=== PATIENT | male | born 1945 | race Caucasian/White ===

== ENCOUNTER 2016-08-05 06:14 | Inpatient (IN) | payer MEDICARE, OTHER ==
[2016-08-05] VITALS (9 sets, daily range): BP systolic 103–129; BP diastolic 51–88; PULSE 63–100; RESP 17–22; TEMP 97.8–99.5; O2SAT 92–100
[~2016-08-05] VITALS: Ht 170.2 cm; Wt 58.9 kg
[~2016-08-05 06:14] MED LIST: ACET325T PO; ALPR.25 PO; AMMO12CR4 TOP; BUME1TAB28 PO; CEFT500T3 PO; CLOT1CRE TOPICAL; DAKINSHST TOPICAL; ESCI10TA PO; FENO160T PO; FERR324T4 PO; FURO1TAB60 PO; GNP3TAB PO; HYDR-3583 PO; LEVO750T33 PO; LOSA100T PO; MAGO400T PO; METO100T9 PO; MULT1TAB84 PO; POTA-163 PO; RIVA4.6T T-DERMAL; XARE10TA PO
[2016-08-05 07:06] LABS: AUTOMATED NEUTROPHIL # 4.6 TH/MM3 (1.8-7.7); BASOPHIL % 0.4 % (0.0-2.0); HEMATOCRIT 28.3 % (39.0-51.0); HEMO FLAGS DIFF FINAL; LYMPH % 13.4 % (9.0-44.0); LYMPHOCYTE # 0.8 TH/MM3 (1.0-4.8); MEAN CORPUSCULAR HEMOGLOBIN 32.8 PG (27.0-34.0); MEAN CORPUSCULAR HGB CONC 34.2 % (32.0-36.0); MONO % 9.9 % (0.0-8.0); NEUT % 76.3 % (16.0-70.0); PLATELET COUNT 230 TH/MM3 (150-450); RED BLOOD COUNT 2.94 MIL/MM3 (4.50-5.90); RED CELL DISTRIBUTION WIDTH 15.5 % (11.6-17.2); WHITE BLOOD COUNT 6.1 TH/MM3 (4.0-11.0)
[2016-08-05 07:17] LABS: APTT (PATIENT) 31.1 SEC (24.3-30.1); INTERNATIONAL NORMALIZED RATIO 1.2 RATIO; PROTHROMBIN TIME - PATIENT 13.4 SEC (9.8-11.6)
--- NOTE | 2016-08-05 07:21 | RADRPT ---
EXAM DATE/TIME: 08/05/2016 06:43 [facility] COMPARISON: No previous studies available for comparison. INDICATIONS : Patient states he unable to urinate. ORAL CONTRAST: No oral contrast ingested. RADIATION DOSE: 14.54 CTDIvol (mGy) MEDICAL HISTORY : Cardiovascular disease. Gastroesophageal reflux disease. Congestive heart failure.Coronary artery dis ease. Hypertension. SURGICAL HISTORY : Pacemaker. CABGCardiac catherization. Right lower lobectomy. Right femur surgery. ENCOUNTER: Initial ACUITY: 3 weeks PAIN SCALE: 9/10 LOCATION: Bilateral lower quadrant TECHNIQUE: Volumetric scanning of the abdomen and pelvis was performed. Using automated exposure control and ad justment of the mA and/or kV according to patient size, radiation dose was kept as low as reasonably achievable to obtain optimal diagnostic quality images. FINDINGS: LOWER LUNGS: The visualized lower lungs are clear. LIVER: Homogeneous density without lesion. There is no dilation of the biliary tree. Cholecystectomy clips. SPLEEN: Normal size without lesion. PANCREAS: Within normal limits. KIDNEYS: Normal in size and shape. There is no mass, stone, or hydronephrosis. Bilateral renal low densities likely related to cysts the largest in the upper pole on the right measuring 3.6 cm and lower pole an d the left measuring 2.9 cm. Several other smaller low densities are seen. ADRENAL GLANDS: Within normal limits. VASCULAR: There is no aortic aneurysm. BOWEL/MESENTERY: There is diverticulosis of the colon no diverticulitis. There is no free intraperitoneal air or flui d. ABDOMINAL WALL: Within normal limits. RETROPERITONEUM: There is no lymphadenopathy. BLADDER: No wall thickening or mass. There is distention. REPRODUCTIVE: There is evidence of previous TURP. INGUINAL: There is no lymphadenopathy or hernia. MUSCULOSKELETAL: Within normal limits for patient age. CONCLUSION: 1. Distended urinary bladder. 2. Bilateral renal low-density likely related to cyst. 3. Diverticulosis without diverticulitis. Triston Guadarrama MD on August 05, 2016 at 7:14 Board Certified Radiologist. This report was verified electronically.
[2016-08-05 07:22] LABS: ALT (GPT) 14 U/L (12-78); ANION GAP 7 MEQ/L (5-15); AST (GOT) 18 U/L (15-37); BICARBONATE 28.8 MEQ/L (21.0-32.0); BLOOD UREA NITROGEN 46 MG/DL (7-18); CHLORIDE 97 MEQ/L (98-107); GLOMERULAR FILTRATION RATE 30 ML/MIN (>89); MAGNESIUM 2.3 MG/DL (1.5-2.5); POTASSIUM 4.5 MEQ/L (3.5-5.1); SODIUM (NA) 133 MEQ/L (136-145)
--- NOTE | 2016-08-05 07:22 | RADRPT ---
EXAM DATE/TIME: 08/05/2016 07:11 [facility] COMPARISON: CHEST SINGLE AP, March 22, 2016, 21:57. INDICATIONS : Cough. MEDICAL HISTORY : Cardiovascular disease. SURGICAL HISTORY : CABG. Pacemaker. Carotid stent. ENCOUNTER: Initial ACUITY: 2 days PAIN SCORE: 0/10 LOCATION: Bilateral chest FINDINGS: A single view of the chest demonstrates cardiomegaly. Minimal left basilar density. Right lung relati vely clear. Evidence of previous CABG. Left-sided pacemaker with 3 intact leads. The cardiomediastin al contours are unremarkable. Osseous structures are intact. CONCLUSION: 1. Cardiomegaly with previous CABG. 2. Minimal left basilar density likely atelectasis or minimal infiltrate. Triston Guadarrama MD on August 05, 2016 at 7:19 Board Certified Radiologist. This report was verified electronically.
[2016-08-05 07:26] LABS: ALKALINE PHOSPHATASE 60 U/L (45-117); TOTAL BILIRUBIN ADULT 0.7 MG/DL (0.2-1.0)
[2016-08-05 07:28] LABS: CREATINE KINASE 30 U/L (39-308)
--- NOTE | 2016-08-05 07:51 | PD ---
HPI Chief Complaint: Complaint Time Seen by Provider: 06:23 Travel History International Travel<30 days: No Contact w/Intl Traveler<30days: No Traveled to known affect area: No History of Present Illness HPI The patient is a 71 year old male who presents to the [facility] emergency department with a history of hematuria that is intermittently been a problem for weeks. The patient reports that he has been seen in the past by Dr. Mejia, however he has not seen him in approximately 4 years, by his report. The patient's primary care physician is Dr. Bob. The patient reports that recently he has had a recurrence of the hematuria. He reports that he is on Xarelto for atrial fibrillation. He reports that he has been intermittently catheterized at his half-way for urinary retention. An attempt was made to catheterize him prior to arrival 4-5 times due to urinary retention, however this was unsuccessful. The patient reports that the pain was increasing, therefore ambulance services were called. According to review of the electronic medical record the patient had a similar occurrence in the past and was brought to the emergency department. Attempts were made to place a catheter in the emergency department, however the catheter would not pass. A consultation urgently with the urologist was made and the urologist came in to assist with catheter placement on that occasion. The patient denies any recent fevers, cough, congestion, neck pain, chest pain, shortness of breath, vomiting , diarrhea, or neurologic symptoms. 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 Hx Anticoagulant Therapy: Yes (XARELTO) Arthritis: Yes Asthma: Yes Atrial Fibrillation: Yes Anxiety: No Depression: No Heart Rhythm Problems: Yes (Tachycardia, Irregular Heartbeat, Atrial Fibrillation) Cancer: No Cardiac Catheterization: Yes Cardiovascular Problems: Yes (CHF/STENTx1/CABGx5) High Cholesterol: Yes Chemotherapy: No Chest Pain: No Congestive Heart Failure: Yes COPD: No Cerebrovascular Accident: No Coronary Artery Disease: Yes Diminished Hearing: No Endocrine: No Gastrointestinal Disorders: Yes GERD: Yes Genitourinary: Yes Headaches: No Hiatal Hernia: No Hypertension: Yes Immune Disorder: No Implanted Vascular Access Dvce: Yes Kidney Stones: No Musculoskeletal: Yes Neurologic: Yes (Restless legs syndrome) Psychiatric: No Reproductive: No Respiratory: Yes (R LOBECTOMY) Immunizations Current: Yes Migraines: No Radiation Therapy: No Renal Failure: No Seizures: No Sickle Cell Disease: No Sleep Apnea: Yes Thyroid Disease: No Ulcer: No Past Surgical History Narrative Surgical The patient's past surgical history is significant for a 5 vessel bypass, cholecystectomy, pacemaker placement, coronary artery stenting, partial lung resection. Abdominal Surgery: Yes (cholecystectomy, Blockage in dudodenal ) AICD: No Arteriovenous Shunt: No Cardiac Surgery: Yes (1990) Cholecystectomy: Yes Coronary Artery Bypass Graft: Yes (x5) Coronary Stent: Yes (x1) Ear Surgery: No Endocrine Surgery: No Eye Surgery: No Genitourinary Surgery: No Gynecologic Surgery: No Insulin Pump: No Joint Replacement: No Neurologic Surgery: No Oral Surgery: No Pacemaker: Yes (Pre[employer]bock Model- [id number]) Thoracic Surgery: Yes (RIGHT LOWER LOBECTOMY) Other Surgery: Yes (cabg,pacemaker,r lower lobectomy) Social History Alcohol Use: No Tobacco Use: No (QUIT 30 YRS AGO ) Substance Use: No Allergies-Medications (Allergen,Severity, Reaction): Coded Allergies: No Known Allergies (Unverified , 08/05/16) Reported Meds & Prescriptions Reported Meds & Active Scripts Active Reported Pyridium (Phenazopyridine HCl) 100 Mg Tab 100 Mg PO Q8HR Ditropan (Oxybutynin Chloride) 5 Mg Tab 5 Mg PO Q12HR Flomax (Tamsulosin HCl) 0.4 Mg Cap 0.4 Mg PO DAILY Gentamicin Topical 0.1% Oint 1 Applic TOP DAILY Apply to rt foot between 2-3 toes Polly-Colace (Sennosides-Docusate Sodium) 8.6-50 Mg Tab 1 Tab PO BID Atorvastatin (Atorvastatin Calcium) 20 Mg Tab 20 Mg PO HS Zantac (Ranitidine HCl) 150 Mg Tab 150 Mg PO BID Nystatin Topical 100,000 unit/gm Oint 1 Applic TOPICAL Q12HR Requip (Ropinirole) 4 Mg Tab 4 Mg PO Q8HR PRN Citroma Liq (Magnesium Citrate) 300 Ml Liq 300 Ml PO ONCE PRN Milk of Magnesia Liq (Magnesium Hydroxide) 400 Mg/5 Ml Susp 30 Ml PO DIRECTED PRN Enema Disposable (Sodium Phosphates) 1 Chiqusi Chiquis 1 Applic SC DIRECTED PRN Tessalon Perles (Benzonatate) 100 Mg Cap 200 Mg PO TID PRN Dulcolax Supp (Bisacodyl) 10 Mg Supp 10 Mg SC DAILY PRN GIVE IF NO RESULTS 1 DAY AFTER MILK OF MAGNESIA Zofran (Ondansetron HCl) 4 Mg Tab 4 Mg PO Q4HR PRN Acetaminophen 325 Mg Tab 650 Mg PO Q4-6H PRN Ammonium Lactate (Lactic Acid) 12 % Cre 1 Applic TOP BID APPLY TO:Whole body, excluding skin folds and web spaces Xarelto (Rivaroxaban) 10 Mg Tab 10 Mg PO DAILY Potassium Chloride ER (Potassium Chloride) 20 Meq Tab 20 Meq PO DAILY Multivitamin Adults (Multiple Vitamins W/ Minerals) 1 Tab 1 Tab PO DAILY Metoprolol Succinate ER 24 HR (Metoprolol Succinate) 100 Mg Tab 100 Mg PO DAILY Gnp Melatonin (Melatonin) 3 Mg Tab 6 Mg PO HS Magox (Magnesium Oxide) 400 Mg Tab 400 Mg PO DAILY Losartan (Losartan Potassium) 100 Mg Tab 100 Mg PO HS Ferrous Sulfate DR (Ferrous Sulfate) 324 Mg Tabdr 324 Mg PO DAILY Fenofibrate 160 Mg Tab 160 Mg PO DAILY Exelon Patch (Rivastigmine) 4.6 mg/24 hr Patch 1 Patch T-DERMAL HS Escitalopram (Escitalopram Oxalate) 10 Mg Tab 10 Mg PO DAILY Dakins Solution Half Strength Topical (Sodium Hypochlorite) 0.2-0.25 % Soln 1 Applic TOPICAL DAILY Apply to rt foot between 2-3 toes Bumex (Bumetanide) 2 Mg Tab 2 Mg PO DAILY Review of Systems General / Constitutional: No: Fever Eyes: No: Visual changes HENT: No: Headaches Cardiovascular: No: Chest Pain or Discomfort Respiratory: No: Shortness of Breath Gastrointestinal: Positive: Abdominal Pain, No: Nausea, Vomiting, Diarrhea Genitourinary: Positive: Hematuria, Hesitancy, Dribbling, Incontinence, No: Dysuria Musculoskeletal: No: Pain Skin: No Rash Neurologic: No: Weakness Psychiatric: No: Depression Endocrine: No: Polydipsia Hematologic/Lymphatic: No: Easy Bruising Physical Exam Narrative General: The patient is a well-developed well-nourished male, uncomfortable appearing on arrival, holding his lower abdomen. Head and Neck exam: Head is normocephalic atraumatic. Eyes: EOMI, pupils are equal round and reactive to light. Nose: Midline septum with pink mucous membranes Mouth: Dentition unremarkable. Moist mucus membranes. Posterior oropharynx is not erythematous. No tonsillar hypertrophy. Uvula midline. Airway patent. Neck: No palpable lymphadenopathy. No nuchal rigidity. No thyromegaly. Cardiovascular: Regular rate and rhythm without murmurs, gallops, or rubs. Lungs: Clear to auscultation bilaterally. No wheezes, rhonchi, or rales. Abdomen: Soft, suprapubic abdominal distention and tenderness on palpation consistent with urinary retention. No other tenderness on palpation in the upper quadrants of the abdomen. Negative Chawla sign. No guarding, rebound, or rigidity. Normal bowel sounds are audible. Extremities: No clubbing or cyanosis. The patient has 1+ pitting edema bilateral lower extremities. 2+ + pulses in bilateral upper extremities. Back: No spinous process tenderness to palpation. No costovertebral angle tenderness to palpation. Neurologic Exam: Grossly nonfocal. Skin Exam: No rash noted. Intact skin that is warm and dry. Data Data Last Documented VS Vital Signs Date Time Temp Pulse Resp B/P Pulse Ox O2 Delivery O2 Flow Rate FiO2 08/05/16 07:00 98 Room Air 2 08/05/16:17 98.4 66 18 103/51 Orders Electrocardiogram (08/05/16 06:32) Complete Blood Count With Diff (08/05/16 06:32) Comprehensive Metabolic Panel (08/05/16 06:32) Prothrombin Time / Inr (Pt) (08/05/16 06:32) Act Partial Throm Time (Ptt) (08/05/16 06:32) Lactic Acid Sepsis Protocol (08/05/16 06:32) Magnesium (Mg) (08/05/16 06:32) Lipase (08/05/16 06:32) Ckmb (Isoenzyme) Profile (08/05/16 06:32) Troponin I (08/05/16 06:32) Urinalysis - C+S If Indicated (08/05/16 06:32) Blood Culture (08/05/16 06:32) Chest, Single Ap (08/05/16 06:32) Blood Glucose (08/05/16 06:32) Ecg Monitoring (08/05/16 06:32) Iv Access Insert/Monitor (08/05/16 06:32) Oximetry (08/05/16 06:32) Oxygen Administration (08/05/16 06:32) Urinary Catheter Insert/Apply (08/05/16 06:32) Ct Abd/Pel W/O Iv Contrast (08/05/16 06:32) Admit Order (Ed Use Only) (08/05/16 08:01) Labs Laboratory Tests Test 08/05/16 08/05/16 06:40 07:45 White Blood Count 6.1 TH/MM3 Red Blood Count 2.94 MIL/MM3 Hemoglobin 9.7 GM/DL Hematocrit 28.3 % Mean Corpuscular Volume 96.0 FL Mean Corpuscular Hemoglobin 32.8 PG Mean Corpuscular Hemoglobin 34.2 % Concent Red Cell Distribution Width 15.5 % Platelet Count 230 TH/MM3 Mean Platelet Volume 8.9 FL Neutrophils (%) (Auto) 76.3 % Lymphocytes (%) (Auto) 13.4 % Monocytes (%) (Auto) 9.9 % Eosinophils (%) (Auto) 0.0 % Basophils (%) (Auto) 0.4 % Neutrophils # (Auto) 4.6 TH/MM3 Lymphocytes # (Auto) 0.8 TH/MM3 Monocytes # (Auto) 0.6 TH/MM3 Eosinophils # (Auto) 0.0 TH/MM3 Basophils # (Auto) 0.0 TH/MM3 CBC Comment DIFF FINAL Differential Comment Prothrombin Time 13.4 SEC Prothromb Time International 1.2 RATIO Ratio Activated Partial 31.1 SEC Thromboplast Time Sodium Level 133 MEQ/L Potassium Level 4.5 MEQ/L Chloride Level 97 MEQ/L Carbon Dioxide Level 28.8 MEQ/L Anion Gap 7 MEQ/L Blood Urea Nitrogen 46 MG/DL Creatinine 2.19 MG/DL Estimat Glomerular Filtration 30 ML/MIN Rate Random Glucose 98 MG/DL Calcium Level 9.4 MG/DL Magnesium Level 2.3 MG/DL Total Bilirubin 0.7 MG/DL Aspartate Amino Transf 18 U/L (AST/SGOT) Alanine Aminotransferase 14 U/L (ALT/SGPT) Alkaline Phosphatase 60 U/L Total Creatine Kinase 30 U/L Troponin I LESS THAN 0.02 NG/ML Total Protein 7.3 GM/DL Albumin 3.3 GM/DL Lipase 117 U/L Urine Color THI Urine Turbidity HAZY Urine pH 5.5 Urine Specific [place] 1.012 Urine Protein NEG mg/dL Urine Glucose (UA) NEG mg/dL Urine Ketones NEG mg/dL Urine Occult Blood MOD Urine Nitrite NEG Urine Bilirubin NEG Urine Urobilinogen LESS THAN 2.0 MG/DL Urine Leukocyte Esterase MOD Urine RBC /hpf Urine WBC 24 /hpf Urine Bacteria OCC /hpf Urine Hyaline Casts 2 /lpf Urine Mucus FEW /lpf Microscopic Urinalysis Comment CATH-CULTURE IND Lactic Acid Level 2.1 mmol/L MDM Medical Decision Making Medical Screen Exam Complete: Yes Emergency Medical Condition: Yes Medical Record Reviewed: Yes Interpretation(s) Last Impressions Chest X-Ray 08/05/16631 Signed Impressions: Service Date/Time: Friday, August 05, 2016 07:11 - CONCLUSION: 1. Cardiomegaly with previous CABG. 2. Minimal left basilar density likely atelectasis or minimal infiltrate. Triston Guadarrama MD Abdomen/Pelvis CT 08/05/16631 Signed Impressions: Service Date/Time: Friday, August 05, 2016 06:43 - CONCLUSION: 1. Distended urinary bladder. 2. Bilateral renal low-density likely related to cyst. 3. Diverticulosis without diverticulitis. Triston Guadarrama MD Differential Diagnosis Urinary retention, versus renal failure, versus congestive heart failure exacerbation Narrative Course During the course of the patients emergency department visit, the patients history, examination, and differential diagnosis were reviewed with the patient. The patient had IV access obtained and blood work sent for analysis. Patient was placed on a yard caller with oximetry and blood pressure monitoring. An EKG was done on arrival. The patient's EKG shows an electronic paced rhythm with occasional PVCs. No other acute abnormality. A Bustamante catheter will be attempted to be placed to gravity. Multiple attempts were made at placing a catheter, and the catheter seems to be going into the bladder, however not advancing and continuing to drain urine, however this was removed. A call was placed out to the urologist credit verification clerk. I spoke to Dr. Altamirano did agree to see the patient in consultation. The patient actually after attempts at placing the catheter did urinate a significant amount according to the nurse. A urine was sent to the lab for analysis. The patient reported feeling improved. The patients laboratory studies were reviewed and remarkable for a CMP that was remarkable for an elevated BUN and creatinine compared to previously consistent with acute on chronic renal failure. A CBC that shows a white count of 6.1, hemoglobin 9.7, platelets 2:30 with 76.3 neutrophils Radiology studies were reviewed and remarkable for a chest x-ray that shows cardiomegaly with a previous CABG, minimal left base density likely atelectasis or minimal infiltrate, CT scan of the abdomen and pelvis shows a distended urinary bladder, bilateral renal low densities likely related to cysts, diverticulosis without diverticulitis. The patients results were discussed with the patient, including the plan of care. I explained that further testing and/ or monitoring is indicated based on the patients history, examination, and/ or laboratory findings. Therefore, I recommended admission for additional evaluation. The patient expressed understanding and was agreeable with this plan. The patient was admitted to the hospital in stable condition and sent to a bed under the care of the [facility] hospitalist service. Physician Communication Physician Communication The patient's case is discussed with Dr. García who did agree to admit the patient to the hospitalist service. The patient's case is discussed with Dr. Altamirano at 8:12 AM and he did agree to see the patient in consultation for urinary retention. Diagnosis Primary Impression: Urinary retention Additional Impressions: Hematuria Acute on chronic renal failure Admitting Information Admitting Physician Requests: Admit Scripts Cefuroxime (Ceftin)500 Mg [id number] Mg PO BID #14 TAB Ref 0 Prov:Roger Dickerson MD 08/06/16 Alprazolam (Xanax)0.25 Mg Tab0.25 Mg PO Q8H PRN (ANXIETY) #20 TAB Ref 0 Prov:Roger Dickerson MD 08/06/16 Hydrocodone-Acetaminophen 10-325 mg Tab1 Tab PO Q4H PRN (PAIN) #21 TAB Ref 0 Prov:Roger Dickerson MD 08/06/16 Milly Jara MD Aug 05, 2016 07:51
[2016-08-05 08:12] LABS: BACTERIA, URINE OCC /hpf; BLOOD, URINE MOD (NEG); GLUCOSE,URINE NEG (NEG); HYALINE CAST, URINE 2 /lpf (RARE); KETONE, URINE NEG (NEG); MUCUS URINE FEW /lpf (OCC); NITRITE,URINE NEG (NEG); PH, URINE 5.5 (5.0-8.5)
[2016-08-05 08:13] LABS: COMMENT (UR) CATH-CULTURE IND; CULTURE IF INDICATED CATH CULTURE IND; URINE COLOR AMBER (YELLW/STRAW)
[2016-08-05] MEDS ORDERED: LORazepam 2 MG/ML VIAL IV PUSH ONE (08:30)
[2016-08-05] MEDS ORDERED: BENZTROPINE MESYLATE 2 MG/2 ML VIAL IV PUSH ONE (08:30)
[2016-08-05] MEDS ORDERED: CITRSOL4 PO (09:33)
[2016-08-05] MEDS ORDERED: NYST100084 TOPICAL (09:33)
[2016-08-05] MEDS ORDERED: BENZ100 PO (09:33)
[2016-08-05] MEDS ORDERED: MILKSUS PO (09:33)
[2016-08-05] MEDS ORDERED: ZANT150T2 PO (09:33)
[2016-08-05] MEDS ORDERED: ATOR20TA15 PO (09:33)
[2016-08-05] MEDS ORDERED: DULC10SU3 PR (09:33)
[2016-08-05] MEDS ORDERED: ENEMENE5 PR (09:33)
[2016-08-05] MEDS ORDERED: PHEN0.4T PO (09:33)
[2016-08-05] MEDS ORDERED: REQU4TAB3 PO (09:33)
[2016-08-05] MEDS ORDERED: TAMS5CAP PO (09:33)
[2016-08-05] MEDS ORDERED: OXYB5TAB10 PO (09:33)
[2016-08-05] MEDS ORDERED: GENT0.1O2 TOP (09:33)
[2016-08-05] MEDS ORDERED: ZOFR4TAB PO (09:33)
[2016-08-05] MEDS ORDERED: PERI8.6T PO (09:33)
[2016-08-05 09:54] LABS: LACTIC ACID GHOST NOT REPORTABLE
[2016-08-05] MEDS ORDERED: NALOXONE HCL 0.4 MG/ML AMP IV PRN (15:45)
[2016-08-05] MEDS ORDERED: ONDANSETRON HCL 4 MG/2 ML VIAL IVP PRN (15:45)
[2016-08-05] MEDS ORDERED: ACETAMINOPHEN 325 MG TAB PO PRN (15:45)
[2016-08-05] MEDS ORDERED: SODIUM CHLORIDE 0.9% FLUSH 5 ML FLUSH FLUSH PRN (15:45)
[2016-08-05] MEDS ORDERED: BENZONATATE 100 MG CAP PO PRN (15:45)
[2016-08-05] MEDS ORDERED: SODIUM CHLOR 0.9% 1000 ML INJ 1,000 ML IV SCH (16:00)
[2016-08-05] MEDS ORDERED: cefTRIAXone INJ 1,000 MG in SODIUM CHLORIDE 0.9% INJ 100 ML IV SCH (16:00)
--- NOTE | 2016-08-05 16:03 | HHI.HP ---
[facility]-Staff Admission Diagnosis acute on chronic renal failure, urinary retention, hematuria Diagnoses: Chief Complaint: pelvic pain, difficulty urinating (Debora Cleaning) Travel History International Travel<30 Days: No Contact w/Intl Traveler <30 Da: No Traveled to Known Affected Are: No (Debora Cleaning) History of Present Illness This is a pleasant 71-year-old gentleman with a past medical history which includes hypertension chronic diastolic heart failure status post AICD, hyperlipidemia, atrial fibrillation, anxiety, depression, diet-controlled diabetes, obesity, obstructive sleep apnea, venous stasis bilateral lower extremities, restless leg syndrome, GERD, frequent falls, urinary retention requiring bruno insertion, acute renal injury. Patient presented to the emergency room from [facility], with complaints of difficulty urinating, pelvic pain, hematuria. Indicates this has been going on for approximately a week. Patient had a Bruno catheter inserted approximately a month ago for urinary retention which was eventually removed. He was also being treated for UTI. Bruno was eventually removed, however he had trouble initiating urinary stream, only voiding small amounts, he's noted increased pelvic pain. At the residential, they have been doing intermittent catheterization. Today staff attempted to insert bruno catheter, approximately 5 times, which was unsuccessful. Patient was sent for further evaluation. In the emergency room, patient was evaluated, laboratory workup was completed. CBC was remarkable for hemoglobin 9.7, hematocrit 28.3. He was noted in acute on chronic renal injury, with BUNs of 46 and creatinine of 2.19. Lactic acid was 2.1 Urinalysis was positive for leukocyte esterase, hematuria, bacteriuria. Abdomen and pelvis CT showed distended urinary bladder, bilateral renal low-density likely related cyst and diverticulosis without diverticulitis. Chest x-ray did not reveal any acute findings. Multiple attempts were made to place a catheter, it was difficult to advance. Dr. Altamirano was called however pt. was able to urinate on his own a significant amount. Patient indicated feeling better. Dr. Altamirano agreed to see the patient on consultation. Patient is now evaluated in room 1432, he has just finished voiding approximately 250 cc of sharmin urine. Denies any burning, no blood is evident. Patient indicates that he used to see Dr. Mejia as outpatient. The last time he saw him was 5 years ago, at that time he did a prostate check and he was found okay. PSA was also normal. Unfortunately as he has been in rehabilitation for the last 2 years, he has not had the opportunity to follow up. Patient is admitted for further palliation and treatment (Debora Cleaning) Review of Systems Constitutional: DENIES: Diaphoretic episodes, Fatigue, Fever, Weight gain, Weight loss, Chills, Dizziness, Change in appetite, Night Sweats Endocrine: DENIES: Heat/cold intolerance, Polydipsia, Polyuria, Polyphagia Eyes: DENIES: Blurred vision, Diplopia, Eye inflammation, Eye pain, Vision loss , Photosensitivity, Double Vision Ears, nose, mouth, throat: DENIES: Tinnitus, Hearing loss, Vertigo, Nasal discharge, Oral lesions, Throat pain, Hoarseness, Ear Pain, Running Nose, Epistaxis, Sinus Pain, Toothache, Odynophagia Respiratory: DENIES: Apneas, Cough, Snoring, Wheezing, Hemoptysis, Sputum production, Shortness of breath Cardiovascular: COMPLAINS OF: Lower Extremity Edema (chronic, improving ), DENIES: Chest pain, Palpitations, Syncope, Dyspnea on Exertion, PND, Orthopnea, Claudication Gastrointestinal: DENIES: Abdominal pain, Black stools, Bloody stools, Constipation, Diarrhea, Nausea, Vomiting, Difficulty Swallowing, Anorexia Genitourinary: COMPLAINS OF: Urinary frequency, Urinary incontinence, Urgency, Hematuria, DENIES: Sexual dysfunction, Dysuria, Nocturia, Penile Discharge, Testicular Pain, Testicular Swelling Musculoskeletal: DENIES: Joint pain, Muscle aches, Stiffness, Joint Swelling, Back pain, Neck pain Integumentary: DENIES: Abnormal pigmentation, Nail changes, Pruritus, Rash Hematologic/lymphatic: DENIES: Bruising, Lymphadenopathy Immunologic/allergic: DENIES: Eczema, Urticaria Neurologic: DENIES: Abnormal gait, Headache, Localized weakness, Paresthesias, Seizures, Speech Problems, Tremor, Poor Balance Psychiatric: DENIES: Anxiety, Confusion, Mood changes, Depression, Hallucinations, Agitation, Suicidal Ideation, Homicidal Ideation, Delusions ( Debora Cleaning) Past Family Social History Past Medical History CHF-Diastolic A. fib Coronary artery disease Obstructive sleep apnea Hyperlipidemia Urinary retention, has required bruno insertion in the past Frequent UTIs Peripheral edema Venous stasis ulcers-improved Obesity RLS CAD, stents Cardiomyopathy Past Surgical History Cholecystectomy Partial lobectomy secondary to pneumonia scarring CABG 5 Stent placement Tonsillectomy Bowel resection secondary to small bowel obstruction Reported Medications Reported Meds & Active Scripts Active Reported Pyridium (Phenazopyridine HCl) 100 Mg Tab 100 Mg PO Q8HR Ditropan (Oxybutynin Chloride) 5 Mg Tab 5 Mg PO Q12HR Flomax (Tamsulosin HCl) 0.4 Mg Cap 0.4 Mg PO DAILY Gentamicin Topical 0.1% Oint 1 Applic TOP DAILY Apply to rt foot between 2-3 toes Polly-Colace (Sennosides-Docusate Sodium) 8.6-50 Mg Tab 1 Tab PO BID Atorvastatin (Atorvastatin Calcium) 20 Mg Tab 20 Mg PO HS Zantac (Ranitidine HCl) 150 Mg Tab 150 Mg PO BID Nystatin Topical 100,000 unit/gm Oint 1 Applic TOPICAL Q12HR Requip (Ropinirole) 4 Mg Tab 4 Mg PO Q8HR PRN Citroma Liq (Magnesium Citrate) 300 Ml Liq 300 Ml PO ONCE PRN Milk of Magnesia Liq (Magnesium Hydroxide) 400 Mg/5 Ml Susp 30 Ml PO DIRECTED PRN Enema Disposable (Sodium Phosphates) 1 Chiquis Chiquis 1 Applic MD DIRECTED PRN Tessalon Perles (Benzonatate) 100 Mg Cap 200 Mg PO TID PRN Dulcolax Supp (Bisacodyl) 10 Mg Supp 10 Mg MD DAILY PRN GIVE IF NO RESULTS 1 DAY AFTER MILK OF MAGNESIA Zofran (Ondansetron HCl) 4 Mg Tab 4 Mg PO Q4HR PRN Xanax (Alprazolam) 0.25 Mg Tab 0.25 Mg PO Q8H PRN Hydrocodone-Acetaminophen 10-325 mg Tab 1 Tab PO Q4H PRN Acetaminophen 325 Mg Tab 650 Mg PO Q4-6H PRN Lasix (Furosemide) 40 Mg Tab 40 Mg PO BID Ammonium Lactate (Lactic Acid) 12 % Cre 1 Applic TOP BID APPLY TO:Whole body, excluding skin folds and web spaces Xarelto (Rivaroxaban) 10 Mg Tab 10 Mg PO DAILY Potassium Chloride ER (Potassium Chloride) 20 Meq Tab 20 Meq PO DAILY Multivitamin Adults (Multiple Vitamins W/ Minerals) 1 Tab 1 Tab PO DAILY Metoprolol Succinate ER 24 HR (Metoprolol Succinate) 100 Mg Tab 100 Mg PO DAILY Gnp Melatonin (Melatonin) 3 Mg Tab 6 Mg PO HS Magox (Magnesium Oxide) 400 Mg Tab 400 Mg PO DAILY Losartan (Losartan Potassium) 100 Mg Tab 100 Mg PO HS Ferrous Sulfate DR (Ferrous Sulfate) 324 Mg Tabdr 324 Mg PO DAILY Fenofibrate 160 Mg Tab 160 Mg PO DAILY Exelon Patch (Rivastigmine) 4.6 mg/24 hr Patch 1 Patch T-DERMAL HS Escitalopram (Escitalopram Oxalate) 10 Mg Tab 10 Mg PO DAILY Dakins Solution Half Strength Topical (Sodium Hypochlorite) 0.2-0.25 % Soln 1 Applic TOPICAL DAILY Apply to rt foot between 2-3 toes Bumex (Bumetanide) 2 Mg Tab 2 Mg PO DAILY (Debora Cleaning) Allergies: Coded Allergies: No Known Allergies (Unverified , 08/05/16) Active Ordered Medications Inpatient Medications Acetaminophen (Tylenol) 650 mg Q4H PRN PO TEMP > 100.4; Start 08/05/16 at 15:45 Benztropine Mesylate (Cogentin Inj) 1 mg ONCE ONCE IV PUSH ; Start 08/05/16 at 08:30; Stop 08/05/16 at 08:30; Status DC Ceftriaxone Sodium 1000 mg/ Sodium Chloride 100 ml @ 200 mls/hr Q24H IV ; Start 08/05/16 at 16:00 IV Flush (NS Flush) 2 ml BID FLUSH ; Start 08/05/16 at 21:00 Lorazepam (Ativan Inj) 1 mg ONCE ONCE IV PUSH ; Start 08/05/16 at 08:30; Stop 08/05/16 at 08:30; Status DC Naloxone HCl 0.4 mg 0.4 mg UNSCH PRN IV SEE LABEL COMMENTS; Start 08/05/16 at 15:45 Ondansetron HCl (Zofran Inj) 4 mg Q6H PRN IVP NAUSEA OR VOMITING; Start at 15:45 Sodium Chloride (NS 1000 ml Inj) 1,000 ml @ 42 mls/hr [id number] IV ; Start at 15:45; Status UNV Family History Mother of brain tumor. Dad of [place] at age 65. Social History Lives at [facility]. Previous history of smoking one third pack per day 15 years, quit in the early 90s. Denies alcohol or illicit drugs. Has no family in town, has grown children in [place]. (HermilaDebora FabioJosé Manuel MULLEN) Physical Exam Vital Signs Vital Signs Date Time Temp Pulse Resp B/P Pulse Ox O2 Delivery O2 Flow Rate FiO2 08/05/16 14:33 97.8 68 18 123/88 97 Nasal Cannula 3 08/05/16 13:06 72 18 126/67 98 Nasal Cannula 3 08/05/16 11:59 98.0 72 18 120/68 97 Nasal Cannula 3 08/05/16 08:40 63 17 109/57 92 Nasal Cannula 2 08/05/16 07:00 98 Room Air 2 08/05/16 06:17 98.4 66 18 103/51 100 Physical Exam GENERAL: This is a well-nourished, well-developed patient, in no apparent distress. SKIN: No rashes, ecchymoses or lesions. Cool and dry. HEAD: Atraumatic. Normocephalic. No temporal or scalp tenderness. EYES: Pupils equal round and reactive. Extraocular motions intact. No scleral icterus. No injection or drainage. ENT: Nose without bleeding, purulent drainage or septal hematoma. Throat without erythema, tonsillar hypertrophy or exudate. Uvula midline. Airway patent. NECK: Trachea midline. No JVD or lymphadenopathy. Supple, nontender, no meningeal signs. CARDIOVASCULAR: Irregular rate and rhythm without murmurs, gallops, or rubs. RESPIRATORY: Clear to auscultation. Breath sounds equal bilaterally. No wheezes , rales, or rhonchi. GASTROINTESTINAL: Abdomen soft, non-tender, nondistended. No hepato-splenomegaly , or palpable masses. No guarding. MUSCULOSKELETAL: Extremities without clubbing, cyanosis. Both legs with chronic venous discoloration, pretibial edema, pedal pulses +1 bilat. No joint tenderness, effusion, or edema noted. No calf tenderness. Negative Homans sign bilaterally. NEUROLOGICAL:Awake, oriented x 4, grossly normal. No focal deficits. Laboratory Laboratory Tests Test 08/05/16 08/05/16 06:40 07:45 White Blood Count 6.1 Red Blood Count 2.94 Hemoglobin 9.7 Hematocrit 28.3 Mean Corpuscular Volume 96.0 Mean Corpuscular Hemoglobin 32.8 Mean Corpuscular Hemoglobin 34.2 Concent Red Cell Distribution Width 15.5 Platelet Count 230 Mean Platelet Volume 8.9 Neutrophils (%) (Auto) 76.3 Lymphocytes (%) (Auto) 13.4 Monocytes (%) (Auto) 9.9 Eosinophils (%) (Auto) 0.0 Basophils (%) (Auto) 0.4 Neutrophils # (Auto) 4.6 Lymphocytes # (Auto) 0.8 Monocytes # (Auto) 0.6 Eosinophils # (Auto) 0.0 Basophils # (Auto) 0.0 CBC Comment DIFF FINAL Differential Comment Prothrombin Time 13.4 Prothromb Time International 1.2 Ratio Activated Partial 31.1 Thromboplast Time Sodium Level 133 Potassium Level 4.5 Chloride Level 97 Carbon Dioxide Level 28.8 Anion Gap 7 Blood Urea Nitrogen 46 Creatinine 2.19 Estimat Glomerular Filtration 30 Rate Random Glucose 98 Calcium Level 9.4 Magnesium Level 2.3 Total Bilirubin 0.7 Aspartate Amino Transf 18 (AST/SGOT) Alanine Aminotransferase 14 (ALT/SGPT) Alkaline Phosphatase 60 Total Creatine Kinase 30 Troponin I LESS THAN 0.02 Total Protein 7.3 Albumin 3.3 Lipase 117 Urine Color SHARMIN Urine Turbidity HAZY Urine pH 5.5 Urine Specific [place] 1.012 Urine Protein NEG Urine Glucose (UA) NEG Urine Ketones NEG Urine Occult Blood MOD Urine Nitrite NEG Urine Bilirubin NEG Urine Urobilinogen LESS THAN 2.0 Urine Leukocyte Esterase MOD Urine RBC Urine WBC 24 Urine Bacteria OCC Urine Hyaline Casts 2 Urine Mucus FEW Microscopic Urinalysis Comment CATH-CULTURE IND Lactic Acid Level 2.1 Date/Time Procedure Status Source Growth 08/05/16 07:45 Urine Culture Received Urine Catheterized Urine Pending 08/05/16 06:30 Aerobic Blood Culture Received Blood Peripheral Pending 08/05/16 06:30 Anaerobic Blood Culture Received Blood Peripheral Pending (Debora CleaningP) Result Diagram: 08/05/1640 08/05/1640 Imaging Last Impressions Chest X-Ray 08/05/1632 Signed Impressions: Service Date/Time: Friday, August 05, 2016 07:11 - CONCLUSION: 1. Cardiomegaly with previous CABG. 2. Minimal left basilar density likely atelectasis or minimal infiltrate. Triston Guadarrama MD Abdomen/Pelvis CT 08/05/1632 Signed Impressions: Service Date/Time: Friday, August 05, 2016 06:43 - CONCLUSION: 1. Distended urinary bladder. 2. Bilateral renal low-density likely related to cyst. 3. Diverticulosis without diverticulitis. Triston Guadarrama MD (Debora Cleaning) Assessment and Plan Problem List: (1) Urinary retention (2) Hematuria (3) Acute on chronic renal failure (4) Acute urinary obstruction (5) BPH (benign prostatic hypertrophy) (6) CAD (coronary artery disease) (7) Hyperlipidemia (8) Restless leg syndrome (9) GERD (gastroesophageal reflux disease) (10) HTN (hypertension) (11) MICHAEL (obstructive sleep apnea) (12) Venous stasis ulcer (13) H/O heart artery stent (14) Hx of cardiac pacemaker (15) HX AICD (16) Cardiomyopathy Assessment and Plan Admit to Dr. Dickerson 71-year-old male with history of urinary retention, recent indwelling catheter in UTI. Presented to emergency room with increasing pelvic pain, hematuria, difficulty voiding. Was found with urinary retention, Bruno catheter was attempted. Patient was able to void without further intervention Urinary retention, recurrent Urology has been consulted for evaluation Continue to monitor urine output Recurring UTI, recent catheterization, with lactic acidosis -We will start Rocephin 1 g IV daily Follow urine culture Acute on chronic renal injury secondary to obstructive uropathy -Continue with cautious hydration, normal saline at 42 an hour Follow BMP daily -Continue with tamsulosin and oxybutynin Chronic CHF, stable Monitor for signs and symptoms of fluid overload Resume Bumex in the morning -Cautious hydration History coronary artery disease, cardiomyopathy, pacemaker, AICD Continue with home meds Venous stasis -Continue with [place] wraps to both legs -Elevate legs -Continue with diuretics And fibrillation, well controlled Continue with beta blockers -Continue with Xarelto Chronic anemia Continue with iron replacement Monitor H&H Continue with Xarelto for DVT prophylaxis Pepcid for GI prophylaxis Plan of care has been discussed with the patient, attending and registered nurse. Further management of the patient will be dependent on hospital course This patient was seen by myself and Dr. Dickerson, this H&P is written on his behalf (Debora Cleaning) Assessment and Plan Pt seen and examined on floor with rn at bedside chart was reviewed meds and labs reviewed rad data reviewed notes reviewed plan of care dw legal process specialist rg rn (Roger Dickerson MD) Physician Certification 2 Midnight Certification Type: Admission for Inpatient Services Order for Inpatient Services The services are ordered in accordance with Medicare regulations or non- Medicare payer requirements, as applicable. In the case of services not specified as inpatient-only, they are appropriately provided as inpatient services in accordance with the 2-midnight benchmark. Estimated LOS (days): 2 2 days is the estimated time the patient will need to remain in the hospital, assuming treatment plan goals are met and no additional complications. Post-Hospital Plan: SNF (Debora Cleaning) Problem Qualifiers (1) BPH (benign prostatic hypertrophy): Qualified Code: N40.0 - Benign prostatic hyperplasia, presence of lower urinary tract symptoms unspecified, unspecified morphology (2) CAD (coronary artery disease): Qualified Code: I25.10 - Coronary artery disease involving [place] coronary artery of [place] heart without angina pectoris (3) Hyperlipidemia: Qualified Code: E78.5 - Hyperlipidemia, unspecified hyperlipidemia type (4) GERD (gastroesophageal reflux disease): Qualified Code: K21.9 - Gastroesophageal reflux disease, esophagitis presence not specified (5) Cardiomyopathy: Qualified Code: I42.9 - Cardiomyopathy, unspecified type Debora Cleaning Aug 05, 2016 16:03 Roger Dickerson MD Aug 05, 2016 21:05
--- NOTE | 2016-08-05 19:39 | PD.CONS ---
HPI Service Urology Consult Requested By Reason for Consult Urinary retention difficult catheter Primary Care Physician Non-Staff Diagnosis: History of Present Illness 71 yo male with history of HTN, afib, and DM seen in consultation for difficult bruno catheter placement. Attmepts by the staff was unsuccessful in placing a catheter. Patient had a urethral catheter in the past which was removed approx 3 weeeks ago. He is able to void however he does not empty and reports signficant lower abdominal and pelvic pain. Patient denies any fevers, chills, N /V. He does report some hematuria. Review of Systems ROS Limitations: Clinical Condition Constitutional: DENIES: Fever Endocrine: DENIES: Polyuria Eyes: DENIES: Vision loss Ears, nose, mouth, throat: DENIES: Hearing loss Respiratory: DENIES: Cough Cardiovascular: DENIES: Chest pain Gastrointestinal: COMPLAINS OF: Abdominal pain Genitourinary: COMPLAINS OF: Hematuria Musculoskeletal: DENIES: Back pain Integumentary: DENIES: Rash Hematologic/lymphatic: DENIES: Bruising Neurologic: DENIES: Headache Psychiatric: DENIES: Anxiety Except as stated in HPI: all other systems reviewed are Neg Past Family Social History Past Medical History Past Medical History CHF-Diastolic A. fib Coronary artery disease Obstructive sleep apnea Hyperlipidemia Urinary retention, has required bruno insertion in the past Frequent UTIs Peripheral edema Venous stasis ulcers-improved Obesity RLS CAD, stents Cardiomyopathy Past Surgical History Cholecystectomy Partial lobectomy secondary to pneumonia scarring CABG 5 Stent placement Tonsillectomy Bowel resection secondary to small bowel obstruction Reported Medications Reported Meds & Active Scripts Active Reported Pyridium (Phenazopyridine HCl) 100 Mg Tab 100 Mg PO Q8HR Ditropan (Oxybutynin Chloride) 5 Mg Tab 5 Mg PO Q12HR Flomax (Tamsulosin HCl) 0.4 Mg Cap 0.4 Mg PO DAILY Gentamicin Topical 0.1% Oint 1 Applic TOP DAILY Apply to rt foot between 2-3 toes Polly-Colace (Sennosides-Docusate Sodium) 8.6-50 Mg Tab 1 Tab PO BID Atorvastatin (Atorvastatin Calcium) 20 Mg Tab 20 Mg PO HS Zantac (Ranitidine HCl) 150 Mg Tab 150 Mg PO BID Nystatin Topical 100,000 unit/gm Oint 1 Applic TOPICAL Q12HR Requip (Ropinirole) 4 Mg Tab 4 Mg PO Q8HR PRN Citroma Liq (Magnesium Citrate) 300 Ml Liq 300 Ml PO ONCE PRN Milk of Magnesia Liq (Magnesium Hydroxide) 400 Mg/5 Ml Susp 30 Ml PO DIRECTED PRN Enema Disposable (Sodium Phosphates) 1 Chiquis Chiquis 1 Applic PA DIRECTED PRN Tessalon Perles (Benzonatate) 100 Mg Cap 200 Mg PO TID PRN Dulcolax Supp (Bisacodyl) 10 Mg Supp 10 Mg PA DAILY PRN GIVE IF NO RESULTS 1 DAY AFTER MILK OF MAGNEKATERINA Zofran (Ondansetron HCl) 4 Mg Tab 4 Mg PO Q4HR PRN Xanax (Alprazolam) 0.25 Mg Tab 0.25 Mg PO Q8H PRN Hydrocodone-Acetaminophen 10-325 mg Tab 1 Tab PO Q4H PRN Acetaminophen 325 Mg Tab 650 Mg PO Q4-6H PRN Lasix (Furosemide) 40 Mg Tab 40 Mg PO BID Ammonium Lactate (Lactic Acid) 12 % Cre 1 Applic TOP BID APPLY TO:Whole body, excluding skin folds and web spaces Xarelto (Rivaroxaban) 10 Mg Tab 10 Mg PO DAILY Potassium Chloride ER (Potassium Chloride) 20 Meq Tab 20 Meq PO DAILY Multivitamin Adults (Multiple Vitamins W/ Minerals) 1 Tab 1 Tab PO DAILY Metoprolol Succinate ER 24 HR (Metoprolol Succinate) 100 Mg Tab 100 Mg PO DAILY Gnp Melatonin (Melatonin) 3 Mg Tab 6 Mg PO HS Magox (Magnesium Oxide) 400 Mg Tab 400 Mg PO DAILY Losartan (Losartan Potassium) 100 Mg Tab 100 Mg PO HS Ferrous Sulfate DR (Ferrous Sulfate) 324 Mg Tabdr 324 Mg PO DAILY Fenofibrate 160 Mg Tab 160 Mg PO DAILY Exelon Patch (Rivastigmine) 4.6 mg/24 hr Patch 1 Patch T-DERMAL HS Escitalopram (Escitalopram Oxalate) 10 Mg Tab 10 Mg PO DAILY Dakins Solution Half Strength Topical (Sodium Hypochlorite) 0.2-0.25 % Soln 1 Applic TOPICAL DAILY Apply to rt foot between 2-3 toes Bumex (Bumetanide) 2 Mg Tab 2 Mg PO DAILY Allergies: Coded Allergies: No Known Allergies (Unverified , 08/05/16) Active Ordered Medications Current Medications Medications (Trade) Dose Ordered Sig/Elmer Route Start Time Stop Time Status Last Admin (NS Flush) 2 ml UNSCH PRN FLUSH 08/05/16 15:45 (NS Flush) 2 ml BID FLUSH 08/05/16 21:00 (Tylenol) 650 mg Q4H PRN PO 08/05/16 15:45 (Zofran Inj) 4 mg Q6H PRN IVP 08/05/16 15:45 Naloxone HCl 0.4 mg 0.4 mg UNSCH PRN IV 08/05/16 15:45 Ceftriaxone Sodium 1000 mg/ Sodium Chloride 100 ml @ 200 mls/hr Q24H IV 08/05/16 16:00 08/05/16 17:20 (NS 1000 ml Inj) 1,000 ml @ 42 mls/hr [id number] IV 08/05/16 16:00 08/05/16 16:13 (Lipitor) 20 mg HS PO 08/05/16 21:00 (Tessalon) 200 mg TID PRN PO 08/05/16 15:45 (Bumetanide) 2 mg DAILY PO 08/06/16 09:00 (Lexapro) 10 mg DAILY PO 08/06/16 09:00 (Tricor) 145 mg DAILY PO 08/06/16 09:00 (Ferrous Sulfate) 325 mg DAILY PO 08/06/16 09:00 (Gentamicin 0.1% Oint) 1 applic DAILY TOP 08/06/16 09:00 (Ditropan) 5 mg Q12HR PO 08/05/16 21:00 (Xarelto) 10 mg DAILY PO 08/06/16 09:00 (Exelon 4.6 Mg Patch.24hr) 1 patch HS T-DERMAL 08/05/16 21:00 (Requip) 4 mg Q8HR PRN PO 08/05/16 15:45 (Polly-Colace) 1 tab BID PO 08/05/16 21:00 (Flomax) 0.4 mg DAILY PO 08/06/16 09:00 (Lac-Hydrin 12% Lotion) 1 applic BID TOPICAL 08/05/16 21:00 (Toprol Xl) 100 mg DAILY PO 08/06/16 09:00 (Pepcid) 10 mg BID PO 08/05/16 21:00 Family History Mother of brain tumor. Dad of [place] at age 65. Social History Lives at [facility] [address]. Previous history of smoking one third pack per day 15 years, quit in the early 90s. Denies alcohol or illicit drugs. Has no family in [facility], has grown children in [place]. Physical Exam Vital Signs Vital Signs Date Time Temp Pulse Resp B/P Pulse Ox O2 Delivery O2 Flow Rate FiO2 08/05/16 15:00 98.3 97 22 121/59 97 08/05/16 14:33 97.8 68 18 123/88 97 Nasal Cannula 3 08/05/16 13:06 72 18 126/67 98 Nasal Cannula 3 08/05/16 11:59 98.0 72 18 120/68 97 Nasal Cannula 3 08/05/16 08:40 63 17 109/57 92 Nasal Cannula 2 08/05/16 07:00 98 Room Air 2 08/05/16 06:17 98.4 66 18 103/51 100 Physical Exam GENERAL: This is a well-nourished, well-developed patient, in no apparent distress. SKIN: No rashes, ecchymoses or lesions. Cool and dry. HEAD: Atraumatic. Normocephalic. EYES: Extraocular motions intact. No scleral icterus. No injection or drainage. ENT: Nose without bleeding, purulent drainage. Airway patent. NECK: Trachea midline. No JVD . CARDIOVASCULAR: Well perfused extremities, normal pulses. RESPIRATORY: Nonlabored respirations, equal chest rise. GASTROINTESTINAL: Abdomen soft, non-tender, nondistended. GENITOURINARY: Circumcised phalus, hypospadius noted MUSCULOSKELETAL: Extremities without clubbing, cyanosis, or edema. NEUROLOGICAL: Awake and alert. Motor and sensory grossly within normal limits. Normal speech. Laboratory Laboratory Tests Test 08/05/16 08/05/16 08/05/16 06:40 07:45 15:36 White Blood Count 6.1 Red Blood Count 2.94 Hemoglobin 9.7 Hematocrit 28.3 Mean Corpuscular Volume 96.0 Mean Corpuscular Hemoglobin 32.8 Mean Corpuscular Hemoglobin 34.2 Concent Red Cell Distribution Width 15.5 Platelet Count 230 Mean Platelet Volume 8.9 Neutrophils (%) (Auto) 76.3 Lymphocytes (%) (Auto) 13.4 Monocytes (%) (Auto) 9.9 Eosinophils (%) (Auto) 0.0 Basophils (%) (Auto) 0.4 Neutrophils # (Auto) 4.6 Lymphocytes # (Auto) 0.8 Monocytes # (Auto) 0.6 Eosinophils # (Auto) 0.0 Basophils # (Auto) 0.0 CBC Comment DIFF FINAL Differential Comment Prothrombin Time 13.4 Prothromb Time International 1.2 Ratio Activated Partial 31.1 Thromboplast Time Sodium Level 133 Potassium Level 4.5 Chloride Level 97 Carbon Dioxide Level 28.8 Anion Gap 7 Blood Urea Nitrogen 46 Creatinine 2.19 Estimat Glomerular Filtration 30 Rate Random Glucose 98 Calcium Level 9.4 Magnesium Level 2.3 Total Bilirubin 0.7 Aspartate Amino Transf 18 (AST/SGOT) Alanine Aminotransferase 14 (ALT/SGPT) Alkaline Phosphatase 60 Total Creatine Kinase 30 Troponin I LESS THAN 0.02 Total Protein 7.3 Albumin 3.3 Lipase 117 Urine Color THI Urine Turbidity HAZY Urine pH 5.5 Urine Specific Warren 1.012 Urine Protein NEG Urine Glucose (UA) NEG Urine Ketones NEG Urine Occult Blood MOD Urine Nitrite NEG Urine Bilirubin NEG Urine Urobilinogen LESS THAN 2.0 Urine Leukocyte Esterase MOD Urine RBC Urine WBC 24 Urine Bacteria OCC Urine Hyaline Casts 2 Urine Mucus FEW Microscopic Urinalysis Comment CATH-CULTURE IND Lactic Acid Level 2.1 0.6 Date/Time Procedure Status Source Growth 08/05/16 07:45 Urine Culture Received Urine Catheterized Urine Pending 08/05/16 06:30 Aerobic Blood Culture Received Blood Peripheral Pending 08/05/16 06:30 Anaerobic Blood Culture Received Blood Peripheral Pending Result Diagram: 08/05/1663908/05/16639 Imaging Last 72 hours Impressions Chest X-Ray 08/05/16631 Signed Impressions: Service Date/Time: Friday, August 05, 2016 07:11 - CONCLUSION: 1. Cardiomegaly with previous CABG. 2. Minimal left basilar density likely atelectasis or minimal infiltrate. Triston Guadarrama MD Abdomen/Pelvis CT 08/05/1632 Signed Impressions: Service Date/Time: Friday, August 05, 2016 06:43 - CONCLUSION: 1. Distended urinary bladder. 2. Bilateral renal low-density likely related to cyst. 3. Diverticulosis without diverticulitis. Triston Guadarrama MD Assessment and Plan Problem List: (1) Urinary retention ICD Code: R33.9 Status: Acute (2) BPH (benign prostatic hypertrophy) ICD Code: N40.0 Status: Chronic Assessment and Plan -Attempted catheter placement, unsuccessful with resistance noted at the mid anterior urethra, unable to pass a 12Fr catheter -Filiform and followers were then used to dilate the urethra up to 20Fr -A 16Fr [place] catheter was then place over a wire successfully with clear urine return -Bruno catheter is to remain in place until follow-up with Urology -Follow-up with Urology in clinic after discharge -Please call with questions Problem Qualifiers (1) BPH (benign prostatic hypertrophy): Qualified Code: N40.0 - Benign prostatic hyperplasia, presence of lower urinary tract symptoms unspecified, unspecified morphology Calin Altamirano MD Aug 05, 2016 19:39
[2016-08-05] MEDS: SODIUM CHLORIDE 0.9% FLUSH 5 ML FLUSH FLUSH SCH (20:53)
[2016-08-05] MEDS: FAMOTIDINE 20 MG TAB PO SCH (20:55)
[2016-08-05] MEDS: DOCUSATE SODIUM 50 MG/SENNA 8.6 MG TAB PO SCH (20:55)
[2016-08-05] MEDS ORDERED: RIVASTIGMINE 4.6 MG/24 HOUR PATCH T-DERMAL SCH (21:00)
[2016-08-05] MEDS ORDERED: RANITIDINE HCL 150 MG TAB PO SCH (21:00)
[2016-08-05] MEDS ORDERED: ATORVASTATIN 20 MG TAB PO SCH (21:00)
[2016-08-05] MEDS: OXYBUTYNIN CHLORIDE 5 MG TAB PO SCH (23:55)
[2016-08-06] VITALS: BP 108/56; PULSE 60; RESP 18; TEMP 98.7; O2SAT 95
[2016-08-06 04:00] VITALS: BP 115/58; PULSE 60; RESP 18; TEMP 97.9; O2SAT 94
[2016-08-06] MEDS: LACTIC ACID (AMMONIUM LACTATE) 12% LOTION 225 GM BTL TOPICAL SCH ×2 (04:04→09:22)
[2016-08-06 08:00] VITALS: BP 114/53; PULSE 100; RESP 20; TEMP 98.6; O2SAT 98
--- NOTE | 2016-08-06 08:37 | EKG ---
Date Performed: 08/05/2016 Time Performed: 06:58:27 PTAGE: 71 years EKG: ELECTRONIC ATRIAL PACEMAKER ELECTRONIC VENTRICULAR PACEMAKER ABNORMAL RHYTHM ECG INTERPRETA TION BASED ON A DEFAULT AGE OF 40 YEARS PREVIOUS TRACING : 09/02/2011 08.09 Compared to prior tracing no significant change DOCTOR: Sarath Bolden Interpretating Date/Time 08/06/2016 08:35:34
[2016-08-06] MEDS ORDERED: FERROUS SULFATE 325 MG (65 MG ELEMENTAL IRON) TAB PO SCH (09:00)
[2016-08-06] MEDS ORDERED: RIVAROXABAN 10 MG TAB PO SCH (09:00)
[2016-08-06] MEDS ORDERED: BUMETANIDE 1 MG TAB PO SCH (09:00)
[2016-08-06] MEDS ORDERED: ESCITALOPRAM OXALATE 10 MG TAB PO SCH (09:00)
[2016-08-06] MEDS ORDERED: TAMSULOSIN HCL 0.4 MG CAP PO SCH (09:00)
[2016-08-06] MEDS ORDERED: GENTAMICIN SULFATE 0.1% OINT 15 GM TUBE TOP SCH (09:00)
[2016-08-06] MEDS ORDERED: FENOFIBRATE 145 MG TAB PO SCH (09:00)
[2016-08-06] MEDS ORDERED: METOPROLOL SUCCINATE 50 MG EXTENDED RELEASE TAB PO SCH (09:00)
[2016-08-06] MEDS: SODIUM CHLORIDE 0.9% FLUSH 5 ML FLUSH FLUSH SCH (09:19)
[2016-08-06 09:20] LABS: BICARBONATE 21.2 MEQ/L (21.0-32.0); POTASSIUM 4.8 MEQ/L (3.5-5.1)
[2016-08-06] MEDS: OXYBUTYNIN CHLORIDE 5 MG TAB PO SCH (09:20)
[2016-08-06] MEDS: DOCUSATE SODIUM 50 MG/SENNA 8.6 MG TAB PO SCH (09:20)
[2016-08-06] MEDS: FAMOTIDINE 20 MG TAB PO SCH (09:20)
[2016-08-06 09:30] VITALS: PULSE 75
--- NOTE | 2016-08-06 10:58 | HHI.PR ---
Subjective Remarks As per patient he couldn't sleep because of Mccann's and vessels No other complaint Breathing better No pain Usually use 3-4 L of oxygen at car to ensure Review of system for 10 point system otherwise unremarkable Objective Objective Results - Vital Signs Date Time Temp Pulse Resp B/P Pulse Ox O2 Delivery O2 Flow Rate FiO2 08/06/16 08:00 98.6 100 20 114/53 98 08/06/16 04:00 97.9 60 18 115/58 94 08/06/16 00:00 98.7 60 18 108/56 95 08/05/16 20:00 74 08/05/16 19:41 99.5 100 18 129/63 96 08/05/16 18:20 72 08/05/16 15:00 98.3 97 22 121/59 97 08/05/16 14:33 97.8 68 18 123/88 97 Nasal Cannula 3 08/05/16 13:06 72 18 126/67 98 Nasal Cannula 3 08/05/16 11:59 98.0 72 18 120/68 97 Nasal Cannula 3 I/O 08/05/16 08/05/16 08/05/16 08/06/16 08/06/16 08/06/16 07:00 15:00 23:00 07:00 15:00 23:00 Intake Total 602 ml 240 ml Output Total 300 ml 300 ml 450 ml Balance -300 ml 302 ml -210 ml Intake Oral 240 ml 240 ml IV Total 362 ml Output Urine Total 300 ml 300 ml 450 ml # Voids 1 1 # Bowel Movements 0 0 0 Result Diagram: 08/05/16 0640 08/06/16 0830 Imaging Last Impressions Chest X-Ray 08/05/1632 Signed Impressions: Service Date/Time: Friday, August 05, 2016 07:11 - CONCLUSION: 1. Cardiomegaly with previous CABG. 2. Minimal left basilar density likely atelectasis or minimal infiltrate. Triston Guadarrama MD Abdomen/Pelvis CT 08/05/1632 Signed Impressions: Service Date/Time: Friday, August 05, 2016 06:43 - CONCLUSION: 1. Distended urinary bladder. 2. Bilateral renal low-density likely related to cyst. 3. Diverticulosis without diverticulitis. Triston Guadarrama MD Other Results Laboratory Tests Test 08/05/16 08/06/16 15:36 08:30 Lactic Acid Level 0.6 Sodium Level 140 Potassium Level 4.8 Chloride Level 108 Carbon Dioxide Level 21.2 Anion Gap 11 Blood Urea Nitrogen 31 Creatinine 1.28 Estimat Glomerular Filtration 55 Rate Random Glucose 77 Calcium Level 8.8 Date/Time Procedure Status Source Growth 08/05/16 07:45 Urine Culture Received Urine Catheterized Urine Pending 08/05/16 06:30 Aerobic Blood Culture Received Blood Peripheral Pending 08/05/16 06:30 Anaerobic Blood Culture Received Blood Peripheral Pending Physical Exam Physical Exam GENERAL: This is a well-nourished, well-developed patient, in no apparent distress. SKIN: No rashes, ecchymoses or lesions. Cool and dry. HEAD: Atraumatic. Normocephalic. No temporal or scalp tenderness. EYES: Pupils equal round and reactive. Extraocular motions intact. No scleral icterus. No injection or drainage. ENT: Nose without bleeding, purulent drainage or septal hematoma. Throat without erythema, tonsillar hypertrophy or exudate. Uvula midline. Airway patent. NECK: Trachea midline. No JVD or lymphadenopathy. Supple, nontender, no meningeal signs. CARDIOVASCULAR: Irregular rate and rhythm without murmurs, gallops, or rubs. RESPIRATORY: Clear to auscultation. Breath sounds equal bilaterally. No wheezes , rales, or rhonchi. GASTROINTESTINAL: Abdomen soft, non-tender, nondistended. No hepato-splenomegaly , or palpable masses. No guarding. MUSCULOSKELETAL: Extremities without clubbing, cyanosis. Both legs with chronic venous discoloration, no edema, pedal pulses +1 bilat. No joint tenderness, effusion, or edema noted. No calf tenderness. Negative Homans sign bilaterally. NEUROLOGICAL:Awake, oriented x 4, grossly normal. No focal deficits. A/P Assessment and Plan (1) Urinary retention (2) Hematuria (3) Acute on chronic renal failure (4) Acute urinary obstruction (5) BPH (benign prostatic hypertrophy) (6) CAD (coronary artery disease) (7) Hyperlipidemia (8) Restless leg syndrome (9) GERD (gastroesophageal reflux disease) (10) HTN (hypertension) (11) MICHAEL (obstructive sleep apnea) (12) Venous stasis ulcer (13) H/O heart artery stent (14) Hx of cardiac pacemaker (15) HX AICD (16) Cardiomyopathy Plan 71-year-old male with history of urinary retention, recent indwelling catheter in UTI. Presented to emergency room with increasing pelvic pain, hematuria, difficulty voiding. Was found with urinary retention, Bustamante catheter was attempted. Patient was able to void without further intervention Urinary retention, recurrent Urology consultation and help appreciated. Status post dilation of urethra with placement of catheter Good urine output Recurring UTI, recent catheterization, with lactic acidosis -We will start Rocephin 1 g IV daily We'll send with by mouth antibiotic. Written on 3 tolerate to follow urine culture Acute on chronic renal injury secondary to obstructive uropathy -Continue with cautious hydration, normal saline at 42 an hour Follow BMP showing better BUN/creatinine -Continue with tamsulosin and oxybutynin Chronic CHF, stable Monitor for signs and symptoms of fluid overload Bumex -Discontinue History coronary artery disease, cardiomyopathy, pacemaker, AICD Continue with home meds Venous stasis -Continue with [place] wraps to both legs -Elevate legs -Continue with diuretics And fibrillation, well controlled Continue with beta blockers -Continue with Xarelto Chronic anemia Continue with iron replacement Continue with Xarelto for DVT prophylaxis Pepcid for GI prophylaxis Plan of care has been discussed with the patient and registered nurse. Plan to discharge him today Roger Dickerson MD Aug 06, 2016 10:58
[2016-08-06] MEDS ORDERED: HYDR-3583 PO (11:07)
[2016-08-06] MEDS ORDERED: CEFT500T3 PO (11:07)
[2016-08-06] MEDS ORDERED: ALPR.25 PO (11:07)
--- NOTE | 2016-08-06 11:12 | HHI.DS ---
Discharge Summary Admission Date Aug 05, 2016 at 08:04 Admitting Diagnosis acute on chronic renal failure, urinary retention, hematuria (1) Urinary retention Diagnosis: Principal (2) Hematuria Diagnosis: Principal (3) Acute on chronic renal failure Diagnosis: Principal (4) Acute urinary obstruction Diagnosis: Principal (5) BPH (benign prostatic hypertrophy) Diagnosis: Principal (6) CAD (coronary artery disease) Diagnosis: Principal (7) Hyperlipidemia Diagnosis: Principal (8) Restless leg syndrome Diagnosis: Principal (9) GERD (gastroesophageal reflux disease) Diagnosis: Principal (10) HTN (hypertension) Diagnosis: Principal (11) MICHAEL (obstructive sleep apnea) Diagnosis: Principal (12) Venous stasis ulcer Diagnosis: Principal (13) H/O heart artery stent Diagnosis: Principal (14) Hx of cardiac pacemaker Diagnosis: Principal (15) HX AICD Diagnosis: Principal (16) Cardiomyopathy Diagnosis: Principal Brief History This is a pleasant 71-year-old gentleman with a past medical history which includes hypertension chronic diastolic heart failure status post AICD, hyperlipidemia, atrial fibrillation, anxiety, depression, diet-controlled diabetes, obesity, obstructive sleep apnea, venous stasis bilateral lower extremities, restless leg syndrome, GERD, frequent falls, urinary retention requiring bruno insertion, acute renal injury. Patient presented to the emergency room from [facility], with complaints of difficulty urinating, pelvic pain, hematuria. Indicates this has been going on for approximately a week. Patient had a Bruno catheter inserted approximately a month ago for urinary retention which was eventually removed. He was also being treated for UTI. Bruno was eventually removed, however he had trouble initiating urinary stream, only voiding small amounts, he's noted increased pelvic pain. At the [place] [facility], they have been doing intermittent catheterization. staff attempted to insert bruno catheter, approximately 5 times, which was unsuccessful. Patient was sent for further evaluation. In the emergency room, patient was evaluated, laboratory workup was completed. CBC was remarkable for hemoglobin 9.7, hematocrit 28.3. He was noted in acute on chronic renal injury, with BUNs of 46 and creatinine of 2.19. Lactic acid was 2.1 Urinalysis was positive for leukocyte esterase, hematuria, bacteriuria. Abdomen and pelvis CT showed distended urinary bladder, bilateral renal low-density likely related cyst and diverticulosis without diverticulitis. Chest x-ray did not reveal any acute findings. Multiple attempts were made to place a catheter, it was difficult to advance. Dr. Altamirano was called however pt. was able to urinate on his own a significant amount. Patient indicated feeling better. Dr. Altamirano did dilate urethra and Bruno catheter was put in. Now patient is making good urine. Patient is on IV antibiotic. Plan to discharge him back to his facility on diuretics as well. Discussed with RN. Discussed with patient. CBC/BMP: 08/05/16 0640 08/06/16 0830 Significant Findings Laboratory Tests Test 08/05/16 08/05/16 08/06/16 06:40 07:45 08:30 Red Blood Count 2.94 MIL/MM3 (4.50-5.90) Hemoglobin 9.7 GM/DL (13.0-17.0) Hematocrit 28.3 % (39.0-51.0) Neutrophils (%) (Auto) 76.3 % (16.0-70.0) Monocytes (%) (Auto) 9.9 % (0.0-8.0) Lymphocytes # (Auto) 0.8 TH/MM3 (1.0-4.8) Prothrombin Time 13.4 SEC (9.8-11.6) Activated Partial 31.1 SEC Thromboplast Time (24.3-30.1) Sodium Level 133 MEQ/L (136-145) Chloride Level 97 MEQ/L 108 MEQ/L (98-107) (98-107) Blood Urea Nitrogen 46 MG/DL (7-18) 31 MG/DL (7-18) Creatinine 2.19 MG/DL (0.60-1.30) Estimat Glomerular Filtration 30 ML/MIN (>89) 55 ML/MIN (>89) Rate Total Creatine Kinase 30 U/L (39-308) Troponin I LESS THAN 0.02 NG/ML (0.02-0.05) Albumin 3.3 GM/DL (3.4-5.0) Urine Color THI (YELLW/STRAW) Urine Turbidity HAZY (CLEAR) Urine Occult Blood MOD (NEG) Urine Leukocyte Esterase MOD (NEG) Urine WBC 24 /hpf (0-5) Urine Bacteria OCC /hpf (NONE) Urine Mucus FEW /lpf (OCC) Lactic Acid Level 2.1 mmol/L (0.4-2.0) Pt Condition on Discharge: Good Discharge Disposition: Discharge to SNF Discharge Instructions DIET: Follow Instructions for: Heart Healthy Diet Activities you can perform: Weight Bearing as Mely Follow up Referrals: PCP Follow-up - 3-5 Days Urology - 2 Weeks with Calin Altamirano MD New Medications: Cefuroxime (Ceftin) 500 Mg Tab 500 MG PO BID Infection #14 Ref 0 TAB Continued Medications: Acetaminophen (Acetaminophen) 325 Mg Tab 650 MG PO Q4-6H PRN PAIN/FEVER Ref 0 TAB Alprazolam (Xanax) 0.25 Mg Tab 0.25 MG PO Q8H PRN ANXIETY #20 Ref 0 TAB (This prescription has been renewed) Atorvastatin (Atorvastatin) 20 Mg Tab 20 MG PO HS Cholesterol Management #30 Ref 0 TAB Benzonatate (Tessalon Perles) 100 Mg Cap 200 MG PO TID PRN COUGH Ref 0 CAP Bisacodyl Supp (Dulcolax Supp) 10 Mg Supp 10 MG MS DAILY GIVE IF NO RESULTS 1 DAY AFTER MILK OF MAGNESIA PRN CONSTIPATION #12 Ref 0 SUPP Bumetanide (Bumex) 2 Mg Tab 2 MG PO DAILY Ref 0 TAB Escitalopram (Escitalopram) 10 Mg Tab 10 MG PO DAILY #30 Ref 0 TAB Fenofibrate (Fenofibrate) 160 Mg Tab 160 MG PO DAILY #30 Ref [address] (Ferrous Sulfate DR) 324 Mg Tabdr 324 MG PO DAILY Nutritional Supplement #30 Ref 0 TAB Gentamicin Topical (Gentamicin Topical) 0.1% Oint 1 APPLIC TOP DAILY Apply to rt foot between 2-3 toes Hydrocodone-Acetaminophen (Hydrocodone-Acetaminophen) 10-325 mg Tab 1 TAB PO Q4H PRN PAIN #21 Ref 0 TAB (This prescription has been renewed) Lactic Acid (Ammonium Lactate) (Ammonium Lactate) 12 % Cre 1 APPLIC TOP BID APPLY TO:Whole body, excluding skin folds and web spaces CRE Losartan (Losartan) 100 Mg Tab 100 MG PO HS Blood Pressure Management #30 Ref 0 TAB Magnesium Citrate Liq (Citroma Liq) 300 Ml Liq 300 ML PO ONCE PRN CONSTIPATION #1 Ref 0 BOTTLE Magnesium Hydroxide Liq (Milk of Magnesia Liq) 400 Mg/5 Ml Susp 30 ML PO DIRECTED PRN IF NO BM IN 3 DAYS #1 Ref 0 BOTTLE Magnesium Oxide (Magox) 400 Mg Tab 400 MG PO DAILY Nutritional Supplement Ref 0 TAB Melatonin (Gnp Melatonin) 3 Mg Tab 6 MG PO HS Insomnia Metoprolol Succinate ER 24 HR (Metoprolol Succinate ER 24 HR) 100 Mg Tab 100 MG PO DAILY #30 Ref 0 TAB Multiple Vitamins W/ Minerals (Multivitamin Adults) 1 Tab 1 TAB PO DAILY Nutritional Supplement Ref 0 TAB Nystatin Topical (Nystatin Topical) 100,000 unit/gm Oint 1 APPLIC TOPICAL Q12HR Infection #15 Ref 0 GM Ondansetron (Zofran) 4 Mg Tab 4 MG PO Q4HR PRN NAUSEA OR VOMITING Ref 0 TAB Oxybutynin (Ditropan) 5 Mg Tab 5 MG PO Q12HR Urinary Symptom Managemen #60 Ref 0 TAB Phenazopyridine (Pyridium) 100 Mg Tab 100 MG PO Q8HR Dysuria Ref 0 TAB Potassium Chloride ER (Potassium Chloride ER) 20 Meq Tab 20 MEQ PO DAILY Electrolyte Replacement #30 Ref 0 TAB Ranitidine (Zantac) 150 Mg Tab 150 MG PO BID Reflux #60 Ref 0 TAB Rivaroxaban (Xarelto) 10 Mg Tab 10 MG PO DAILY Blood Clot Prevention Ref 0 TAB Rivastigmine Patch (Exelon Patch) 4.6 mg/24 hr Patch 1 PATCH T-DERMAL HS Dementia #30 Ref 0 PATCH Ropinirole (Requip) 4 Mg Tab 4 MG PO Q8HR PRN SEVERE PAIN #90 Ref 0 TAB Sennosides-Docusate Sodium (Polly-Colace) 8.6-50 Mg Tab 1 TAB PO BID Constipation #60 Ref 0 TAB Sodium Hypochlorite Topical (Dakins Solution Half Strength Topical) 0.2-0.25 % Soln 1 APPLIC TOPICAL DAILY Apply to rt foot between 2-3 toes Infection Ref 0 ML Sodium Phosphates (Enema Disposable) 1 Chiquis Chiquis 1 APPLIC MS DIRECTED PRN IF NO RESULTS 1 DAY AFTER SUPP Tamsulosin (Flomax) 0.4 Mg Cap 0.4 MG PO DAILY Manage Prostate Problems #30 Ref 0 CAP Discontinued Medications: Furosemide (Lasix) 40 Mg Tab 40 MG PO BID #60 Ref 0 TAB Roger Dickerson MD Aug 06, 2016 11:12
[2016-08-06 12:00] VITALS: BP 138/61; PULSE 62; RESP 20; TEMP 97.9; O2SAT 100
[2016-11-25] MEDS ORDERED: BUME2TAB PO (09:32)
[2016-11-25] MEDS ORDERED: MAGO400T2 PO (09:32)
[2016-11-25] MEDS ORDERED: BENZ1CAP34 PO (09:32)
[2016-11-25] MEDS ORDERED: MULTTAB67 PO (09:32)
[2016-11-25] MEDS ORDERED: DULC10SU3 RECTAL (09:32)
[2016-11-25] MEDS ORDERED: ONDA1TAB16 PO (09:32)
== END 2016-08-06 13:48 | DRG 726 ==
LOC: NEPE 06:14 → NEDA 08:04 → N04A 14:45
PROVIDERS: ADMIT Specialist; ATTEND Specialist
PROC: 0T7D7DZ Dilation of Urethra with Intraluminal Device, Via Natural or Artificial Opening (ICD-10-PCS; principal; 2016-08-05)
DX: N40.1 Benign prostatic hyperplasia with lower urinary tract symptoms (principal); N17.9 Acute kidney failure, unspecified; E87.2 Acidosis; I13.0 Hypertensive heart and chronic kidney disease with heart failure and stage 1 through stage 4 chronic kidney disease, or unspecified chronic kidney disease; I50.32 Chronic diastolic (congestive) heart failure; I48.91 Unspecified atrial fibrillation; E11.22 Type 2 diabetes mellitus with diabetic chronic kidney disease; I42.9 Cardiomyopathy, unspecified; G25.81 Restless legs syndrome; N39.0 Urinary tract infection, site not specified; N13.8 Other obstructive and reflux uropathy; R33.9 Retention of urine, unspecified; I83.009 Varicose veins of unspecified lower extremity with ulcer of unspecified site; N28.1 Cyst of kidney, acquired; E78.00 Pure hypercholesterolemia, unspecified; I25.10 Atherosclerotic heart disease of native coronary artery without angina pectoris; K21.9 Gastro-esophageal reflux disease without esophagitis; K57.90 Diverticulosis of intestine, part unspecified, without perforation or abscess without bleeding; R31.9 Hematuria, unspecified; N18.9 Chronic kidney disease, unspecified; Z95.1 Presence of aortocoronary bypass graft; Z87.891 Personal history of nicotine dependence; Z95.810 Presence of automatic (implantable) cardiac defibrillator; Z87.440 Personal history of urinary (tract) infections; Z79.01 Long term (current) use of anticoagulants; M19.90 Unspecified osteoarthritis, unspecified site; J45.909 Unspecified asthma, uncomplicated; Z95.5 Presence of coronary angioplasty implant and graft; G47.33 Obstructive sleep apnea (adult) (pediatric); E78.5 Hyperlipidemia, unspecified; D64.9 Anemia, unspecified
CPT/HCPCS: 71010; 74176; 80048; 80053; 81001; 82550; 83605; 83690; 83735; 84484; 85025; 85610; 85730; 87040; 87086; 93005; J0696; J7030

== ENCOUNTER 2016-12-07 17:13 | Emergency (ER) | payer MEDICARE, OTHER ==
[~2016-12-07] VITALS: Ht 170.2 cm; Wt 94.1 kg
[~2016-12-07 17:13] MED LIST changes: -ACET325T PO; -ALPR.25 PO; -AMMO12CR4 TOP; +BENZ1CAP34 PO; -BUME1TAB28 PO; +BUME2TAB PO; -CEFT500T3 PO; +CITRSOL4 PO; -CLOT1CRE TOPICAL; +DULC10SU3 PR; +DULC10SU3 RECTAL; -FURO1TAB60 PO; -LEVO750T33 PO; -MAGO400T PO; +MAGO400T2 PO; -MULT1TAB84 PO; +MULTTAB67 PO; +ONDA1TAB16 PO; +OXYB5TAB10 PO; +PERI8.6T PO; +PHEN0.4T PO; +REQU4TAB3 PO; +TAMS5CAP PO; +ZANT150T2 PO
[2016-12-07 17:25] VITALS: BP 151/69; PULSE 68; RESP 16; TEMP 99.2; O2SAT 94
--- NOTE | 2016-12-07 17:30 | PD ---
HPI Chief Complaint: Complaint Time Seen by Provider: 17:30 Travel History International Travel<30 days: No Contact w/Intl Traveler<30days: No Traveled to known affect area: No History of Present Illness HPI 71-year-old male presents to the emergency Department with history of urinary retention. Patient states that he has not had urine output since 6 AM this morning when he self catheter himself. Patient has been seen Dr. Peña, the urologist for question neurogenic bladder versus other etiology. Patient states no history of prostate trouble although he is on Flomax. Patient states intermittent right flank pain for the past few weeks, but no urine output since this morning as stated. He has no fever, chills, nausea, or vomiting. He does have intermittent cramping in the lower abdomen and right flank. He denies bowel issues. His pain is currently 6/10 but it is intermittent and currently at rest is 2/10. Patient has a history of CHF and chronic lower extremity edema. Patient has no known drug allergies. PFSH Past Medical History Hx Anticoagulant Therapy: Yes (XARELTO) Arthritis: Yes Asthma: Yes Atrial Fibrillation: Yes Anxiety: No Depression: No Heart Rhythm Problems: Yes (Tachycardia, Irregular Heartbeat, Atrial Fibrillation) Cancer: No Cardiac Catheterization: Yes Cardiovascular Problems: Yes High Cholesterol: Yes Chemotherapy: No Chest Pain: No Congestive Heart Failure: Yes COPD: No Cerebrovascular Accident: No Coronary Artery Disease: Yes Diabetes: Yes Diminished Hearing: No Endocrine: No Gastrointestinal Disorders: Yes GERD: Yes Genitourinary: Yes (ADMITTED DUE TO URINARY RETENTION, S/P UTI, INFERIOR MEATUS SPLIT) Headaches: No Hiatal Hernia: No Hypertension: Yes Immune Disorder: No Implanted Vascular Access Dvce: Yes Kidney Stones: No Musculoskeletal: Yes Neurologic: Yes (Restless legs syndrome) Psychiatric: No Reproductive: No Respiratory: Yes (R LOBECTOMY) Immunizations Current: Yes Migraines: No Radiation Therapy: No Renal Failure: No Seizures: No Sickle Cell Disease: No Sleep Apnea: Yes Thyroid Disease: Yes ("USED TO TAKE SYNTHROID") Ulcer: No Past Surgical History Abdominal Surgery: Yes (cholecystectomy, Blockage in dudodenal ) AICD: No Arteriovenous Shunt: No Cardiac Surgery: Yes (1989 CABG, PACEMAKER PLACEMENT) Cholecystectomy: Yes Coronary Artery Bypass Graft: Yes (x5) Coronary Stent: Yes (x1) Ear Surgery: No Endocrine Surgery: No Eye Surgery: No Genitourinary Surgery: No Gynecologic Surgery: No Insulin Pump: No Joint Replacement: No Neurologic Surgery: No Oral Surgery: No Pacemaker: Yes ([place] [employer] Model- [id number]) Thoracic Surgery: Yes (RIGHT LOWER LOBECTOMY) Other Surgery: Yes (cabg,pacemaker,r lower lobectomy) Social History Alcohol Use: No Tobacco Use: No (QUIT 30 YRS AGO ) Substance Use: No Allergies-Medications (Allergen,Severity, Reaction): Coded Allergies: No Known Allergies (Unverified , 12/07/16) Reported Meds & Prescriptions Reported Meds & Active Scripts Active Pyridium (Phenazopyridine HCl) 100 Mg Tab 100 Mg PO Q8H PRN Augmentin (Amoxicillin-Clavulanate) 875-125 Mg Tab 1 Tab PO BID Hydrocodone-Acetaminophen 10-325 mg Tab 1 Tab PO Q4H PRN Reported Milk of Magnesia Liq (Magnesium Hydroxide) 400 Mg/5 Ml Susp 30 Ml PO HS Xanax (Alprazolam) 0.25 Mg Tab 0.25 Mg PO Q8H PRN Ondansetron (Ondansetron HCl) 4 Mg Tab 4 Mg PO Q4HR Benzonatate 200 Mg Cap 200 Mg PO TID PRN Multiple Vitamin 1 Tab 1 Tab PO DAILY Magox 400 (Magnesium Oxide) 400 Mg Tablet 400 Mg PO DAILY Bumetanide 2 Mg Tab 2 Mg PO DAILY Flomax (Tamsulosin HCl) 0.4 Mg Cap 0.4 Mg PO DAILY Zantac (Ranitidine HCl) 150 Mg Tab 150 Mg PO BID Requip (Ropinirole) 4 Mg Tab 6 Mg PO Q6HR PRN Citroma Liq (Magnesium Citrate) 300 Ml Liq 300 Ml PO ONCE PRN Dulcolax Supp (Bisacodyl) 10 Mg Supp 10 Mg MI DAILY PRN GIVE IF NO RESULTS 1 DAY AFTER MILK OF MAGNESIA Xarelto (Rivaroxaban) 10 Mg Tab 10 Mg PO DAILY Potassium Chloride ER (Potassium Chloride) 20 Meq Tab 20 Meq PO DAILY Gnp Melatonin (Melatonin) 3 Mg Tab 6 Mg PO HS Ferrous Sulfate DR (Ferrous Sulfate) 324 Mg Tabdr 324 Mg PO DAILY Exelon Patch (Rivastigmine) 4.6 mg/24 hr Patch 1 Patch T-DERMAL HS Escitalopram (Escitalopram Oxalate) 10 Mg Tab 10 Mg PO DAILY Review of Systems Except as stated in HPI: all other systems reviewed are Neg General / Constitutional: No: Fever, Chills Eyes: No: Visual changes HENT: No: Headaches Cardiovascular: No: Chest Pain or Discomfort Respiratory: No: Shortness of Breath Gastrointestinal: Positive: Nausea, No: Vomiting, Diarrhea, Abdominal Pain Genitourinary: Positive: Decreased Urinary Output, Pelvic Pain (treatment and cramping.), Flank Pain, No: Urgency, Frequency, Dysuria, Nocturia, Hematuria, Discharge Musculoskeletal: No: Pain Skin: No Rash Neurologic: No: Weakness Psychiatric: No: Depression Endocrine: No: Polydipsia Hematologic/Lymphatic: No: Easy Bruising Physical Exam Narrative GENERAL: Patient appears in no acute distress. SKIN: Warm and dry. Normal color. Normal turgor. Patient has bilateral lower extremity edema of 2+. Patient has Unna boots applied to both lower extremities for chronic lower extremity nonhealing wounds. These are left in place. HEAD: Atraumatic. Normocephalic. EYES: Pupils equal and round. No scleral icterus. No injection or drainage. ENT: No nasal bleeding or discharge. Mucous membranes pink and moist. NECK: Trachea midline. Supple and nontender. CARDIOVASCULAR: Regular rate and rhythm. RESPIRATORY: No accessory muscle use. Clear to auscultation. Breath sounds equal bilaterally. GASTROINTESTINAL: Abdomen soft, lower suprapubic tenderness, nondistended. Hepatic and splenic margins not palpable. Patient has mild right-sided flank tenderness with percussion. MUSCULOSKELETAL: Extremities without clubbing, cyanosis, or edema. No obvious deformities. NEUROLOGICAL: Awake and alert. No obvious cranial nerve deficits. Motor grossly within normal limits. Five out of 5 muscle strength in the arms and legs. Normal speech. PSYCHIATRIC: Appropriate mood and affect; insight and judgment normal. Data Data Last Documented VS Vital Signs Date Time Temp Pulse Resp B/P Pulse Ox O2 Delivery O2 Flow Rate FiO2 12/07/16 19:19 61 16 12/07/16 19:19 176/77 96 Room Air 12/07/16 17:25 99.2 Orders Complete Blood Count With Diff (12/07/16 17:35) Comprehensive Metabolic Panel (12/07/16 17:35) Urinalysis - C+S If Indicated (12/07/16 17:35) Ct Abd/Pel W/O Iv Contrast (12/07/16 17:35) Iv Access Insert/Monitor (12/07/16 17:35) Ketorolac Inj (Toradol Inj) (12/07/16 17:45) Ondansetron Inj (Zofran Inj) (12/07/16 17:45) Sodium Chloride 0.9% Flush (Ns Flush) (12/07/16 17:45) Urinary Catheter Management JIMENA.Q8H (12/07/16 17:35) Ropinirole Hcl (Requip) (12/07/16 18:15) Urine Culture (12/07/16 18:00) Labs Laboratory Tests Test 12/07/16 18:00 White Blood Count 8.2 TH/MM3 Red Blood Count 3.64 MIL/MM3 Hemoglobin 11.5 GM/DL Hematocrit 35.1 % Mean Corpuscular Volume 96.5 FL Mean Corpuscular Hemoglobin 31.7 PG Mean Corpuscular Hemoglobin 32.8 % Concent Red Cell Distribution Width 13.7 % Platelet Count 178 TH/MM3 Mean Platelet Volume 9.3 FL Neutrophils (%) (Auto) 76.9 % Lymphocytes (%) (Auto) 12.6 % Monocytes (%) (Auto) 9.9 % Eosinophils (%) (Auto) 0.0 % Basophils (%) (Auto) 0.6 % Neutrophils # (Auto) 6.3 TH/MM3 Lymphocytes # (Auto) 1.0 TH/MM3 Monocytes # (Auto) 0.8 TH/MM3 Eosinophils # (Auto) 0.0 TH/MM3 Basophils # (Auto) 0.0 TH/MM3 CBC Comment DIFF FINAL Differential Comment Urine Color YELLOW Urine Turbidity HAZY Urine pH 5.0 Urine Specific [place] 1.014 Urine Protein TRACE mg/dL Urine Glucose (UA) NEG mg/dL Urine Ketones NEG mg/dL Urine Occult Blood LARGE Urine Nitrite NEG Urine Bilirubin NEG Urine Urobilinogen LESS THAN 2.0 MG/DL Urine Leukocyte Esterase MOD Urine RBC 148 /hpf Urine WBC 62 /hpf Urine Mucus FEW /lpf Microscopic Urinalysis Comment CULTURE INDICATED Sodium Level 136 MEQ/L Potassium Level 4.9 MEQ/L Chloride Level 103 MEQ/L Carbon Dioxide Level 27.2 MEQ/L Anion Gap 6 MEQ/L Blood Urea Nitrogen 31 MG/DL Creatinine 1.42 MG/DL Estimat Glomerular Filtration 49 ML/MIN Rate Random Glucose 82 MG/DL Calcium Level 9.9 MG/DL Total Bilirubin 0.3 MG/DL Aspartate Amino Transf 19 U/L (AST/SGOT) Alanine Aminotransferase 20 U/L (ALT/SGPT) Alkaline Phosphatase 99 U/L Total Protein 7.9 GM/DL Albumin 3.7 GM/DL [facility] Medical Decision Making Medical Screen Exam Complete: Yes Emergency Medical Condition: Yes Medical Record Reviewed: Yes Differential Diagnosis Kidney stone. Renal colic. Acute urinary obstruction. Prostatitis. Urinary stricture. Neurogenic bladder. Narrative Course Patient is medically stable at time of exam. Labs ordered including CBC, CMP, urinalysis. Bustamante coud catheter 18 [place] is placed by nursing staff. CT the abdomen and pelvis is ordered without contrast to evaluate for pyelonephritis or renal stones. Patient is given is usual dose of Requip 6mg po for c/o restless legs. CBC is unremarkable except for his chronic mild anemia, without leukocytosis. 1900 hours care of the patient is turned over to Channing Aldana PA-C. CT results and Labs Pending. Final Disposition will be determined by him. Scripts Phenazopyridine (Pyridium)100 Mg Vpt494 Mg PO Q8H PRN (DYSURIA) #12 TAB Prov:Dilip Grady MD 12/07/16 Amoxicillin-Clavulanate (Augmentin)875-125 Mg Tab1 Tab PO BID #20 TAB Prov:Dilip Grady MD 12/07/16 Condition: Stable Skyler Barillas Dec 07, 2016 17:30
[2016-12-07 17:34] VITALS: BP 155/75; PULSE 65; RESP 18; O2SAT 96
[2016-12-07] MEDS ORDERED: SODIUM CHLORIDE 0.9% FLUSH 10 ML FLUSH IVF PRN (17:45)
[2016-12-07] MEDS ORDERED: ONDANSETRON HCL 4 MG/2 ML VIAL IVP ONE (17:45)
[2016-12-07] MEDS ORDERED: KETOROLAC TROMETHAMINE 30 MG/ML (IVP) VIAL IVP ONE (17:45)
[2016-12-07 18:28] LABS: AUTOMATED NEUTROPHIL # 6.3 TH/MM3 (1.8-7.7); BASOPHIL % 0.6 % (0.0-2.0); HEMATOCRIT 35.1 % (39.0-51.0); HEMO FLAGS DIFF FINAL; LYMPH % 12.6 % (9.0-44.0); MEAN CELL VOLUME 96.5 FL (80.0-100.0); MEAN CORPUSCULAR HEMOGLOBIN 31.7 PG (27.0-34.0); MEAN CORPUSCULAR HGB CONC 32.8 % (32.0-36.0); MONO % 9.9 % (0.0-8.0); NEUT % 76.9 % (16.0-70.0); PLATELET COUNT 178 TH/MM3 (150-450); RED BLOOD COUNT 3.64 MIL/MM3 (4.50-5.90); RED CELL DISTRIBUTION WIDTH 13.7 % (11.6-17.2); WHITE BLOOD COUNT 8.2 TH/MM3 (4.0-11.0)
--- NOTE | 2016-12-07 18:49 | RADRPT ---
EXAM DATE/TIME: 12/07/2016 18:24 [facility] COMPARISON: CHEST SINGLE AP, March 20, 2015, 16:54. CT ABDOMEN & PELVIS W/O CONTRAST, August 05, 2016, 6:4 3. INDICATIONS : Right flank pain for two days, difficulty urinating. ORAL CONTRAST: No oral contrast ingested. RADIATION DOSE: 13.88 CTDIvol (mGy) MEDICAL HISTORY : Hypertension. Gastroesophageal reflux disease. Cardiovascular diseaseEnlarged prostate. SURGICAL HISTORY : CABG Cholecystectomy.Pacemaker.Right lobectomy. ENCOUNTER: Initial ACUITY: 2 days PAIN SCALE: 4/10 LOCATION: Right flank TECHNIQUE: Volumetric scanning of the abdomen and pelvis was performed. Using automated exposure control and ad justment of the mA and/or kV according to patient size, radiation dose was kept as low as reasonably achievable to obtain optimal diagnostic quality images. FINDINGS: LOWER LUNGS: Trace bibasilar atelectasis LIVER: Homogeneous density without lesion. There is no dilation of the biliary tree. Previous cholecystecto my. SPLEEN: Normal size without lesion. PANCREAS: Within normal limits. KIDNEYS: Scattered hypodensities, most fairly convincing persists. There is an intermediate attenuation area m easuring 29 mm of the left upper pole and a vague mixed attenuation area measuring 27 mm of the right mid zone. No renal or ureteral calculus on either side. No hydronephrosis or hydroureter. Urinary bl adder is decompressed with a Bustamante. ADRENAL GLANDS: Within normal limits. VASCULAR: Tortuous and atherosclerotic aorta. No aneurysm. BOWEL/MESENTERY: The stomach, small bowel, and colon demonstrate no acute abnormality. There is no free intraperitone al air or fluid. Normal appendix. ABDOMINAL WALL: Within normal limits. RETROPERITONEUM: There is no lymphadenopathy. BLADDER: No wall thickening or mass. REPRODUCTIVE: Within normal limits. INGUINAL: There is no lymphadenopathy or hernia. MUSCULOSKELETAL: No acute bony abnormality demonstrated. CONCLUSION: 1. No stones or obstructive uropathy of either kidney. 2. Indeterminate mid zone mass of the right kidney and questionable mass versus lobulation of the upp er pole the left kidney. Outpatient contrast enhanced study recommended. Patient has a cardiac pacer. 3. Atherosclerosis of the abdominal aorta. No aneurysm. 4. Trace atelectasis of the visualized lung bases. 5. Grossly unremarkable urinary bladder. Bustamante catheter present. Isaias Burgos MD on December 07, 2016 at 18:41 Board Certified Radiologist. This report was verified electronically.
[2016-12-07 18:58] LABS: ANION GAP 6 MEQ/L (5-15); AST (GOT) 19 U/L (15-37); BICARBONATE 27.2 MEQ/L (21.0-32.0); BLOOD UREA NITROGEN 31 MG/DL (7-18); CHLORIDE 103 MEQ/L (98-107); GLOMERULAR FILTRATION RATE 49 ML/MIN (>89); POTASSIUM 4.9 MEQ/L (3.5-5.1); SODIUM (NA) 136 MEQ/L (136-145)
[2016-12-07 18:59] LABS: BLOOD, URINE LARGE (NEG); COMMENT (UR) CULTURE INDICATED; CULTURE IF INDICATED CULTURE INDICATED; GLUCOSE,URINE NEG (NEG); KETONE, URINE NEG (NEG); MUCUS URINE FEW /lpf (OCC); NITRITE,URINE NEG (NEG); URINE COLOR YELLOW (YELLW/STRAW)
[2016-12-07 19:01] LABS: ALKALINE PHOSPHATASE 99 U/L (45-117); ALT (GPT) 20 U/L (12-78); TOTAL BILIRUBIN ADULT 0.3 MG/DL (0.2-1.0)
[2016-12-07 19:19] VITALS: BP 176/77; PULSE 61; RESP 18; O2SAT 96
--- NOTE | 2016-12-07 19:37 | PD ---
Physical Exam Date Seen by Provider: Dec 07, 2016 Time Seen by Provider: 19:31 Narrative GENERAL: This is a well-nourished, well-developed patient, in no apparent distress. SKIN: No rashes, ecchymoses or lesions. Warm and dry. HEAD: Atraumatic. Normocephalic. EYES: PERRL, EOMI, no discharge or injection. No scleral icterus. EARS: Clear NOSE: Nasal turbinates appear normal. THROAT: Mucosa pink and moist. Airway patent. NECK: Trachea midline. supple, moves head freely. LUNGS: Clear to auscultation. CV: Regular in rhythm. ABDOMEN: Soft nontender. No guarding or rebound. Data Data Last Documented VS Vital Signs Date Time Temp Pulse Resp B/P Pulse Ox O2 Delivery O2 Flow Rate FiO2 12/07/16 19:19 61 16 12/07/16 19:19 176/77 96 Room Air 12/07/16 17:25 99.2 Orders Complete Blood Count With Diff (12/07/16 17:35) Comprehensive Metabolic Panel (12/07/16 17:35) Urinalysis - C+S If Indicated (12/07/16 17:35) Ct Abd/Pel W/O Iv Contrast (12/07/16 17:35) Iv Access Insert/Monitor (12/07/16 17:35) Ketorolac Inj (Toradol Inj) (12/07/16 17:45) Ondansetron Inj (Zofran Inj) (12/07/16 17:45) Sodium Chloride 0.9% Flush (Ns Flush) (12/07/16 17:45) Urinary Catheter Management JIMENA.Q8H (12/07/16 17:35) Ropinirole Hcl (Requip) (12/07/16 18:15) Urine Culture (12/07/16 18:00) Labs Laboratory Tests Test 12/07/16 18:00 White Blood Count 8.2 TH/MM3 Red Blood Count 3.64 MIL/MM3 Hemoglobin 11.5 GM/DL Hematocrit 35.1 % Mean Corpuscular Volume 96.5 FL Mean Corpuscular Hemoglobin 31.7 PG Mean Corpuscular Hemoglobin 32.8 % Concent Red Cell Distribution Width 13.7 % Platelet Count 178 TH/MM3 Mean Platelet Volume 9.3 FL Neutrophils (%) (Auto) 76.9 % Lymphocytes (%) (Auto) 12.6 % Monocytes (%) (Auto) 9.9 % Eosinophils (%) (Auto) 0.0 % Basophils (%) (Auto) 0.6 % Neutrophils # (Auto) 6.3 TH/MM3 Lymphocytes # (Auto) 1.0 TH/MM3 Monocytes # (Auto) 0.8 TH/MM3 Eosinophils # (Auto) 0.0 TH/MM3 Basophils # (Auto) 0.0 TH/MM3 CBC Comment DIFF FINAL Differential Comment Urine Color YELLOW Urine Turbidity HAZY Urine pH 5.0 Urine Specific [place] 1.014 Urine Protein TRACE mg/dL Urine Glucose (UA) NEG mg/dL Urine Ketones NEG mg/dL Urine Occult Blood LARGE Urine Nitrite NEG Urine Bilirubin NEG Urine Urobilinogen LESS THAN 2.0 MG/DL Urine Leukocyte Esterase MOD Urine RBC 148 /hpf Urine WBC 62 /hpf Urine Mucus FEW /lpf Microscopic Urinalysis Comment CULTURE INDICATED Sodium Level 136 MEQ/L Potassium Level 4.9 MEQ/L Chloride Level 103 MEQ/L Carbon Dioxide Level 27.2 MEQ/L Anion Gap 6 MEQ/L Blood Urea Nitrogen 31 MG/DL Creatinine 1.42 MG/DL Estimat Glomerular Filtration 49 ML/MIN Rate Random Glucose 82 MG/DL Calcium Level 9.9 MG/DL Total Bilirubin 0.3 MG/DL Aspartate Amino Transf 19 U/L (AST/SGOT) Alanine Aminotransferase 20 U/L (ALT/SGPT) Alkaline Phosphatase 99 U/L Total Protein 7.9 GM/DL Albumin 3.7 GM/DL [facility] Medical Record Reviewed: Yes Supervised Visit with RACHELL: No Interpretation(s) CBC & BMP Diagram 12/07/16 18:00 Last 24 hours Impressions Abdomen/Pelvis CT 12/07/16 [id number] Signed Impressions: Service Date/Time: Wednesday, December 07, 2016 18:24 - CONCLUSION: 1. No stones or obstructive uropathy of either kidney. 2. Indeterminate mid zone mass of the right kidney and questionable mass versus lobulation of the upper pole the left kidney. Outpatient contrast enhanced study recommended. Patient has a cardiac pacer. 3. Atherosclerosis of the abdominal aorta. No aneurysm. 4. Trace atelectasis of the visualized lung bases. 5. Grossly unremarkable urinary bladder. Bustamante catheter present. Isaias Burgos MD Differential Diagnosis Differential diagnoses: Acute urinary retention, obstructive uropathy, UTI, pyelonephritis Narrative Course IV access is obtained. Routine laboratory tests sent for analysis. Bustamante catheter inserted using a coud catheter. Patient has had a total of approximately 5-600 cc of urine. There is numerous RBCs and WBCs but no bacteria. The patient's pain is much improved. Review of the CAT scan shows some lobular densities in the kidneys but no obvious obstructive uropathy. Recommend outpatient CT with contrast. Plan to send patient home with Bustamante, Augmentin, and Pyridium. Follow-up with Dr. Peña first part of this week. Case has been discussed with Dr. Peña. He agrees with the treatment plan of follow-up. He has requested that he increase his Flomax to twice a day. Diagnosis Primary Impression: Acute urinary obstruction Patient Instructions: General Instructions Additional Instruction: Rest. Increase fluids. Augmentin, Pyridium. Take Flomax twice daily. Call Dr. Peña Friday for an appointment. Return to the ER for emergencies. Med/Other Pt SpecificInfo: Prescription(s) given Disposition: DISCHARGE HOME Condition: Stable Sami Calle Dec 07, 2016 19:37
[2016-12-07] MEDS ORDERED: MILKSUS PO (19:46)
[2016-12-07] MEDS ORDERED: ALPR.25 PO (19:46)
[2016-12-07] MEDS ORDERED: AUGM875T3 PO (19:50)
[2016-12-07] MEDS ORDERED: PHEN0.4T PO (19:50)
== END 2016-12-07 22:31 | disposition home or self-care (01) ==
LOC: NEPD 17:13
DX: N13.9 Obstructive and reflux uropathy, unspecified (principal); I70.0 Atherosclerosis of aorta; R60.0 Localized edema; Z95.1 Presence of aortocoronary bypass graft; Z95.0 Presence of cardiac pacemaker; I48.91 Unspecified atrial fibrillation; E78.00 Pure hypercholesterolemia, unspecified; I50.9 Heart failure, unspecified; E11.9 Type 2 diabetes mellitus without complications; K21.9 Gastro-esophageal reflux disease without esophagitis; I10 Essential (primary) hypertension; G47.30 Sleep apnea, unspecified
CPT/HCPCS: 51702; 74176; 80053; 81001; 85025; 86403; 87086; 87186; 96374; 96375; 99285; J1885

== ENCOUNTER 2017-01-02 09:06 | Observation (INO) | payer MEDICARE, OTHER ==
[~2017-01-02] VITALS: Ht 170.2 cm; Wt 99.3 kg
[~2017-01-02 09:06] MED LIST changes: +ALPR.25 PO; +AUGM875T3 PO; -DAKINSHST TOPICAL; -DULC10SU3 RECTAL; -FENO160T PO; -LOSA100T PO; -METO100T9 PO; +MILKSUS PO; -OXYB5TAB10 PO; -PERI8.6T PO
[2017-01-02 09:10] VITALS: BP 133/73; PULSE 71; RESP 18; TEMP 99.5; O2SAT 94
--- NOTE | 2017-01-02 09:29 | PD ---
HPI Chief Complaint: Cardiac Complaint Time Seen by Provider: 09:28 Travel History International Travel<30 days: No Contact w/Intl Traveler<30days: No Traveled to known affect area: No History of Present Illness HPI 71-year-old male came to the emergency room with history of on and off chest pain on the left side for past 1 month. Pain feels like a pressure. No radiation. Patient has significant coronary artery disease history. He spoke with his crystal inspector Dr. Thorne last him to come to the emergency room to be admitted. Currently patient is pain-free. He does have some shortness of breath as well. Patient has history of atrial fibrillation and supposed to be on Xarelto but she was taken off the Xarelto during his dental procedure. He has been off of them for over a week. Vital signs were stable. [facility] Past Medical History Narrative Medical List of his past medical, surgical, social and family history is reviewed from the nursing note. Hx Anticoagulant Therapy: Yes (XARELTO) Arthritis: Yes Asthma: Yes Atrial Fibrillation: Yes Anxiety: No Depression: No Heart Rhythm Problems: Yes (Tachycardia, Irregular Heartbeat, Atrial Fibrillation) Cancer: No Cardiac Catheterization: Yes Cardiovascular Problems: Yes High Cholesterol: Yes Chemotherapy: No Chest Pain: No Congestive Heart Failure: Yes COPD: No Cerebrovascular Accident: No Coronary Artery Disease: Yes Diminished Hearing: No Endocrine: No Gastrointestinal Disorders: Yes GERD: Yes Genitourinary: Yes (ADMITTED DUE TO URINARY RETENTION, S/P UTI, INFERIOR MEATUS SPLIT) Headaches: No Hiatal Hernia: No Hypertension: Yes Immune Disorder: No Implanted Vascular Access Dvce: Yes Kidney Stones: No Musculoskeletal: Yes Neurologic: Yes (Restless legs syndrome) Psychiatric: No Reproductive: No Respiratory: Yes (R LOBECTOMY) Immunizations Current: Yes Migraines: No Radiation Therapy: No Renal Failure: No Seizures: No Sickle Cell Disease: No Sleep Apnea: Yes Thyroid Disease: Yes ("USED TO TAKE SYNTHROID") Ulcer: No Past Surgical History Abdominal Surgery: Yes (cholecystectomy, Blockage in dudodenal ) AICD: No Arteriovenous Shunt: No Cardiac Surgery: Yes (1989 CABG, PACEMAKER PLACEMENT) Cholecystectomy: Yes Coronary Artery Bypass Graft: Yes (x5) Coronary Stent: Yes (x1) Ear Surgery: No Endocrine Surgery: No Eye Surgery: No Genitourinary Surgery: No Gynecologic Surgery: No Insulin Pump: No Joint Replacement: No Neurologic Surgery: No Oral Surgery: No Pacemaker: Yes ([place] [employer] Blue Box Model- [id number]) Thoracic Surgery: Yes (RIGHT LOWER LOBECTOMY) Other Surgery: Yes (cabg,pacemaker,r lower lobectomy) Social History Alcohol Use: No Tobacco Use: No Substance Use: No Allergies-Medications (Allergen,Severity, Reaction): Coded Allergies: *MDRO Multi-Drug Resistant Organism (Verified Adverse Reaction, Unknown, ) 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 Reported Meds & Prescriptions Reported Meds & Active Scripts Active Hydrocodone-Acetaminophen 10-325 mg Tab 1 Tab PO Q4H PRN Reported Milk of Magnesia Liq (Magnesium Hydroxide) 400 Mg/5 Ml Susp 30 Ml PO HS Xanax (Alprazolam) 0.25 Mg Tab 0.25 Mg PO Q8H PRN Multiple Vitamin 1 Tab 1 Tab PO DAILY Bumetanide 2 Mg Tab 2 Mg PO DAILY Flomax (Tamsulosin HCl) 0.4 Mg Cap 0.4 Mg PO DAILY Zantac (Ranitidine HCl) 150 Mg Tab 150 Mg PO BID Requip (Ropinirole) 4 Mg Tab 6 Mg PO Q6HR PRN Citroma Liq (Magnesium Citrate) 300 Ml Liq 300 Ml PO ONCE PRN Dulcolax Supp (Bisacodyl) 10 Mg Supp 10 Mg IN DAILY PRN GIVE IF NO RESULTS 1 DAY AFTER MILK OF MAGNESIA Xarelto (Rivaroxaban) 10 Mg Tab 10 Mg PO DAILY Potassium Chloride ER (Potassium Chloride) 20 Meq Tab 20 Meq PO DAILY Gnp Melatonin (Melatonin) 3 Mg Tab 6 Mg PO HS Ferrous Sulfate DR (Ferrous Sulfate) 324 Mg Tabdr 324 Mg PO DAILY Exelon Patch (Rivastigmine) 4.6 mg/24 hr Patch 1 Patch T-DERMAL HS Escitalopram (Escitalopram Oxalate) 10 Mg Tab 10 Mg PO DAILY Narrative Medication List of his home medications reviewed from the nursing note. Review of Systems Except as stated in HPI: all other systems reviewed are Neg Physical Exam Narrative GENERAL: Awake, alert, no obvious distress SKIN: Focused skin assessment warm/dry. HEAD: Atraumatic. Normocephalic. EYES: Pupils equal and round. No scleral icterus. No injection or drainage. ENT: No nasal bleeding or discharge. Mucous membranes pink and moist. NECK: Trachea midline. No JVD. CARDIOVASCULAR: Regular rate and rhythm. No murmur appreciated. RESPIRATORY: No accessory muscle use. Coarse crackles right lower lobe GASTROINTESTINAL: Abdomen soft, non-tender, nondistended. Hepatic and splenic margins not palpable. MUSCULOSKELETAL: No obvious deformities. No clubbing. No cyanosis. No edema. NEUROLOGICAL: Awake and alert. No obvious cranial nerve deficits. Motor grossly within normal limits. Normal speech. PSYCHIATRIC: Appropriate mood and affect; insight and judgment normal. Data Data Last Documented VS Vital Signs Date Time Temp Pulse Resp B/P Pulse Ox O2 Delivery O2 Flow Rate FiO2 01/02/17 09:40 99 01/02/17 09:40 Nasal Cannula 2 01/02/17 09:40 61 20 146/63 01/02/17 09:10 99.5 Orders Electrocardiogram (01/02/17 09:35) Basic Metabolic Panel (Bmp) (01/02/17 09:35) B-Type Natriuretic Peptide (01/02/17 09:35) Ckmb (Isoenzyme) Profile (01/02/17 09:35) Complete Blood Count With Diff (01/02/17 09:35) Magnesium (Mg) (01/02/17 09:35) Prothrombin Time / Inr (Pt) (01/02/17 09:35) Act Partial Throm Time (Ptt) (01/02/17 09:35) Troponin I (01/02/17 09:35) Chest, Single Ap (01/02/17 09:35) Ecg Monitoring (01/02/17 09:35) Bilateral Bp Monitoring (01/02/17 09:35) Iv Access Insert/Monitor (01/02/17 09:35) Oximetry (01/02/17 09:35) Oxygen Administration (01/02/17 09:35) Sodium Chloride 0.9% Flush (Ns Flush) (01/02/17 09:45) Acetamin-Hydrocod 325-5 Mg (Portia 5-325 (01/02/17 11:00) Admit Order (Ed Use Only) (01/02/17 11:53) Labs Laboratory Tests Test 01/02/17 09:35 White Blood Count 5.7 TH/MM3 Red Blood Count 3.36 MIL/MM3 Hemoglobin 10.8 GM/DL Hematocrit 31.8 % Mean Corpuscular Volume 94.8 FL Mean Corpuscular Hemoglobin 32.3 PG Mean Corpuscular Hemoglobin 34.0 % Concent Red Cell Distribution Width 14.0 % Platelet Count 167 TH/MM3 Mean Platelet Volume 8.5 FL Neutrophils (%) (Auto) 74.8 % Lymphocytes (%) (Auto) 14.6 % Monocytes (%) (Auto) 10.0 % Eosinophils (%) (Auto) 0.0 % Basophils (%) (Auto) 0.6 % Neutrophils # (Auto) 4.3 TH/MM3 Lymphocytes # (Auto) 0.8 TH/MM3 Monocytes # (Auto) 0.6 TH/MM3 Eosinophils # (Auto) 0.0 TH/MM3 Basophils # (Auto) 0.0 TH/MM3 CBC Comment DIFF FINAL Differential Comment Prothrombin Time 11.7 SEC Prothromb Time International 1.1 RATIO Ratio Activated Partial 29.0 SEC Thromboplast Time Sodium Level 138 MEQ/L Potassium Level 4.6 MEQ/L Chloride Level 106 MEQ/L Carbon Dioxide Level 25.9 MEQ/L Anion Gap 6 MEQ/L Blood Urea Nitrogen 21 MG/DL Creatinine 1.01 MG/DL Estimat Glomerular Filtration 72 ML/MIN Rate Random Glucose 118 MG/DL Calcium Level 9.6 MG/DL Magnesium Level 2.1 MG/DL Total Creatine Kinase 50 U/L Troponin I LESS THAN 0.02 NG/ML B-Type Natriuretic Peptide 171 PG/ML MDM Medical Decision Making Medical Screen Exam Complete: Yes Emergency Medical Condition: Yes Medical Record Reviewed: Yes Interpretation(s) Twelve-lead EKG was reviewed by me. Paced rhythm, A. fib. Heart rate of 69 bpm. Differential Diagnosis Congestive heart failure, ACS, non-STEMI Narrative Course 10:54 AM blood test results of back and within acceptable limits. Given his significant coronary artery disease history I would like to admit the patient. He may require a cardiac catheterization depending on what the crystal inspector chooses. I would like to admit him on the medical service. Awaiting for the residents to call back. I was told by the nurse that he currently has started to get chest pain and usually takes hydrocodone at home for them. He would like to have some. I'll order that. 11:54 AM case was discussed with Dr. Beltran from cardiology who would do a catheter on this patient tomorrow. Nothing by mouth after midnight. Procedures EKG Prior to Arrival: No Physician Communication Physician Communication Dr. Beltran Diagnosis Primary Impression: Chest pain Qualified Code: R07.9 - Chest pain, unspecified type Admitting Information Admitting Physician Requests: Admit Freda Hendrix MD Jan 02, 2017 09:29
[2017-01-02 09:40] VITALS: BP 146/63; PULSE 61; RESP 20; O2SAT 99
[2017-01-02] MEDS ORDERED: SODIUM CHLORIDE 0.9% FLUSH 10 ML FLUSH IVF PRN (09:45)
[2017-01-02 09:58] LABS: AUTOMATED NEUTROPHIL # 4.3 TH/MM3 (1.8-7.7); BASOPHIL % 0.6 % (0.0-2.0); HEMATOCRIT 31.8 % (39.0-51.0); HEMO FLAGS DIFF FINAL; LYMPH % 14.6 % (9.0-44.0); LYMPHOCYTE # 0.8 TH/MM3 (1.0-4.8); MEAN CELL VOLUME 94.8 FL (80.0-100.0); MEAN CORPUSCULAR HEMOGLOBIN 32.3 PG (27.0-34.0); NEUT % 74.8 % (16.0-70.0); PLATELET COUNT 167 TH/MM3 (150-450); RED BLOOD COUNT 3.36 MIL/MM3 (4.50-5.90); WHITE BLOOD COUNT 5.7 TH/MM3 (4.0-11.0)
[2017-01-02 10:09] LABS: INTERNATIONAL NORMALIZED RATIO 1.1 RATIO; PROTHROMBIN TIME - PATIENT 11.7 SEC (9.8-11.6)
[2017-01-02 10:20] LABS: ANION GAP 6 MEQ/L (5-15); BICARBONATE 25.9 MEQ/L (21.0-32.0); BLOOD UREA NITROGEN 21 MG/DL (7-18); CHLORIDE 106 MEQ/L (98-107); GLOMERULAR FILTRATION RATE 72 ML/MIN (>89); MAGNESIUM 2.1 MG/DL (1.5-2.5); POTASSIUM 4.6 MEQ/L (3.5-5.1); SODIUM (NA) 138 MEQ/L (136-145)
--- NOTE | 2017-01-02 10:28 | RADRPT ---
EXAM DATE/TIME: 01/02/2017 09:44 [place] COMPARISON: CHEST SINGLE AP, August 05, 2016, 7:11. INDICATIONS : Shortness of breath with chest fullness.CABG 1998, stent 2010, lobectomy 2001, MEDICAL HISTORY : Myocardial infarction. SURGICAL HISTORY : Lobectomy. CABG. Corinary [id number], ENCOUNTER: Initial ACUITY: 1 day PAIN SCORE: 0/10 LOCATION: Bilateral chest FINDINGS: 2 portable frontal views of the chest show mild cardiomegaly. Mild cephalization of flow within the p ulmonary vasculature. No infiltrate or effusion. Pacing device overlies the left chest. A been sterno arminda wires. CONCLUSION: Cardiomegaly without acute infiltrate or effusion. Casey Dickey Jr., MD on January 02, 2017 at 10:21 Board Certified Radiologist. This report was verified electronically.
[2017-01-02 10:30] LABS: CREATINE KINASE 50 U/L (39-308)
[2017-01-02] MEDS ORDERED: ACETAMINOPHEN/HYDROcodone 325 MG/5 MG TAB PO ONE (11:00)
--- NOTE | 2017-01-02 11:20 | EKG ---
Date Performed: 01/02/2017 Time Performed: 09:36:38 PTAGE: 71 years EKG: ELECTRONIC ATRIAL PACEMAKER ELECTRONIC VENTRICULAR PACEMAKER ABNORMAL RHYTHM ECG PREVIOUS TRACING : 08/05/2016 06.58 No change from previous tracing noted. DOCTOR: Kendrick Ibarra Interpretating Date/Time 01/02/2017 11:19:41
[2017-01-02] MEDS ORDERED: ACETAMINOPHEN 500 MG CPLT PO PRN (12:15)
[2017-01-02] MEDS ORDERED: NITROGLYCERIN 0.4 MG SL 25 TABS/BTL SL PRN (12:15)
[2017-01-02] MEDS ORDERED: SODIUM CHLORIDE 0.9% FLUSH 10 ML FLUSH IV FLUSH PRN (12:15)
[2017-01-02 12:41] VITALS: BP 138/72; PULSE 78; RESP 20
--- NOTE | 2017-01-02 13:46 | HHI.HP ---
[facility] Sarath Bob MD Admission Diagnosis chest pain, rule out ACS Diagnoses: (1) Atypical chest pain Chief Complaint: Chest fullness and pressure like Travel History International Travel<30 Days: No Contact w/Intl Traveler <30 Da: No Traveled to Known Affected Are: No History of Present Illness Every 1 year-old male with a history of atrial fibrillation, diastolic CHF, CAD and CABG 5 presented to the ED for evaluation of worsening chest fullness/pressure described as fluttering 2 days however ongoing problem over the past 1 month without any shortness of breath or radiation. Patient was advise by his credit collector to come to the ED today for further evaluation as according to patient the pain lasted over 30 seconds, which failed like his episodes in 2010 which resulted in cardiac stent placement. Patient has a history of A. fib for which he supposedly on Xarelto however has been on this medication over the past 7 days after dental work and complication. Denies any GI bleed. Review of Systems Except as stated in HPI: all other systems reviewed are Neg Past Family Social History Past Medical History CHF-Diastolic A. fib Coronary artery disease Obstructive sleep apnea Hyperlipidemia Urinary retention, has required bruno insertion in the past Frequent UTIs Peripheral edema Venous stasis ulcers-improved Obesity RLS CAD, stents Cardiomyopathy Past Surgical History Cholecystectomy Partial lobectomy secondary to pneumonia scarring CABG 5 Stent placement Tonsillectomy Bowel resection secondary to small bowel obstruction Reported Medications Milk of Magnesia Liq (Magnesium Hydroxide) 400 Mg/5 Ml Susp 30 Ml PO HS Xanax (Alprazolam) 0.25 Mg Tab 0.25 Mg PO Q8H PRN Multiple Vitamin 1 Tab 1 Tab PO DAILY Bumetanide 2 Mg Tab 2 Mg PO DAILY Flomax (Tamsulosin HCl) 0.4 Mg Cap 0.4 Mg PO DAILY Zantac (Ranitidine HCl) 150 Mg Tab 150 Mg PO BID Requip (Ropinirole) 4 Mg Tab 6 Mg PO Q6HR PRN Citroma Liq (Magnesium Citrate) 300 Ml Liq 300 Ml PO ONCE PRN Dulcolax Supp (Bisacodyl) 10 Mg Supp 10 Mg DC DAILY PRN GIVE IF NO RESULTS 1 DAY AFTER MILK OF MAGNESIA Xarelto (Rivaroxaban) 10 Mg Tab 10 Mg PO DAILY Potassium Chloride ER (Potassium Chloride) 20 Meq Tab 20 Meq PO DAILY Gnp Melatonin (Melatonin) 3 Mg Tab 6 Mg PO HS Ferrous Sulfate DR (Ferrous Sulfate) 324 Mg Tabdr 324 Mg PO DAILY Exelon Patch (Rivastigmine) 4.6 mg/24 hr Patch 1 Patch T-DERMAL HS Escitalopram (Escitalopram Oxalate) 10 Mg Tab 10 Mg PO DAILY Allergies: Coded Allergies: *MDRO Multi-Drug Resistant Organism (Verified Adverse Reaction, Unknown, ) 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 Dad of [place] at age 65. Strong family history positive for heart disease, CHF Social History Previous history of smoking one third pack per day 15 years, quit in the early 90s. Denies alcohol or illicit drugs. Physical Exam Vital Signs Vital Signs Date Time Temp Pulse Resp B/P Pulse Ox O2 Delivery O2 Flow Rate FiO2 01/02/17 12:41 78 20 138/72 01/02/17 09:40 99 01/02/17 09:40 Nasal Cannula 2 01/02/17 09:40 61 20 146/63 01/02/17 09:10 99.5 71 18 133/73 94 Room Air Physical Exam GENERAL: This is a well-nourished, well-developed patient, in no apparent distress. SKIN: No rashes, ecchymoses or lesions. Cool and dry. HEAD: Atraumatic. Normocephalic. No temporal or scalp tenderness. EYES: Pupils equal round and reactive. Extraocular motions intact. No scleral icterus. No injection or drainage. ENT: Nose without bleeding, purulent drainage or septal hematoma. Throat without erythema, tonsillar hypertrophy or exudate. Uvula midline. Airway patent. NECK: Trachea midline. No JVD or lymphadenopathy. Supple, nontender, no meningeal signs. CARDIOVASCULAR: Regular rate and rhythm without murmurs, gallops, or rubs. RESPIRATORY: Clear to auscultation. Breath sounds equal bilaterally. No wheezes , rales, or rhonchi. GASTROINTESTINAL: Abdomen soft, non-tender, nondistended. No hepato-splenomegaly , or palpable masses. No guarding. MUSCULOSKELETAL: Extremities without clubbing, cyanosis;trace edema BLE. No joint tenderness, effusion, or edema noted. No calf tenderness. Negative Homans sign bilaterally. NEUROLOGICAL: Awake and alert. Cranial nerves II through XII intact. Motor and sensory grossly within normal limits. Five out of 5 muscle strength in all muscle groups. Normal speech. Laboratory Laboratory Tests Test 01/02/17 09:35 White Blood Count 5.7 Red Blood Count 3.36 Hemoglobin 10.8 Hematocrit 31.8 Mean Corpuscular Volume 94.8 Mean Corpuscular Hemoglobin 32.3 Mean Corpuscular Hemoglobin 34.0 Concent Red Cell Distribution Width 14.0 Platelet Count 167 Mean Platelet Volume 8.5 Neutrophils (%) (Auto) 74.8 Lymphocytes (%) (Auto) 14.6 Monocytes (%) (Auto) 10.0 Eosinophils (%) (Auto) 0.0 Basophils (%) (Auto) 0.6 Neutrophils # (Auto) 4.3 Lymphocytes # (Auto) 0.8 Monocytes # (Auto) 0.6 Eosinophils # (Auto) 0.0 Basophils # (Auto) 0.0 CBC Comment DIFF FINAL Differential Comment Prothrombin Time 11.7 Prothromb Time International 1.1 Ratio Activated Partial 29.0 Thromboplast Time Sodium Level 138 Potassium Level 4.6 Chloride Level 106 Carbon Dioxide Level 25.9 Anion Gap 6 Blood Urea Nitrogen 21 Creatinine 1.01 Estimat Glomerular Filtration 72 Rate Random Glucose 118 Calcium Level 9.6 Magnesium Level 2.1 Total Creatine Kinase 50 Troponin I LESS THAN 0.02 B-Type Natriuretic Peptide 171 Result Diagram: 01/02/1735 01/02/1735 Imaging Last Impressions Chest X-Ray 01/02/17 0935 Signed Impressions: Service Date/Time: December 09:44 - CONCLUSION: Cardiomegaly without acute infiltrate or effusion. Casey Dickey Jr., MD Assessment and Plan Problem List: (1) Atypical chest pain ICD Code: R07.89 Status: Acute Assessment and Plan 71-year-old man with Atypical chest pain ACS rule out per protocol with serial cardiac enzyme and EKGs Chest x-ray noted and review by me with finding of Cardiomegaly without acute infiltrate or effusion Lexiscan stress test in a.m. 01/03/17 and if Abnormal cardiology to consider left heart catheterization Cardiology consultation History of atrial fibrillation Patient is not on any beta yael Xarelto currently on hold History of diastolic CHF No exacerbation Resume Bumex and potassium supplement Other chronic medical conditions Continue outpatient medications Code Status Full code Discussed Condition With Patient, ED physician Triston Phelps MD Jan 02, 2017 13:46
[2017-01-02] MEDS ORDERED: ONDANSETRON HCL 4 MG/2 ML VIAL IV PRN (14:00)
[2017-01-02] MEDS ORDERED: ALPRAZolam 0.25 MG TAB PO PRN (14:00)
[2017-01-02] MEDS ORDERED: TEMAZEPAM 15 MG CAP PO PRN (14:00)
[2017-01-02] MEDS ORDERED: DOCUSATE SODIUM 50 MG/SENNA 8.6 MG TAB PO PRN (14:00)
[2017-01-02 15:30] VITALS: BP 120/68; PULSE 59; RESP 18; TEMP 97.8; O2SAT 97
[2017-01-02] MEDS: ACETAMINOPHEN/HYDROcodone 325 MG/7.5 MG TAB PO PRN (19:03)
[2017-01-02 20:00] VITALS: BP 142/58; PULSE 65; PULSE 66; RESP 18; TEMP 98.7; O2SAT 93
[2017-01-02] MEDS: FAMOTIDINE 20 MG TAB PO SCH (21:39)
[2017-01-02] MEDS: RIVASTIGMINE 4.6 MG/24 HOUR PATCH T-DERMAL SCH (21:39)
[2017-01-02] MEDS: SODIUM CHLORIDE 0.9% FLUSH 10 ML FLUSH IV FLUSH SCH (21:39)
[2017-01-02 21:44] LABS: CREATINE KINASE 42 U/L (39-308)
--- NOTE | 2017-01-02 23:01 | MB ---
cc: ROMI BABCOCK DO DATE OF CONSULTATION January 02, 2017 REASON FOR CONSULTATION Chest pain. HISTORY OF PRESENT ILLNESS Rui Campo is a pleasant 71-year-old male who presented to [facility] Emergency Room on January 02, 2017 due to chest fullness and pressure. He states that this has been going on for the past month but getting somewhat worse. It is similar to the previous times when he has needed some type of intervention, although not as bad. He denies shortness of breath with it. He states that the pain does not radiate anywhere, but it just feels more of a fullness in his chest. He called my partner, Dr. Thorne, and was instructed that if it is similar to previous that he should come to the emergency room for evaluation. Of note, the patient was previously on Xarelto but that has been stopped due to dental work with a recent complication. PAST MEDICAL HISTORY 1. Diastolic congestive heart failure. 2. Atrial fibrillation. 3. Coronary artery disease. 4. Obstructive sleep apnea. 5. Hyperlipidemia. 6. Urinary retention. 7. Peripheral edema. 8. Venous stasis ulcers. 9. Obesity. 10. RLS. 11. Cardiomyopathy. PAST SURGICAL HISTORY 1. Coronary artery bypass grafting x5. 2. Coronary artery disease with previous stents placed to unknown coronary anatomy. 3. Cholecystectomy. 4. Partial lobectomy secondary to pneumonia scarring. 5. Tonsillectomy. 6. Bowel resection secondary to small-bowel obstruction. ALLERGIES NO KNOWN DRUG ALLERGIES. MEDICATIONS 1. Flomax 0.4 milligrams daily. 2. Xarelto 10 milligrams daily (the patient has recently been off this due to dental work with complication). 3. Lexapro 10 milligrams daily. 4. Xanax 0.25 milligrams every 8 hours as needed for anxiety. 5. Requip 6 milligrams every 6 hours as needed for severe pain. 6. Zantac 150 milligrams b.i.d. 7. Iron 324 milligrams daily. 8. Bumetanide 2 milligrams daily. 9. Hydrocodone/acetaminophen 10/325 milligrams every 4 hours as needed for pain. 10. Exelon patch every night. 11. Potassium chloride 20 milliequivalents daily. FAMILY HISTORY Mother of a brain tumor. Father from myocardial infarction at the age of 65. Denies premature coronary artery disease within the family. SOCIAL HISTORY The patient previously smoked but quit in the early . Denies alcohol or illicit drugs. REVIEW OF SYSTEMS 14-systems were reviewed including osteopathic, pertinent positives and negatives above otherwise negative. PHYSICAL EXAMINATION VITAL SIGNS: Temperature 99.5, heart rate 78, blood pressure 138/72, respirations 20, pulse ox 99% on 2 liters. GENERAL: In general, the patient appears well, in acute distress, alert, awake and oriented x3. HEEN: Extraocular muscles intact. Mucous membranes moist. NECK: Supple. No JVD at 45 degrees. No carotid bruits heard bilaterally. Carotid upstroke is brisk in nature. HEART: Heart is regular rate and rhythm. Positive first and second heart sounds with no noted murmurs, gallops or rubs. PMI is difficult to ascertain due to body habitus. LUNGS: Lungs have decreased breath sounds bilaterally with no overt wheezes, rales or rhonchi. ABDOMEN: Soft, nontender, nondistended. No organomegaly noted. EXTREMITIES: Show no clubbing, cyanosis or edema. Femoral and distal pulses intact bilaterally. NEUROLOGICALLY: No focal deficits. SKIN: Warm, dry and intact. OSTEOPATHIC: Mild lordosis. No kyphoscoliosis or paraspinal tender points. LABORATORY FINDINGS Hemoglobin 10.8, hematocrit 31.8, platelets 167. Potassium 4.6, BUN 21, creatinine 1.01. Troponin negative x2. BNP 171. CARDIOLOGY STUDIES Electrocardiogram (January 02, 2017 at 09:36) AV paced. IMPRESSION 1. Atypical chest pain. 2. Coronary artery disease with a history of previous intervention as well as coronary artery bypass grafting to unknown coronary anatomy. 3. History of atrial fibrillation previously on Xarelto which has been held for a dental procedure. 4. History of diastolic heart failure. 5. Obstructive sleep apnea. 6. Hyperlipidemia. 7. Cardiomyopathy. RECOMMENDATIONS 1. Mr. Campo appears to have presented with chest pain, although overall this appears to be somewhat atypical in nature. 2. As he has been off his Xarelto will continue off of this in case he needs to undergo possible cardiac catheterization. 3. As he has been off of Xarelto I would start him on an aspirin for the time being until Xarelto can be restarted. 4. We will plan on having him undergo a pharmacologic nuclear stress test in the morning. 5. Further recommendations will be made after results of stress test. Thank you for allowing me to see Rui Dupree. If there are any questions please do not hesitate to call. Romi Babcock DO VGP/EO /10:29 PM /10:45 PM
[2017-01-03] VITALS (7 sets, daily range): BP systolic 118–130; BP diastolic 62–80; PULSE 58–71; RESP 18; TEMP 78.4–98.7; O2SAT 94–97
[2017-01-03] MEDS: ACETAMINOPHEN/HYDROcodone 325 MG/7.5 MG TAB PO PRN ×2 (02:36→09:25)
[2017-01-03 04:11] LABS: CREATINE KINASE 40 U/L (39-308)
--- NOTE | 2017-01-03 09:10 | HHI.PR ---
Subjective Remarks Follow-up for atypical chest pain. The patient had a 30-45 second episode of chest fluttering prior to admission yesterday. He denies any recurrent episodes yesterday overnight. He denies any chest pain or shortness of breath. Lower extremity edema. He has been off of Xarelto for the last week for a dental procedure and upcoming ulnar nerve surgery. He is anxious to have stress test today. He would prefer intervention over additional medications for medical management. Currently resides at [facility]. Objective Vitals Vital Signs Date Time Temp Pulse Resp B/P Pulse Ox O2 Delivery O2 Flow Rate FiO2 01/03/17 04:00 98.4 59 18 118/62 94 01/03/17 00:00 97.9 58 18 120/62 96 01/02/17 20:00 98.7 65 18 142/58 93 01/02/17 20:00 66 01/02/17 15:30 97.8 59 18 120/68 97 01/02/17 12:41 78 20 138/72 01/02/17 09:40 99 01/02/17 09:40 Nasal Cannula 2 01/02/17 09:40 61 20 146/63 01/02/17 09:10 99.5 71 18 133/73 94 Room Air I/O 01/02/17 01/02/17 01/02/17 01/03/17 01/03/17 01/03/17 07:00 15:00 23:00 07:00 15:00 23:00 Intake Total 240 ml 120 ml Output Total 600 ml 320 ml Balance -360 ml -200 ml Intake Oral 240 ml 120 ml Output Urine Total 600 ml 320 ml # Bowel Movements 0 1 Result Diagram: 01/02/1735 01/02/1735 Imaging Last Impressions Chest X-Ray 01/02/17934 Signed Impressions: Service Date/Time: December 09:44 - CONCLUSION: Cardiomegaly without acute infiltrate or effusion. Casey Dickey Jr., MD Objective Remarks GENERAL: Well-developed well-nourished. In no acute distress. SKIN: Warm and dry. No lesions noted. HEENT: Normocephalic. Pupils equal and round. Mucous membranes pink and moist. CARDIOVASCULAR: Irregular, controlled rate and irregular rhythm. No murmur appreciated. RESPIRATORY: No accessory muscle use. Clear to auscultation. Breath sounds equal bilaterally. GASTROINTESTINAL: Abdomen soft, non-tender, nondistended. Bowel sounds x4. MUSCULOSKELETAL: No obvious deformities. No clubbing or cyanosis. Lower extremity lymphedema with [place] wraps in place. NEUROLOGICAL: Awake and alert. No focal neurological deficits. Moves upper and lower extremities spontaneously. Normal speech. PSYCHIATRIC: Appropriate mood and affect; insight and judgment normal. A/P Problem List: (1) Atypical chest pain ICD Code: R07.89 Status: Acute Assessment and Plan 71-year-old man with Atypical chest pain Reviewed: Troponin within normal limits 3. EKG with atrial pacing, no significant change from previous. ACS ruled out per protocol with serial cardiac enzyme and EKGs Chest x-ray showed cardiomegaly without acute infiltrate or effusion Cardiology consulted planning for stress test today History of atrial fibrillation Patient is not on any beta yael Xarelto currently on hold Aspirin started History of diastolic CHF Not in exacerbation Continue Bumex and potassium supplement Other chronic medical conditions Continue outpatient medications Discharge Planning Follow-up results of stress test today and cardiology recommendations. If stress test is unremarkable and cleared by cardiology, possible discharge planning back to SNF. Miguel Donahue Jan 03, 2017 09:10
[2017-01-03] MEDS: FAMOTIDINE 20 MG TAB PO SCH ×2 (09:15→21:00)
[2017-01-03] MEDS: FERROUS SULFATE 325 MG (65 MG ELEMENTAL IRON) TAB PO SCH (09:16)
[2017-01-03] MEDS: ASPIRIN 81 MG CHEW TAB CHEW SCH (09:16)
[2017-01-03] MEDS: POTASSIUM CHLORIDE 20 MEQ CONTROLLED RELEASE TAB PO SCH (09:16)
[2017-01-03] MEDS: TAMSULOSIN HCL 0.4 MG CAP PO SCH (09:16)
[2017-01-03] MEDS: ESCITALOPRAM OXALATE 10 MG TAB PO SCH (09:17)
[2017-01-03] MEDS: SODIUM CHLORIDE 0.9% FLUSH 10 ML FLUSH IV FLUSH SCH ×2 (09:17→21:01)
--- NOTE | 2017-01-03 12:51 | PD.CARD.PN ---
Subjective Subjective Remarks No events overnight No chest pain/"fullness" Objective Medications Current Medications Medications (Trade) Dose Ordered Sig/Elmer Route Start Time Stop Time Status Last Admin (NS Flush) 2 ml BID IV FLUSH 01/02/17 21:00 01/03/17 09:17 (NS Flush) 2 ml UNSCH PRN IV FLUSH 01/02/17 12:15 (Nitrostat Sl) 0.4 mg Q5M PRN SL 01/02/17 12:15 (Tylenol) 500 mg Q4H PRN PO 01/02/17 12:15 ([place]illton 7.5-325 Mg) 1 tab Q4H PRN PO 01/02/17 12:15 01/03/17 09:25 (Zofran Inj) 4 mg Q6H PRN IV 01/02/17 14:00 (Polly-Colace) 1 tab BID PRN PO 01/02/17 14:00 (Restoril) 15 mg HS PRN PO 01/02/17 14:00 (Xanax) 0.25 mg Q8H PRN PO 01/02/17 14:00 (Bumetanide) 2 mg DAILY PO 01/03/17 09:00 (Lexapro) 10 mg DAILY PO 01/03/17 09:00 01/03/17 09:17 (KCl) 20 meq DAILY PO 01/03/17 09:00 01/03/17 09:16 (Exelon 4.6 Mg Patch.24hr) 1 patch HS T-DERMAL 01/02/17 21:00 01/02/17 21:39 (Flomax) 0.4 mg DAILY PO 01/03/17 09:00 (Ferrous Sulfate) 325 mg DAILY PO 01/03/17 09:00 01/03/17 09:16 (Pepcid) 20 mg BID PO 01/02/17 21:00 01/03/17 09:15 (Aspirin Chew) 81 mg DAILY CHEW 01/03/17 09:00 01/03/17 09:16 (Requip) 6 mg TID PRN PO 01/03/17 10:45 01/03/17 11:08 Vital Signs / I&O Vital Signs Date Time Temp Pulse Resp B/P Pulse Ox O2 Delivery O2 Flow Rate FiO2 01/03/17 12:00 98.7 70 18 130/66 95 01/03/17 08:00 98.0 69 18 130/70 97 01/03/17 07:43 64 01/03/17 04:00 98.4 59 18 118/62 94 01/03/17 00:00 97.9 58 18 120/62 96 01/02/17 20:00 98.7 65 18 142/58 93 01/02/17 20:00 66 01/02/17 15:30 97.8 59 18 120/68 97 I/O 01/02/17 01/02/17 01/02/17 01/03/17 01/03/17 01/03/17 06:59 14:59 22:59 06:59 14:59 22:59 Intake Total 240 ml 120 ml Output Total 600 ml 320 ml Balance -360 ml -200 ml Intake Oral 240 ml 120 ml Output Urine Total 600 ml 320 ml # Bowel Movements 0 1 Physical Exam GENERAL: NAD, AAOx3 SKIN: Warm and dry. HEAD: Atraumatic. Normocephalic. EYES: Pupils equal and round. No scleral icterus. No injection or drainage. ENT: No nasal bleeding or discharge. Mucous membranes pink and moist. NECK: Trachea midline. No JVD. CARDIOVASCULAR: Regular rate and rhythm. RESPIRATORY: No accessory muscle use. Decreased breath sounds bilaterally GASTROINTESTINAL: Abdomen soft, non-tender, nondistended. Hepatic and splenic margins not palpable. MUSCULOSKELETAL: Extremities without clubbing, cyanosis, or edema. No obvious deformities. NEUROLOGICAL: Awake and alert. No obvious cranial nerve deficits. Motor grossly within normal limits. Five out of 5 muscle strength in the arms and legs. Normal speech. PSYCHIATRIC: Appropriate mood and affect; insight and judgment normal. Laboratory Laboratory Tests Test 01/02/17 01/03/17 20:43 03:27 Total Creatine Kinase 42 U/L 40 U/L Troponin I LESS THAN 0.02 LESS THAN 0.02 NG/ML NG/ML Assessment and Plan Problem List: (1) Atypical chest pain (2) H/O heart artery stent (3) Hx of cardiac pacemaker (4) Chronic diastolic (congestive) heart failure (5) Sleep apnea (6) HTN (hypertension) (7) Obesity (8) Hyperlipidemia (9) Diabetes Assessment and Plan 1) Plan pharmacologic nuclear stress test today If negative, continue medical management of CAD and can be discharged from a cardiovascular standpoint If positive, depending on the size of the defect would consider coronary visualization, will leave NPO until results can be discussed with him 2) Currently off Xarelto for his atrial fibrillation, will con't to hold until determining if cardiac catheterization is needed If no catheterization, needs to be restarted back on his Xarelto Shmuel Beltran DO Jan 03, 2017 12:51
[2017-01-03] MEDS ORDERED: REGADENOSON INJ 0.4 MG/5 ML SYR ONE (13:01)
[2017-01-03] MEDS ORDERED: AMINOPHYLLINE INJ 250 MG/10 ML VIAL ONE (13:40)
--- NOTE | 2017-01-03 15:20 | RADRPT ---
EXAM DATE/TIME: 01/03/2017 12:34 [facility] COMPARISON: CT ABDOMEN & PELVIS W/O CONTRAST, December 07, 2016, 18:24. INDICATIONS : Left chest pain with dyspnea. Angina. DOSE: 25.4 mCi Tc99m Myoview at stress. 8.6 mCi Tc99m Myoview at rest. 0.4 mg Lexiscan STRESS SYMPTOMS: Dyspnea, chest pressure and nausea. MEDICATIONS: 1.) 100 mg Aminophylline IV EJECTION FRACTION: 56% MEDICAL HISTORY : Congestive hearrt failure. Hypercholesterolemia. Gastroesophageal reflux disease. Asthma. SURGICAL HISTORY : Pacemaker. Coronary artery stent. CABG ENCOUNTER: Initial ACUITY: 1 month PAIN SCALE: 5/10 LOCATION: Left chest TECHNIQUE: The patient underwent pharmacologic stress with infusion of prescribed dose. Continuous ECG tracing was monitored during stress. Gated SPECT imaging was performed after stress and conventional SPECT i maging was performed at rest. The examination was performed on a SPECT/CT scanner, both attenuation and non-corrected datasets were reviewed. FINDINGS: DISTRIBUTION: The maximum perfused segment at stress is in the septal wall. PERFUSION STUDY: The examination demonstrates a mild in severity, reversible perfusion defect involving the anterior w all. GATED STUDY: There is intact wall motion and thickening without hypokinetic or dyskinetic segments. CONCLUSION: Mild in severity, reversible perfusion defect involving the anterior wall. Overall suspicion is low h owever, stress-induced myocardial ischemia is not excluded. RISK CATEGORY: Intermediate (1-3% Annual Mortality Rate) Srinivas Sevilla MD on January 03, 2017 at 14:47 Board Certified Radiologist. This report was verified electronically.
[2017-01-03] MEDS ORDERED: HEPARIN-NS/PF INJ 500 ML ONE (18:07)
[2017-01-03] MEDS ORDERED: MIDAZOLAM HCL 2 MG/2 ML VIAL ONE (18:14)
--- NOTE | 2017-01-03 19:34 | CATHPROC ---
Opposing Views HIS Report Study Information Study Number Admission Scheduled Start Study Start [id number] Jan 02 2017 11:55AM 01/03/2017 Jan 03 2017 6:04PM [facility]iac Catheterization Admit Source Facility Department Other [facility] Inspector Physician and Clinical Staff Initial Shmuel Zarate Dope Edger Ye Powers RN Recorder Vero Navarrete,RT(R) Scrub Franco, Mel,MACHINE GRAINER TECH2 Procedures Performed Procedure Location (Site) Vessel Name Coronary Angiograms RCA Right Coronary Coronary Angiograms GUY-LAD Left Coronary Coronary Angiograms SVG-OM CIRC Coronary Angiograms Gft. Stump 1 SVG Graft Wire insertion Fem Art (right) Femoral Art Equipment Time Contact Lens Blocker Description Size Mfg Part Number Used/Scraped TRANSDUCER, TRMaxta [id number] 18:14 [facility] * Used W/STOCKCOCK *[id number] *[id number] *[id number] *[id number] *[id number] 18:14 [employer], CCL CUSTOM * Used *[id number] 18:14 [employer] MEDICAL SHEATH, FR5.5 PRELUDE 11CM FR 5 [id number] Used [id number] 18:14 [employer] MEDICAL WIRE, 3MMJ .035 180CM 180CM Used *[id number] 18:44 [employer] MEDICAL WIRE, EXCHANGE 260CM 3MMJ 260CM Used *[id number] 18:14 [employer], 4 PORT * Used *[id number] 18:14 [employer] OMNIPAQUE, 350 MG, 150ML 150ML [id number] Used [id number] 18:14 [employer] BLANKET,WARM AIR CCL * Used *[id number] History: Current Medications Medication Dosage/Unit Route Frequency Last Date/Time Taken ASA History: Risk Factors Family History of Hypertension Dyslipidemia Previous MO Previous Heart Failure Premature CAD Yes Yes Yes No Yes Prior Valve Prior PCI Prior PCIDate Prior CABG Prior CABGDate Surgery No Yes 06/23/2010 Yes 06/23/1998 Cerebrovascular Peripheral Artery Chronic Lung On Dialysis Diabetes Disease Disease Disease No No Yes No No History: CV Disease Selection Items Known CAD History: Stress Tests Stress or Imaging Studies Performed Yes Standard Exercise Stress Test No Stress Echo No Stress Test SPECT Stress Test SPECT Result Stress Test SPECT Ischemia Risk/Extent Yes Positive Intermediate Stress Test CMR No Cardiac CTA Coronary Calcium Score No No History: Other Disease Selection Items CAD HTN History: Other Current Smoker Method Quit Packs a Day Years Used Pack Years No Cigarettes 25 Years Ago 1 15 15 Labs Hgb (g/dl) Hct (%) RBC (MIL/MM3) WBC (l/cumm) Platelets (thousands) 11.60-17.00 35.00-51.00 4.00-5.90 4.00-11.00 150.00-450.00 10.8 31.8 3.3 5.7 167 Glucose (mg/dl) BUN (mg/dl) Creatinine (mg/dl) BUN:Creatinine (1:x) 74.00-106.00 7.00-18.00 0.50-1.30 10.00-20.00 118 21 1.0 21 Na (meq/l) K (meq/l) Cl (meq/l) CO2 (mmol/L) Ca (mg/dl) 136.00-145.00 3.50-5.10 98.00-107.00 21.00-32.00 8.50-10.10 138 4.6 106 25.9 9.6 PT (sec) PTT (sec) INR (PTT:PT) 9.80-11.60 24.30-30.10 0.90-1.10 11.7 29 1.1 Troponin I (ng/ml) CPK (u/l) CPK-MB (ng/ML) 0.02-0.05 26.00-308.00 0.50-3.60 0.02 40 Not Drawn Medication Medication Total Dose (Bolus/Oral) Medication Total Dosage/Unit FENTANYL 75 mcg VERSED 1 mg Medications (Bolus/Oral) Medication Time Given Dosage/Unit Administered By Reason VERSED 01/03/2017 6:17:40 PM 1 mg Ye Powers 1 mg VERSED given in lab by Ye Powers RN via Peripheral IV. FENTANYL 01/03/2017 6:18:18 PM 50 mcg Ye Powers 50 mcg FENTANYL given in lab by Ye Powers RN via Peripheral IV. FENTANYL 01/03/2017 6:52:43 PM 25 mcg Ye Powers 25 mcg FENTANYL given in lab by Ye Powers RN via Peripheral IV. Medication (Drip) Medication Time Given Dosage/Unit Concentration/Unit Diluent (ml) Solution IV Solutions 01/03/2017 6:15:33 PM 0 mL (IV) 500 NaCl .9 Patient arrived on IV Solutions in Left Antecubital via Peripheral IV. Pump/Drip Flow = 20 ml/hr usin g NaCl .9. Initial Case Assessment Cardiovascular HR Rhythm NIBP Chest Pain 72 reg 133/75 0 Edema Present Skin color Skin Mild Normal Warm Circulatory - Right Pulses Dorsalis Pedis Femoral 1 2 Scale (0,1,2,3,4,d) Circulatory - Left Pulses Dorsalis Pedis Femoral 1 2 Scale (0,1,2,3,4,d) Circulatory - Lower Extremities Color Lower Right Color Lower Left Normal Normal Neurological State Oriented to time-place- Alert Moves all extremities person Respiration - General Respiration Rate SpO2 (%) (B/min) 20 98 Chronological Log Time Study Chronological Log 17:45:53 Patient arrived via Bed. 17:46:00 Consent signed by the physician and the patient and verified by the [facility] staff. 17:46:58 Patient Name, D.O.B, / Armband Verified By R.N. 17:47:00 Pre-op and post- op instructions given; patient acknowledges understanding of instructions. 17:48:00 Verbal Stimulation=2 Physical Stimulation=2 Airway=2 Respiration=2 TOTAL=8. (0=absent, 1=li mited, 2=present) 18:04:18 Patient has been NPO for More than 6Hrs. Vitals capture started with the following parameters, Patient=Adult, Interval=5 min, Initial Pr isyrau=310 mmHg, 18:04:22 Deflation Rate=5 mmHg 18:05:06 HR=70 bpm, YVYD=541/65 mmhg, SpO2=98.0 %, Pain=0, Desiree=10, Ventura=2 18:10:01 HR=70 bpm, VALV=778/76 mmhg, SpO2=98.0 %, Pain=0, Desiree=10, Ventura=2 18:12:41 Pressure channel 1 zeroed. 18:12:42 MD arrived. 18:14:32 Skin Breakdown-biateral cellulitis lower extremities;covered 18:15:18 A # 20 IV was noted in the Antecubital (left). Grade = 0 18:15:33 Patient arrived on IV Solutions in Left Antecubital via Peripheral IV. Pump/Drip Flow = 20 ml/hr using NaCl .9. 18:15:37 HR=69 bpm, QYQK=628/75 mmhg, SpO2=97.0 %, Pain=0, Desiree=10, Ventura=2 18:15:45 History and physical on the chart or being dictated. Assessment: Initial Case, HR=72 BPM, Rhythm=reg, QNBT=541/75 mmhg, Chest Pain=0, Edema=Mild, Co echo=Normal, Skin = Warm Right Pulses: Aryan Ped=1, Femoral=2 Left Pulses: Aryan Ped=1, Femoral=2 18:15:51 Lower Right Extremities: Color=Normal Lower Left Extremities: Color=Normal Neurological: State=Alert, Ox3, JAQUEZ Respiration: Resp=20 B/min, SpO2=98 % 18:16:37 Bilateral groins prepped with 2% chlorhexidine, and with a 3 min. waiting time. Time Out. Correct patient, correct procedure,correct physician, ,power injector not loaded with contrast with surgical 18:16:49 team present. Time Out Concurred by MD, individual staff and CAMPUS WELLNESS COORDINATOR in procedure 18:16:56 Case Start 18:16:58 Verbal Stimulation=2 Physical Stimulation=2 Airway=2 Respiration=2 TOTAL=8. (0=absent, 1=li mited, 2=present) 18:17:05 Reference ECG taken 18:17:40 1 mg VERSED given in lab by Ye Powers RN via Peripheral IV. 18:18:18 50 mcg FENTANYL given in lab by Ye Powers RN via Peripheral IV. 18:18:30 Access site was Right Femoral Artery. 18:18:38 A wire was inserted via Fem Art (right). A SHEATH, FR5.5 PRELUDE 11CM FR 5 was advanced into the Fem Art (right) using the Percutaneous technique. with 18:18:41 micropuncture kit 18:20:03 HR=71 bpm, RWZA=440/67 mmhg, SpO2=95.0 %, Pain=0, Desiree=10, Ventura=2 18:20:12 An injection in the Fem Art (right) was made through the SHEATH, FR5.5 PRELUDE 11CM FR 5. A JR 4.0 INFINITI CATHETER FR 5 was advanced over a wire. OMNIPAQUE, 350 MG, 150ML 150ML was us ed for 18:22:04 injections. Recorded Pressure: LV, HR=77, Condition=Condition 1 18:23:00 (Left Ventricle) LV 112/4/9 Recorded Pressure: LV, Ao, HR=73, Condition=Condition 1 18:23:16 (Left Ventricle) LV 123/6/13, (Aorta) Ao 122/67/90 18:23:38 Pressure channel 1 zero failed. Recorded Pressure: Ao, HR=69, Condition=Condition 1 18:23:58 (Aorta) Ao 110/63/82 18:24:06 The RCA was injected and visualized at various angles. OMNIPAQUE, 350 MG, 150ML 150ML used . 18:25:02 HR=70 bpm, WXEM=987/62 mmhg, SpO2=91.0 %, Pain=0, Desiree=10, Ventura=2 18:28:23 The Gft. Stump 1 was injected and visualized at various angles. OMNIPAQUE, 350 MG, 150ML 15 0ML used. 18:30:03 HR=70 bpm, VIIR=474/59 mmhg, SpO2=95.0 %, Pain=0, Desiree=10, Ventura=2 18:30:48 The SVG-OM was injected and visualized at various angles. OMNIPAQUE, 350 MG, 150ML 150ML us ed. 18:35:00 HR=70 bpm, SFPG=554/61 mmhg, SpO2=96.0 %, Pain=0, Desiree=10, Ventura=2 18:39:59 HR=70 bpm, TIVQ=401/65 mmhg, SpO2=95.0 %, Pain=0, Desiree=10, Ventura=2 18:41:16 The GUY-LAD was injected and visualized at various angles. OMNIPAQUE, 350 MG, 150ML 150ML used. 18:44:04 Catheter was removed over a wire 18:45:00 HR=70 bpm, WBHA=280/60 mmhg, SpO2=94.0 % A MARIBETH INFINITI CATHETER FR 5 was advanced over a wire. OMNIPAQUE, 350 MG, 150ML 150ML was used for 18:45:29 injections. 18:50:01 HR=70 bpm, IBIX=356/64 mmhg, SpO2=96 %, Pain=0, Desiree=10, Ventura=2 18:52:43 25 mcg FENTANYL given in lab by Ye Powers, RN via Peripheral IV. 18:55:06 HR=70 bpm, ISRK=893/47 mmhg, SpO2=96 %, Pain=0, Desiree=10, Ventura=2 After removing the current catheter a 3DRC INFINITI CATHETER FR 5 was advanced over a WIRE, E XCHANGE 260CM 18:59:37 3MMJ 260CM. 19:00:07 HR=69 bpm, NIBP=88/37 mmhg, SpO2=94.0 %, Pain=0, Desiree=10, Ventura=2 19:00:37 NIBP STAT measurement started. 19:01:09 HR=69 bpm, HRJQ=809/50 mmhg, SpO2=96 %, Pain=0, Desiree=10, Ventura=2 19:02:46 The GUY-LAD was injected and visualized at various angles. OMNIPAQUE, 350 MG, 150ML 150M L used. After removing the current catheter a JL 4.0 INFINITI CATHETER FR 5 was advanced over a WIRE, EXCHANGE 260CM 19:03:33 3MMJ 260CM. 19:05:02 HR=73 bpm, UEPH=251/51 mmhg, SpO2=95.0 %, Pain=0, Desiree=10, Ventura=2 19:10:05 HR=69 bpm, MRMP=181/53 mmhg, SpO2=96.0 %, Pain=0, Desiree=10, Ventura=2 19:15:00 HR=71 bpm, BBNP=466/64 mmhg, SpO2=99.0 %, Pain=0, Desiree=10, Ventura=2 19:15:25 Case End 19:17:41 Sheath removed; pressure applied to access site. Mel Wisey 19:20:12 HR=70 bpm, QSCT=207/39 mmhg, SpO2=97.0 %, Pain=0, Desiree=10, Ventura=2 19:25:35 HR=70 bpm, JOKV=170/76 mmhg, SpO2=97.0 %, Pain=0, Desiree=10, Ventura=2 19:30:10 HR=70 bpm, OZNM=476/71 mmhg, SpO2=97.0 %, Pain=0, Desiree=10, Ventura=2 19:33:35 hemastasis acheived End Study - Contrast Media Used In Study Contrast Total Opened (mL) Total Used (mL) Total Wasted (mL) Omnipaque 110 110 0 End Study - Maximum Contrast Load Max Contrast Load (mL) 496.6 End Study - Radiation Exposure Fluoro Time (minutes) 22.5 End Study - Sheaths Sheaths Pulled By Sheath Hold Time (min) Mel Gamez 20 End Study - Patient Disposition Complications Transferred To No [facility] Strength Inspector Holding
[2017-01-03] MEDS ORDERED: SODIUM CHLOR 0.9% 1000 ML INJ 1,000 ML IV SCH (19:41)
[2017-01-03] MEDS ORDERED: MISC INFORMATION XX ONE (19:45)
--- NOTE | 2017-01-03 20:41 | MA ---
cc: ROMI BABCOCK DO DATE: 01/03/2017. PROCEDURE PERFORMED: Left heart catheterization, coronary angiogram, bypass angiogram, moderate sedation 50 minutes. PREPROCEDURE DIAGNOSIS: 1. Chest pain. 2. Abnormal stress test. 3. History of coronary artery bypass grafting. POSTPROCEDURE DIAGNOSIS: 1. Severe coronary artery disease. 2. Bypass grafts patent (2/3), no interventional lesions at this time. MEDICATIONS: Versed 1 milligrams. Fentanyl 75 micrograms. CONTRAST USED: 110 cc. FLUOROSCOPY: 22.5 minutes. SEDATION: Moderate sedation 50 minutes. ESTIMATED BLOOD LOSS: 20 cc. DESCRIPTION OF THE PROCEDURE IN DETAIL / PROCEDURAL SUMMARY: Rui Campo is a pleasant 71-year-old male who presented to [facility] Emergency Room due to chest pain. His chest pain was atypical for coronary insufficiency, but because he has a significant history of coronary artery disease, he was recommended pharmacologic nuclear stress testing. During this, the stress test was read as possible anterior ischemia could not be ruled out but intermediate risk overall. Because of this nature, it was felt that he should undergo coronary angiogram. His previous cardiac catheterization from 2010 films were not available from [facility] but a note from Dr. Ibarra was reviewed for coronary anatomy. Risks, benefits and alternatives were explained to him and he consented as such. He was brought to lab and prepped in the usual sterile fashion. The right femoral artery was accessed using a modified Seldinger technique with a micropuncture needle and placement of a 5-Haitian sheath. This was easily aspirated and flushed. Right femoral angiogram shows no significant disease throughout the femoral artery. A JR-4 catheter was advanced over a J-wire to the ascending aorta and across the aortic valve to measure pressures within the left ventricle. This was then pulled back across the aortic valve showing no significant gradient of aortic stenosis. JR-4 catheter was used for selective angiography of the right coronary system and SVG graft. I attempted to use the JR-4 and an IM catheter to access the GUY but was unable to. I then exchanged the IM catheter for a 3DRC which was used for angiography of the GUY to the left anterior descending. The 3D-RCA was then exchanged for a JL-4 which was used for selective angiography of the left coronary system. JL-4 was then removed over a J-wire. A 5-Haitian sheath was removed with pressure held for hemostasis. The patient left the labeling strategist cardiovascularly stable. FINDINGS: 1. LEFT MAIN: 10% disease throughout. It bifurcates into an left anterior descending and circumflex. 2. LEFT ANTERIOR DESCENDING: The LAD has tandem 80% lesions with distal competitive flow from the GUY. This portion of the LAD supplies a few small septal perforators and two small diagonals. 3. LEFT CIRCUMFLEX: The left circumflex has a 70% proximal portion with 100% occlusion distal to this. 4. RIGHT CORONARY ARTERY: Mild luminal irregularities throughout the proximal to midportion with a 50% lesion in the ett-ae-ukleex portion before previous stenting. The PDA appears to be occluded with a large posterolateral branch. Previous stent appears patent with 20% in-stent restenosis. 5. SVG to RCA occluded. 6. SVG to obtuse marginal is patent and supplies the stent two obtuse marginals with no significant disease. 7. GUY to LAD is patent with no significant disease. It touches down to a small LAD which does supply a small diagonal and has competitive flow in the proximal portion from the moapa LAD. Left ventricular end diastolic pressure is 13. IMPRESSIONS: 1. Multivessel coronary artery disease as above. 2. History of coronary artery bypass grafting (07/26 patent grafts as before). 3. Abnormal stress test not correlating with current coronary artery disease. RECOMMENDATIONS: 1. Mr. Campo presented with chest pain which was not overly concerning but enough that he required stress testing. This was labeled as abnormal with an intermediate risk. 2. His coronary artery disease sounds similar to his previous cardiac catheterization in 2010 and it does not appear that there are any lesions that correlate with current ischemia on stress test as well as no lesions that are intervenable at this time, which will help him. 3. Will continue medical management for his coronary artery disease. 4. He previously was to be on Xarelto but has stopped it since a dental procedure around five to seven days ago. I explained to him that he can restart his Xarelto tomorrow night. 5. He can follow up with Dr. Thorne in the next two to four weeks. 6. If stable in the morning, he can be discharged home from a cardiovascular standpoint. Thank you for allowing me to see Rui Campo. If there are any questions, please do not hesitate to call. Romi BAER/ALVAREZ /7:30 PM /8:30 PM
[2017-01-03] MEDS: RIVASTIGMINE 4.6 MG/24 HOUR PATCH T-DERMAL SCH (21:00)
[2017-01-04] VITALS: BP 120/68; PULSE 71; RESP 18; TEMP 98.7; O2SAT 97
[2017-01-04 04:00] VITALS: BP 120/70; PULSE 70; RESP 18; TEMP 99.7; O2SAT 95
[2017-01-04] MEDS: ACETAMINOPHEN/HYDROcodone 325 MG/7.5 MG TAB PO PRN (05:16)
[2017-01-04 08:00] VITALS: BP 113/59; PULSE 70; RESP 16; TEMP 98.4; O2SAT 98
[2017-01-04 08:14] LABS: AUTOMATED NEUTROPHIL # 4.7 TH/MM3 (1.8-7.7); BASOPHIL % 0.7 % (0.0-2.0); HEMO FLAGS DIFF FINAL; LYMPH % 13.2 % (9.0-44.0); LYMPHOCYTE # 0.8 TH/MM3 (1.0-4.8); MEAN CELL VOLUME 93.9 FL (80.0-100.0); MEAN CORPUSCULAR HGB CONC 35.2 % (32.0-36.0); MONO % 10.5 % (0.0-8.0); NEUT % 75.6 % (16.0-70.0); PLATELET COUNT 171 TH/MM3 (150-450); RED BLOOD COUNT 3.41 MIL/MM3 (4.50-5.90); RED CELL DISTRIBUTION WIDTH 13.7 % (11.6-17.2); WHITE BLOOD COUNT 6.3 TH/MM3 (4.0-11.0)
[2017-01-04 08:25] LABS: BICARBONATE 23.6 MEQ/L (21.0-32.0); POTASSIUM 3.9 MEQ/L (3.5-5.1)
[2017-01-04] MEDS: FAMOTIDINE 20 MG TAB PO SCH (08:56)
[2017-01-04] MEDS: FERROUS SULFATE 325 MG (65 MG ELEMENTAL IRON) TAB PO SCH (08:56)
[2017-01-04] MEDS: POTASSIUM CHLORIDE 20 MEQ CONTROLLED RELEASE TAB PO SCH (08:56)
[2017-01-04] MEDS: BUMETANIDE 1 MG TAB PO SCH ×2 (08:56→09:00)
[2017-01-04] MEDS: TAMSULOSIN HCL 0.4 MG CAP PO SCH ×2 (08:56→09:00)
[2017-01-04] MEDS: ASPIRIN 81 MG CHEW TAB CHEW SCH (08:56)
[2017-01-04] MEDS: ESCITALOPRAM OXALATE 10 MG TAB PO SCH (08:56)
[2017-01-04] MEDS: SODIUM CHLORIDE 0.9% FLUSH 10 ML FLUSH IV FLUSH SCH (09:00)
[2017-01-04] MEDS ORDERED: ALPR.25 PO (10:28)
[2017-01-04] MEDS ORDERED: HYDR-3583 PO (10:28)
--- NOTE | 2017-01-04 10:29 | HHI.DCPOC ---
Discharge Care Plan Diagnosis: (1) Chest pain (2) SOB (shortness of breath) Goals to Promote Your Health * To prevent worsening of your condition and complications * To maintain your health at the optimal level Directions to Meet Your Goals Take your medications as prescribed Follow your dietary instruction Follow activity as directed Keep your appointments as scheduled Take your immunizations and boosters as scheduled If your symptoms worsen call your PCP, if no PCP go to Urgent Care Center or Emergency Room Smoking is Dangerous to Your Health. Avoid second hand smoke Call the 24-hour hour crisis hotline for domestic abuse at Miguelito Bernstein DO Jan 04, 2017 10:29
--- NOTE | 2017-01-04 10:38 | HHI.PR ---
Subjective Remarks The patient was sitting in a chair. He said that he had no further chest pain. He said that he does have some shortness of breath that he deals with from time to time. He was looking forward to being discharged from the hospital. He had no acute complaints. He said he tolerated the catheterization well. Discussed with nursing. Objective Vitals Vital Signs Date Time Temp Pulse Resp B/P Pulse Ox O2 Delivery O2 Flow Rate FiO2 01/04/17 08:00 98.4 70 16 113/59 98 01/04/17 04:00 99.7 70 18 120/70 95 01/04/17 00:00 98.7 71 18 120/68 97 01/03/17 21:00 78.4 70 18 118/70 96 01/03/17 16:00 97.9 70 18 120/80 97 01/03/17 12:00 98.7 70 18 130/66 95 I/O 01/03/17 01/03/17 01/03/17 01/04/17 01/04/17 01/04/17 06:59 14:59 22:59 06:59 14:59 22:59 Intake Total 120 ml 0 ml Output Total 320 ml 600 ml 100 ml 300 ml Balance -200 ml -600 ml -100 ml -300 ml Intake Oral 120 ml 0 ml Output Urine Total 320 ml 600 ml 100 ml 300 ml # Bowel Movements 1 2 0 0 Result Diagram: 01/04/17 0706 01/04/17 0706 Imaging Last Impressions Myocardial Perfusion Scan Nuc Med 01/03/17 0000 Signed Impressions: Service Date/Time: Tuesday, January 03, 2017 12:34 - CONCLUSION: Mild in severity , reversible perfusion defect involving the anterior wall. Overall suspicion is low however, stress-induced myocardial ischemia is not excluded. RISK CATEGORY : Intermediate (1-3%% Annual Mortality Rate) Srinivas Sevilla MD Chest X-Ray 01/02/17 0935 Signed Impressions: Service Date/Time: December 09:44 - CONCLUSION: Cardiomegaly without acute infiltrate or effusion. Casey Dickey Jr., MD Objective Remarks GENERAL: Well-developed well-nourished. In no acute distress. SKIN: Warm and dry. No lesions noted. HEENT: Normocephalic. Pupils equal and round. Mucous membranes pink and moist. CARDIOVASCULAR: Irregularly irregular rhythm. No murmur appreciated. RESPIRATORY: No accessory muscle use. Slight crackles at the bases. GASTROINTESTINAL: Abdomen soft, non-tender, nondistended. Bowel sounds x4. MUSCULOSKELETAL: No obvious deformities. No clubbing or cyanosis. Lower extremity lymphedema with [place] wraps in place. NEUROLOGICAL: Awake and alert. No focal neurological deficits. Moves upper and lower extremities spontaneously. Normal speech. PSYCHIATRIC: Appropriate mood and affect; insight and judgment normal. Procedures Cardiac catheterization 01/03 Medications and IVs Current Medications Medications (Trade) Dose Ordered Sig/Elmer Route Start Time Stop Time Status Last Admin (NS Flush) 2 ml BID IV FLUSH 01/02/17 21:00 01/04/17 09:00 (NS Flush) 2 ml UNSCH PRN IV FLUSH 01/02/17 12:15 (Nitrostat Sl) 0.4 mg Q5M PRN SL 01/02/17 12:15 (Tylenol) 500 mg Q4H PRN PO 01/02/17 12:15 ([place] 7.5-325 Mg) 1 tab Q4H PRN PO 01/02/17 12:15 01/04/17 05:16 (Zofran Inj) 4 mg Q6H PRN IV 01/02/17 14:00 (Polly-Colace) 1 tab BID PRN PO 01/02/17 14:00 (Restoril) 15 mg HS PRN PO 01/02/17 14:00 (Xanax) 0.25 mg Q8H PRN PO 01/02/17 14:00 01/04/17 06:12 (Bumetanide) 2 mg DAILY PO 01/03/17 09:00 01/04/17 08:56 (Lexapro) 10 mg DAILY PO 01/03/17 09:00 01/04/17 08:56 (KCl) 20 meq DAILY PO 01/03/17 09:00 01/04/17 08:56 (Exelon 4.6 Mg Patch.24hr) 1 patch HS T-DERMAL 01/02/17 21:00 01/03/17 21:00 (Flomax) 0.4 mg DAILY PO 01/03/17 09:00 01/04/17 08:56 (Ferrous Sulfate) 325 mg DAILY PO 01/03/17 09:00 01/04/17 08:56 (Pepcid) 20 mg BID PO 01/02/17 21:00 01/04/17 08:56 (Aspirin Chew) 81 mg DAILY CHEW 01/03/17 09:00 01/04/17 08:56 (Requip) 6 mg TID PRN PO 01/03/17 10:45 01/04/17 05:17 A/P Problem List: (1) Atypical chest pain ICD Code: R07.89 Status: Acute Assessment and Plan Atypical chest pain Reviewed: Troponin within normal limits 3. EKG with atrial pacing, no significant change from previous. ACS ruled out per protocol with serial cardiac enzyme and EKGs. Chest x-ray showed cardiomegaly without acute infiltrate or effusion. Stress test could not rule out myocardial ischemia so cardiology took pt for catheterization. No change in the pt's coronary artery disease per cardiology. - follow up with cardiology as an outpt. - continue cardiac regimen. History of atrial fibrillation Patient is not on any beta yael. Xarelto currently on hold for cath. - resume Xarelto. - follow up with cardiology. History of diastolic CHF Not in exacerbation. CXR unremarkable. Has some shortness of breath at baseline. - Continue Bumex and potassium supplement. Other chronic medical conditions Continue outpatient medications PPx: Xarelto Discharge Planning D/c back to [facility] Miguelito Bernstein DO Jan 04, 2017 10:38
--- NOTE | 2017-01-04 10:59 | EKG ---
Date Performed: 01/02/2017 Time Performed: 21:45:24 PTAGE: 71 years EKG: ELECTRONIC ATRIAL PACEMAKER ELECTRONIC VENTRICULAR PACEMAKER ABNORMAL RHYTHM ECG PREVIOUS TRACING : 01/02/2017 17.10 DOCTOR: Alphonso Aguilar Interpretating Date/Time 01/04/2017 10:54:39
--- NOTE | 2017-01-04 11:05 | EKG ---
Date Performed: 01/02/2017 Time Performed: 17:10:53 PTAGE: 71 years EKG: ELECTRONIC ATRIAL PACEMAKER ELECTRONIC VENTRICULAR PACEMAKER ABNORMAL RHYTHM ECG PREVIOUS TRACING : 01/02/2017 09.36 DOCTOR: Alphonso Aguilar Interpretating Date/Time 01/04/2017 10:57:21
== END 2017-01-04 18:15 ==
LOC: NEPE 09:06 → NEDA 11:55 → INTOOBSV 11:55 → N04B 14:49
PROVIDERS: ADMIT Hospitalist; ATTEND Hospitalist
DX: R07.89 Other chest pain (principal); I11.0 Hypertensive heart disease with heart failure; I50.32 Chronic diastolic (congestive) heart failure; R06.02 Shortness of breath; R94.39 Abnormal result of other cardiovascular function study; R06.00 Dyspnea, unspecified; R11.0 Nausea; R94.31 Abnormal electrocardiogram [ECG] [EKG]; I25.119 Atherosclerotic heart disease of native coronary artery with unspecified angina pectoris; E78.5 Hyperlipidemia, unspecified; I48.91 Unspecified atrial fibrillation; I42.9 Cardiomyopathy, unspecified; I25.2 Old myocardial infarction; E78.00 Pure hypercholesterolemia, unspecified; K21.9 Gastro-esophageal reflux disease without esophagitis; J45.909 Unspecified asthma, uncomplicated; L97.909 Non-pressure chronic ulcer of unspecified part of unspecified lower leg with unspecified severity; I83.009 Varicose veins of unspecified lower extremity with ulcer of unspecified site; E11.9 Type 2 diabetes mellitus without complications; G47.33 Obstructive sleep apnea (adult) (pediatric); G25.81 Restless legs syndrome; M19.90 Unspecified osteoarthritis, unspecified site; E66.9 Obesity, unspecified; Z95.5 Presence of coronary angioplasty implant and graft; Z95.1 Presence of aortocoronary bypass graft; Z79.899 Other long term (current) drug therapy; Z79.01 Long term (current) use of anticoagulants; Z87.891 Personal history of nicotine dependence; Z95.0 Presence of cardiac pacemaker
CPT/HCPCS: 71010; 78452; 80048; 82550; 83735; 83880; 84484; 85025; 85610; 85730; 93005; 93017; 93454; 99285; A9502; C1769; C1893; G0378; J0280; J1644; J2250; J2785; J3010

== ENCOUNTER 2017-01-18 13:01 | Observation (INO) | payer MEDICARE, OTHER ==
[~2017-01-18] VITALS: Ht 170.2 cm; Wt 99.9 kg
[~2017-01-18 13:01] MED LIST changes: -AUGM875T3 PO; -CITRSOL4 PO; -GNP3TAB PO; +MAGN400T14 PO; -MAGO400T2 PO; -MILKSUS PO; -ONDA1TAB16 PO; +ONDANSETRON HCL 4 MG/2 ML VIAL IV PUSH ONE; +PROPOFOL 200 MG/20 ML AMP IV ONE
[2017-01-18 13:07] VITALS: TEMP 98.9
[2017-01-18 13:10] VITALS: BP 141/77; PULSE 70; RESP 18; O2SAT 97
--- NOTE | 2017-01-18 13:11 | PD ---
HPI Chief Complaint: Complaint Time Seen by Provider: 13:08 Travel History International Travel<30 days: No Contact w/Intl Traveler<30days: No Traveled to known affect area: No History of Present Illness HPI PATIENT STATES THAT HE HAS DR SKY UROLOGIST WHO FOLLOWS HIM FOR URINARY RETENTION PROBLEMS...TODAY WHILE AT [facility], HE EXPERIENCED URINARY RETENTION AND NURSING STAFF WAS UNABLE TO PLACE ONE THERE, C/O SUPRAPUBIC PRESSURE, 5/10, IMPROVES WITH STRAIGHT CATH OR CATH PLACEMENT. DENIES FEVER/N/D /V/ABD PAIN/CP/SNOW/ PFSH Past Medical History Hx Anticoagulant Therapy: Yes (XARELTO) Arthritis: Yes Asthma: Yes Atrial Fibrillation: Yes Anxiety: No Depression: No Heart Rhythm Problems: Yes (Tachycardia, Irregular Heartbeat, Atrial Fibrillation) Cancer: No Cardiac Catheterization: Yes Cardiovascular Problems: Yes High Cholesterol: Yes Chemotherapy: No Chest Pain: No Congestive Heart Failure: Yes COPD: No Cerebrovascular Accident: No Coronary Artery Disease: Yes Diminished Hearing: No Endocrine: No Gastrointestinal Disorders: Yes GERD: Yes Genitourinary: Yes (ADMITTED DUE TO URINARY RETENTION, S/P UTI, INFERIOR MEATUS SPLIT) Headaches: No Hiatal Hernia: No Hypertension: Yes Immune Disorder: No Implanted Vascular Access Dvce: Yes Kidney Stones: No Musculoskeletal: Yes Neurologic: Yes (Restless legs syndrome) Psychiatric: No Reproductive: No Respiratory: Yes (R LOBECTOMY) Immunizations Current: Yes Migraines: No Radiation Therapy: No Renal Failure: No Seizures: No Sickle Cell Disease: No Sleep Apnea: Yes Thyroid Disease: Yes ("USED TO TAKE SYNTHROID") Ulcer: No Past Surgical History Abdominal Surgery: Yes (cholecystectomy, Blockage in dudodenal ) AICD: No Arteriovenous Shunt: No Cardiac Surgery: Yes (1989 CABG, PACEMAKER PLACEMENT) Cholecystectomy: Yes Coronary Artery Bypass Graft: Yes (x5) Coronary Stent: Yes (x1) Ear Surgery: No Endocrine Surgery: No Eye Surgery: No Genitourinary Surgery: No Gynecologic Surgery: No Insulin Pump: No Joint Replacement: No Neurologic Surgery: No Oral Surgery: No Pacemaker: Yes (Panoratio Model- [id number]) Thoracic Surgery: Yes (RIGHT LOWER LOBECTOMY) Other Surgery: Yes (cabg,pacemaker,r lower lobectomy) Social History Alcohol Use: No Tobacco Use: No Substance Use: No Allergies-Medications (Allergen,Severity, Reaction): Coded Allergies: *MDRO Multi-Drug Resistant Organism (Verified Adverse Reaction, Unknown, ) 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 Reported Meds & Prescriptions Reported Meds & Active Scripts Active Xanax (Alprazolam) 0.25 Mg Tab 0.25 Mg PO Q8H PRN Hydrocodone-Acetaminophen 10-325 mg Tab 1 Tab PO Q4H PRN Reported Escitalopram (Escitalopram Oxalate) 10 Mg Tab 10 Mg PO DAILY Potassium Chloride ER (Potassium Chloride) 20 Meq Tab 20 Meq PO DAILY Diazepam 10 Mg Tab 10 Mg PO DAILY PRN Diazepam 5 Mg Tab 5 Mg PO DAILY@0600 PRN Pyridium (Phenazopyridine HCl) 100 Mg Tab 100 Mg PO Q8H PRN Magnebind-400 Rx (Magnesium-Calcium Carbonates-Folic Acid) 400-200-1 Mg Tab 1 Tab PO DAILY Multiple Vitamin 1 Tab 1 Tab PO DAILY Bumetanide 2 Mg Tab 2 Mg PO DAILY Flomax (Tamsulosin HCl) 0.4 Mg Cap 0.4 Mg PO BID Zantac (Ranitidine HCl) 150 Mg Tab 150 Mg PO BID Requip (Ropinirole) 4 Mg Tab 6 Mg PO Q6HR PRN Dulcolax Supp (Bisacodyl) 10 Mg Supp 10 Mg MI DAILY PRN GIVE IF NO RESULTS 1 DAY AFTER MILK OF MAGNESIA Xarelto (Rivaroxaban) 10 Mg Tab 10 Mg PO DAILY Ferrous Sulfate DR (Ferrous Sulfate) 324 Mg Tabdr 324 Mg PO DAILY Exelon Patch (Rivastigmine) 4.6 mg/24 hr Patch 1 Patch T-DERMAL HS Escitalopram (Escitalopram Oxalate) 10 Mg Tab 10 Mg PO DAILY Review of Systems Except as stated in HPI: all other systems reviewed are Neg Genitourinary: Positive: Urgency, Hesitancy Physical Exam Narrative GENERAL: SKIN: Warm and dry. HEAD: Atraumatic. Normocephalic. EYES: Pupils equal and round. No scleral icterus. No injection or drainage. ENT: No nasal bleeding or discharge. Mucous membranes pink and moist. NECK: Trachea midline. No JVD. CARDIOVASCULAR: Regular rate and rhythm. RESPIRATORY: No accessory muscle use. Clear to auscultation. Breath sounds equal bilaterally. GASTROINTESTINAL: Abdomen soft, non-tender, nondistended. Hepatic and splenic margins not palpable. MUSCULOSKELETAL: Extremities without clubbing, cyanosis, or edema. No obvious deformities. NEUROLOGICAL: Awake and alert. No obvious cranial nerve deficits. Motor grossly within normal limits. Five out of 5 muscle strength in the arms and legs. Normal speech. PSYCHIATRIC: Appropriate mood and affect; insight and judgment normal. Data Data Last Documented VS Vital Signs Date Time Temp Pulse Resp B/P Pulse Ox O2 Delivery O2 Flow Rate FiO2 01/18/17 15:37 68 18 147/65 99 Room Air 01/18/17 13:07 98.9 Orders Urinary Catheter Insert/Apply (01/18/17 13:12) Tray, [place]de [place] 16fr (01/18/17 13:12) Lorazepam Inj (Ativan Inj) (01/18/17 14:15) Urinalysis - C+S If Indicated (01/18/17 15:14) ^ Other Nursing Orders (01/18/17 16:21) Diet Npo (01/18/17 Dinner) Electrocardiogram (01/18/17 16:52) Complete Blood Count With Diff (01/18/17 16:52) Basic Metabolic Panel (Bmp) (01/18/17 16:52) Prothrombin Time / Inr (Pt) (01/18/17 16:52) Act Partial Throm Time (Ptt) (01/18/17 16:52) Admit Order (Ed Use Only) (01/18/17 16:59) Labs Laboratory Tests Test 01/18/17 15:00 Urine Color YELLOW Urine Turbidity HAZY Urine pH 5.0 Urine Specific [place] 1.010 Urine Protein TRACE mg/dL Urine Glucose (UA) NEG mg/dL Urine Ketones NEG mg/dL Urine Occult Blood MOD Urine Nitrite NEG Urine Bilirubin NEG Urine Urobilinogen LESS THAN 2.0 MG/DL Urine Leukocyte Esterase LARGE Microscopic Urinalysis Comment CULT NOT INDICATED MDM Medical Decision Making Medical Screen Exam Complete: Yes Emergency Medical Condition: Yes Medical Record Reviewed: Yes Interpretation(s) PACED RHYTHM WITHOUT CONCORDANCE NOTED Differential Diagnosis UTI V URINARY RETENTION Narrative Course UA NEG FOR UTI...MULTIPLE RN'S ATTEMPTED PLACEMENT OF SANDERSON WITH COUDE, MULTIPLE SIZES AND UNABLE TO X 4...CALLED DR MCADAMS WHO STATED TO HAVE URO CART AND HE WILL COME DOWN TO PLACE ONE....AFTER ABOUT 40MINUTES DR MCADAMS ALSO UNABLE TO PLACE SANDERSON. CURRENTLY WILL BE ATTEMPTING WITH DIFFERENT INSTRUMENT. Physician Communication Physician Communication AT 1645 DR MCADAMS UNABLE TO PLACE SANDERSON, WILL PREPARE PATIENT FOR CYSTOSCOPY AND PLACEMENT, POSSIBLE BLIND END POUCH? Diagnosis Primary Impression: URINARY RETENTION (UNABLE TO PLACE SANDERSON) Facundo Prakash MD Jan 18, 2017 13:11
[2017-01-18] MEDS ORDERED: DIAZ5TAB PO (14:12)
[2017-01-18] MEDS ORDERED: DIAZ10TA PO (14:12)
[2017-01-18] MEDS ORDERED: LORazepam 2 MG/ML VIAL IM ONE (14:15)
[2017-01-18 15:37] VITALS: BP 147/65; PULSE 68; RESP 18; O2SAT 99
[2017-01-18 16:09] LABS: BLOOD, URINE MOD (NEG); GLUCOSE,URINE NEG (NEG); KETONE, URINE NEG (NEG); NITRITE,URINE NEG (NEG); URINE COLOR YELLOW (YELLW/STRAW)
[2017-01-18 16:14] LABS: COMMENT (UR) CULT NOT INDICATED; CULTURE IF INDICATED CULT NOT INDICATED
--- NOTE | 2017-01-18 16:27 | PD.CONS ---
[facility] Service Urology Consult Requested By Reason for Consult Urinary retention Primary Care Physician Unknown Diagnosis: History of Present Illness 71-year-old gentleman with history urinary retention was under the care of my associate Dr. Peña. Patient had an anterior urethral stricture which was last dilated earlier this year. Subsequent cystoscopic evaluation in the spring of this year fail to demonstrate any evidence of recurrence of the stricture. Patient reports had been doing well up until recently where by he had some difficulty voiding. Today he stated he was unable to void at all and complained of significant suprapubic pain. Attempts were made to pass a catheter at the [facility] facility where he resides as well as upon arrival to the emergency room here without success. On attempting to pass the catheter the patient was noted to have small amount of spontaneous urine output but continued to complain of significant bladder spasms. I personally attempted to place a Bustamante catheter over wire at the bedside without success. The patient either had a false passage or a significant urethral stricture. I discussed with the patient to need to bring him to the operating room suite for inspection utilizing cystoscope and possibly perform a direct visual internal urethrotomy. Review of Systems Constitutional: DENIES: Fever, Chills Gastrointestinal: COMPLAINS OF: Abdominal pain (lower abdomen) Genitourinary: DENIES: Hematuria Musculoskeletal: DENIES: Back pain Except as stated in HPI: all other systems reviewed are Neg Past Family Social History Past Medical History Urethral stricture formation Arthritis Atrial fibrillation Hypercholesterolemia Congestive heart failure Coronary artery disease Hypertension Bowel obstruction history Past Surgical History Dilation urethral stricture Status post CABG Status post cholecystectomy Status post bowel surgery Status post cardiac pacemaker Status post right lower lobectomy Reported Medications Refer to EMR Allergies: Coded Allergies: *MDRO Multi-Drug Resistant Organism (Verified Adverse Reaction, Unknown, ) 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 SKIN: No rashes, ecchymoses or lesions. Cool and dry. HEAD: Atraumatic. Normocephalic. No temporal or scalp tenderness. EYES: Pupils equal round and reactive. Extraocular motions intact. No scleral icterus. No injection or drainage. ENT: Nose without bleeding, purulent drainage or septal hematoma. Throat without erythema, tonsillar hypertrophy or exudate. Uvula midline. Airway patent. NECK: Trachea midline. No JVD or lymphadenopathy. Supple, nontender, no meningeal signs. CARDIOVASCULAR: Regular rate and rhythm without murmurs, gallops, or rubs. RESPIRATORY: Clear to auscultation. Breath sounds equal bilaterally. No wheezes , rales, or rhonchi. GASTROINTESTINAL: Abdomen soft, non-tender, nondistended. No hepato-splenomegaly , or palpable masses. No guarding. GENITOURINARY: No CVA tenderness. Distal urethral erosion noted. Testes bilaterally descended. MUSCULOSKELETAL: Extremities without clubbing, cyanosis, or edema. No joint tenderness, effusion, or edema noted. No calf tenderness. Negative Homans sign bilaterally. NEUROLOGICAL: Awake and alert. Cranial nerves II through XII intact. Motor and sensory grossly within normal limits. Five out of 5 muscle strength in all muscle groups. Normal speech. Lab results reviewed: Yes Laboratory Tests Test 01/18/17 15:00 Urine Color YELLOW Urine Turbidity HAZY Urine pH 5.0 Urine Specific [place] 1.010 Urine Protein TRACE Urine Glucose (UA) NEG Urine Ketones NEG Urine Occult Blood MOD Urine Nitrite NEG Urine Bilirubin NEG Urine Urobilinogen LESS THAN 2.0 Urine Leukocyte Esterase LARGE Microscopic Urinalysis Comment CULT NOT INDICATED Assessment and Plan Assessment and Plan Urologic impression: #1 acute urinary retention #2 rule out urethral stricture recurrence versus creation of a false passage Plan: #1 keep patient nothing by mouth #2 bring the patient to the operating room suite for cystoscopic evaluation and possible direct visual internal urethrotomy. #3 risks and benefits discussed with patient Bong Lee MD Jan 18, 2017 16:26
[2017-01-18] MEDS ORDERED: POTA-163 PO (16:57)
[2017-01-18] MEDS ORDERED: ESCI10TA PO (16:57)
[2017-01-18 17:13] LABS: AUTOMATED NEUTROPHIL # 5.8 TH/MM3 (1.8-7.7); BASOPHIL # 0.1 TH/MM3 (0-0.2); BASOPHIL % 0.7 % (0.0-2.0); HEMATOCRIT 34.2 % (39.0-51.0); HEMO FLAGS DIFF FINAL; LYMPH % 12.1 % (9.0-44.0); LYMPHOCYTE # 0.9 TH/MM3 (1.0-4.8); MEAN CELL VOLUME 94.1 FL (80.0-100.0); MEAN CORPUSCULAR HEMOGLOBIN 32.4 PG (27.0-34.0); MEAN CORPUSCULAR HGB CONC 34.5 % (32.0-36.0); MONO % 10.4 % (0.0-8.0); NEUT % 76.8 % (16.0-70.0); PLATELET COUNT 154 TH/MM3 (150-450); RED BLOOD COUNT 3.63 MIL/MM3 (4.50-5.90); WHITE BLOOD COUNT 7.5 TH/MM3 (4.0-11.0)
[2017-01-18 17:22] LABS: APTT (PATIENT) 29.3 SEC (24.3-30.1); INTERNATIONAL NORMALIZED RATIO 1.1 RATIO; PROTHROMBIN TIME - PATIENT 12.1 SEC (9.8-11.6)
[2017-01-18 17:34] LABS: POTASSIUM 4.5 MEQ/L (3.5-5.1)
[2017-01-18 21:00] VITALS: BP 209/96; PULSE 68; RESP 16; O2SAT 97
[2017-01-18] MEDS ORDERED: KETAMINE HCL 500 MG/5 ML VIAL ONE (22:11)
[2017-01-18 22:45] VITALS: BP 171/76; PULSE 72; RESP 20; TEMP 98.4; O2SAT 98
--- NOTE | 2017-01-19 00:08 | PD.OP ---
Operative Report Date of Surgery: Jan 19, 2017 Preoperative Diagnosis: (1) Urinary retention (2) Urethral stricture Postoperative Diagnosis: (1) Urinary retention (2) Urethral stricture Procedure: Cystoscopy and sequential dilation of urethral stricture formation Anesthesia: General Surgeon: Bong Lee Senior Water/Wastewater Engineer(s): None Operation and Findings: Indication for procedure: Case of a pleasant 71-year-old gentleman with history of urethral stricture disease who presented to the emergency room in urinary retention. Multiple attempts were made to pass an indwelling Bustamante catheter back at the retirement as well as by the emergency room staff without success. I also attempted to pass a Bustamante catheter in the emergency room and met significant resistance. Patient presents now for further urologic workup and management to include cystoscopy and dilation of a urethral stricture if present. Please note the operating room did not have the straight or half-yuen blade for the internal urethrotome device available. Operative procedure in detail: Patient was brought to the operating suite and placed supine on cystoscopy table. He was then placed under general anesthesia. He was then repositioned in the dorsolithotomy position and prepped and draped in normal sterile fashion. After an appropriate timeout was undertaken I proceeded with cystoscopic evaluation utilizing the internal urethrotome sheath and lines as the standard cystoscope set was unavailable. The patient was noted to have a bulbar urethral stricture with a pinhole size opening. I next passed a 0.35 wire through this opening and withdrew the internal urethrotome. Utilizing the Bard disposable kit with disposable male dilators, I proceeded with sequential dilation of the stricture starting at 12 Spanish and dilating to 18 Spanish. An 18 Spanish [place] Bustamante was then passed over the wire and the wire withdrawn. 10 cc of sterile water was instilled into the Bustamante balloon. There was subsequent evacuation of clear yellow urine. The patient tolerated the procedures without complications and was transferred to the PACU in satisfactory condition. Bong Lee MD Jan 19, 2017 00:07
[2017-01-19] MEDS ORDERED: BISACODYL 10 MG SUPP RECTAL PRN (00:15)
[2017-01-19] MEDS ORDERED: oxyCODONE/ACETAMINOPHEN 5 MG/325 MG TAB PO PRN ×2 (00:15)
[2017-01-19] MEDS ORDERED: PHENAZOPYRIDINE HCL 100 MG TAB PO PRN (00:15)
[2017-01-19] MEDS ORDERED: ONDANSETRON HCL 4 MG/2 ML VIAL IV PUSH PRN (00:15)
[2017-01-19] MEDS ORDERED: ALPRAZolam 0.25 MG TAB PO PRN (00:15)
[2017-01-19] MEDS ORDERED: CIPR-9 PO (00:21)
[2017-01-19] MEDS ORDERED: PERC5TAB12 PO (00:21)
[2017-01-19] MEDS ORDERED: DO NOT ADM ANY ANTICOAGULANT DRUGS PRN (00:30)
[2017-01-19] MEDS: CIPROFLOXACIN 500 MG TAB PO SCH ×2 (01:45→09:34)
[2017-01-19 06:26] VITALS: BP 133/61; PULSE 55; RESP 17; TEMP 98.5; O2SAT 99
[2017-01-19 08:00] VITALS: BP 135/63; PULSE 62; RESP 18; TEMP 98.5; O2SAT 92
[2017-01-19] MEDS ORDERED: [UNRECOGNIZED DRUG - OTHER] PO SCH (09:00)
[2017-01-19] MEDS ORDERED: MULTIVITAMIN TAB PO SCH (09:00)
[2017-01-19] MEDS ORDERED: FAMOTIDINE 20 MG TAB PO SCH (09:00)
[2017-01-19] MEDS ORDERED: TAMSULOSIN HCL 0.4 MG CAP PO SCH (09:00)
[2017-01-19] MEDS ORDERED: ESCITALOPRAM OXALATE 10 MG TAB PO SCH (09:00)
[2017-01-19] MEDS ORDERED: POTASSIUM CHLORIDE 20 MEQ CONTROLLED RELEASE TAB PO SCH (09:00)
[2017-01-19] MEDS ORDERED: BUMETANIDE 1 MG TAB PO SCH (09:00)
[2017-01-19] MEDS ORDERED: FERROUS SULFATE 325 MG (65 MG ELEMENTAL IRON) TAB PO SCH (13:00)
--- NOTE | 2017-01-19 15:56 | EKG ---
Date Performed: 01/18/2017 Time Performed: 17:05:24 PTAGE: 71 years EKG: AV PACEMAKER WITH 100% CAPTURE WITH RATE OF 71 Since previous tracing, no significant berrios e noted ABNORMAL RHYTHM ECG PREVIOUS TRACING 01/02/2017 21.45.24 DOCTOR: Rui Martinez Interpretating Date/Time 01/19/2017 15:54:55
[2017-01-19] MEDS ORDERED: RIVASTIGMINE 4.6 MG/24 HOUR PATCH T-DERMAL SCH (21:00)
== END 2017-01-19 10:46 ==
LOC: NEPC 13:01 → HSDC 17:01 → NEDA 17:09 → HSDC 01-19 00:16 → N05A 01-19 01:10
PROVIDERS: ADMIT Urology; ATTEND Urology
PROC: 0T7D8DZ Dilation of Urethra with Intraluminal Device, Via Natural or Artificial Opening Endoscopic (ICD-10-PCS; principal; 2017-01-18 23:10)
DX: N35.9 Urethral stricture, unspecified (principal); R33.9 Retention of urine, unspecified; I48.91 Unspecified atrial fibrillation; E78.00 Pure hypercholesterolemia, unspecified; I25.10 Atherosclerotic heart disease of native coronary artery without angina pectoris; Z95.1 Presence of aortocoronary bypass graft; I11.0 Hypertensive heart disease with heart failure; I50.9 Heart failure, unspecified; J45.909 Unspecified asthma, uncomplicated; Z79.01 Long term (current) use of anticoagulants; K21.9 Gastro-esophageal reflux disease without esophagitis; G25.81 Restless legs syndrome; E07.9 Disorder of thyroid, unspecified; M19.90 Unspecified osteoarthritis, unspecified site; G47.30 Sleep apnea, unspecified; Z87.440 Personal history of urinary (tract) infections; Z95.0 Presence of cardiac pacemaker; Z79.899 Other long term (current) drug therapy; R94.31 Abnormal electrocardiogram [ECG] [EKG]
CPT/HCPCS: 00910; 51703; 52281; 80048; 81001; 85025; 85610; 85730; 93005; 96372; 99285; G0378; J2060; J2405; J3010

== ENCOUNTER → 2017-03-10 | Outpatient (CLI) | payer MEDICARE, OTHER ==
[~2017-03-10] MED LIST changes: -BENZ1CAP34 PO; -DULC10SU3 PR; +HYDR-3516 PO; -HYDR-3583 PO; -ONDANSETRON HCL 4 MG/2 ML VIAL IV PUSH ONE; +PERC5TAB12 PO; -PROPOFOL 200 MG/20 ML AMP IV ONE; -RIVA4.6T T-DERMAL
--- NOTE | 2017-03-17 10:37 | RSPPFT ---
DATE OF PROCEDURE: 03/10/17 COMMENTS: Spirometry demonstrates an FEV1` of 1.5 at 60% of predicted, FVC of 2.1 at 62%, FEF 25-75 is 50%. Post-bronchodilator study demonstrated mild improvements in the FEV1 and FEF 25-75. Lung volumes demonstrated a raised RV/TLC ratio indicating hyperinflation and air trapping. Airways resistance is increased. Diffusion capacity is severely reduced. Flow volume loops are suggestive of a restrictive pattern. IMPRESSION: 1. Moderate obstructive disease. 2. Additional moderate restrictive disease. 3. Significant response to use of bronchodilator indicating some reversibility. 4. Severe loss in diffusion capacity.
== END ==
LOC: HRSP 10:30
DX: R06.00 Dyspnea, unspecified (principal)
CPT/HCPCS: 94060; 94726; 94729

== ENCOUNTER 2017-06-29 17:01 | Observation (INO) | payer MEDICARE, OTHER ==
[~2017-06-29] VITALS: Ht 170.2 cm; Wt 105.0 kg
[~2017-06-29 17:01] MED LIST changes: +LIDOCAINE HCL 1% PF 5 ML SYRINGE OTHER ONE; +ONDANSETRON HCL 4 MG/2 ML VIAL IV PUSH ONE; +PHENYLEPH/NS 1000 MCG/10 ML SYR IV ONE; +PROPOFOL 200 MG/20 ML AMP IV ONE; +ceFAZolin INJ 1,000 MG VIAL IV ONE; +ePHEDrine/NS 25 MG/5 ML SYRINGE IV ONE
[2017-06-29 17:17] VITALS: BP 138/62; PULSE 85; RESP 20; TEMP 98.8
[2017-06-29 17:22] VITALS: BP 165/70; PULSE 65; RESP 20; TEMP 98.8; O2SAT 98
[2017-06-29] MEDS ORDERED: MORPHINE SULFATE 2 MG/ML INJ IV PUSH ONE (18:30)
[2017-06-29] MEDS ORDERED: MORPHINE SULFATE 4 MG/ML INJ IV PUSH ONE (18:30)
--- NOTE | 2017-06-29 18:30 | PD ---
HPI Chief Complaint: Complaint Time Seen by Provider: 17:31 Travel History International Travel<30 days: No Contact w/Intl Traveler<30days: No Traveled to known affect area: No History of Present Illness HPI 72 old man with a history of urinary retention and urethral stricture presents to the ED with complaint of inability to urinate. He usually uses intermittent self catheter, sounding emily for dilation at home, and has been doing okay until the past couple days. He said worsening difficulty urinating and now inability urinate since this morning. He has pain and spasms in his lower abdomen. No other complaints. 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 Reported Meds & Prescriptions Reported Meds & Active Scripts Active Percocet (Oxycodone-Acetaminophen) 5-325 mg Tab 1-2 Tab PO Q6H PRN Xanax (Alprazolam) 0.25 Mg Tab 0.25 Mg PO Q8H PRN Reported Hydrocodone-Acetaminophen 5-325 mg Tab 1 Tab PO DIRECTED PRN Escitalopram (Escitalopram Oxalate) 10 Mg Tab 10 Mg PO DAILY Potassium Chloride ER (Potassium Chloride) 20 Meq Tab 20 Meq PO DAILY Pyridium (Phenazopyridine HCl) 100 Mg Tab 100 Mg PO Q8H PRN Magnebind-400 Rx (Magnesium-Calcium Carbonates-Folic Acid) 400-200-1 Mg Tab 1 Tab PO DAILY Multiple Vitamin 1 Tab 1 Tab PO DAILY Bumetanide 2 Mg Tab 2 Mg PO DAILY Flomax (Tamsulosin HCl) 0.4 Mg Cap 0.4 Mg PO BID Zantac (Ranitidine HCl) 150 Mg Tab 150 Mg PO BID Requip (Ropinirole) 4 Mg Tab 6 Mg PO Q6HR PRN Xarelto (Rivaroxaban) 10 Mg Tab 10 Mg PO DAILY Ferrous Sulfate DR (Ferrous Sulfate) 324 Mg Tabdr 324 Mg PO DAILY Review of Systems Except as stated in HPI: all other systems reviewed are Neg Physical Exam Narrative GENERAL: Well-appearing 72-year-old man, uncomfortable nontoxic. SKIN: Focused skin assessment warm/dry. HEAD: Atraumatic. Normocephalic. EYES: Pupils equal and round. No scleral icterus. No injection or drainage. ENT: No nasal bleeding or discharge. Mucous membranes pink and moist. NECK: Trachea midline. No JVD. CARDIOVASCULAR: Regular rate and rhythm. No murmur appreciated. RESPIRATORY: No accessory muscle use. Clear to auscultation. Breath sounds equal bilaterally. GASTROINTESTINAL: Abdomen is obese and soft. Moderate lower abdominal tenderness. : Normal external male genitalia. MUSCULOSKELETAL: No obvious deformities. Data Data Last Documented VS Vital Signs Date Time Temp Pulse Resp B/P (MAP) Pulse Ox O2 Delivery O2 Flow Rate FiO2 06/29/17 17:22 20 06/29/17 17:22 98.8 65 165/70 (101) 98 Room Air Orders Orders Basic Metabolic Panel (Bmp) (06/29/17 17:45) Iv Access Insert/Monitor (06/29/17 17:45) Urinalysis - C+S If Indicated (06/29/17 17:45) Complete Blood Count With Diff (06/29/17 18:15) Electrocardiogram (06/29/17 ) Morphine Inj (Morphine Inj) (06/29/17 18:30) Morphine Inj (Morphine Inj) (06/29/17 18:30) Diet Npo (06/29/17 Dinner) Consent (06/29/17 18:39) Electrocardiogram (06/29/17 ) Admit Order (Ed Use Only) (06/29/17 ) Labs Laboratory Tests Test 06/29/17 18:00 White Blood Count 6.2 TH/MM3 Red Blood Count 3.41 MIL/MM3 Hemoglobin 11.0 GM/DL Hematocrit 32.0 % Mean Corpuscular Volume 93.7 FL Mean Corpuscular Hemoglobin 32.1 PG Mean Corpuscular Hemoglobin Concent 34.3 % Red Cell Distribution Width 13.9 % Platelet Count 192 TH/MM3 Mean Platelet Volume 9.0 FL Neutrophils (%) (Auto) 77.7 % Lymphocytes (%) (Auto) 15.7 % Monocytes (%) (Auto) 5.5 % Eosinophils (%) (Auto) 0.0 % Basophils (%) (Auto) 1.1 % Neutrophils # (Auto) 4.8 TH/MM3 Lymphocytes # (Auto) 1.0 TH/MM3 Monocytes # (Auto) 0.3 TH/MM3 Eosinophils # (Auto) 0.0 TH/MM3 Basophils # (Auto) 0.1 TH/MM3 CBC Comment DIFF FINAL Differential Comment Blood Urea Nitrogen 23 MG/DL Creatinine 1.27 MG/DL Random Glucose 106 MG/DL Calcium Level 8.6 MG/DL Sodium Level 136 MEQ/L Potassium Level 4.2 MEQ/L Chloride Level 104 MEQ/L Carbon Dioxide Level 26.8 MEQ/L Anion Gap 5 MEQ/L Estimat Glomerular Filtration Rate 55 ML/MIN MDM Medical Decision Making Medical Screen Exam Complete: Yes Emergency Medical Condition: Yes Differential Diagnosis Urethral obstruction, urethral stricture, bladder outlet obstruction, prostate obstruction, other Narrative Course Medical decision making 72 old male presents ED with inability to urinate. I tried unsuccessfully labs pass Bustamante catheter. Needed or intervention in the past. Spoke with urology, will take to the OR. Procedures Procedure Narrative Bustamante catheter placement: Attempted to place Bustamante catheter at the bedside. Using sterile technique, attempted to place initially a 14 Slovenian coud catheter, followed by 12 Slovenian catheter, well by an 18 Slovenian coud catheter, all unsuccessful. No bleeding. No other apparent complication. Diagnosis Primary Impression: Acute urinary obstruction Alphonso Goodwin MD Jun 29, 2017 18:30
[2017-06-29 18:36] LABS: AUTOMATED NEUTROPHIL # 4.8 TH/MM3 (1.8-7.7); BASOPHIL # 0.1 TH/MM3 (0-0.2); BASOPHIL % 1.1 % (0.0-2.0); LYMPH % 15.7 % (9.0-44.0); MEAN CELL VOLUME 93.7 FL (80.0-100.0); MEAN CORPUSCULAR HEMOGLOBIN 32.1 PG (27.0-34.0); MEAN CORPUSCULAR HGB CONC 34.3 % (32.0-36.0); MONO % 5.5 % (0.0-8.0); MONOCYTE # 0.3 TH/MM3 (0-0.9); NEUT % 77.7 % (16.0-70.0); PLATELET COUNT 192 TH/MM3 (150-450); RED BLOOD COUNT 3.41 MIL/MM3 (4.50-5.90); RED CELL DISTRIBUTION WIDTH 13.9 % (11.6-17.2); WHITE BLOOD COUNT 6.2 TH/MM3 (4.0-11.0)
[2017-06-29 18:54] LABS: BICARBONATE 26.8 MEQ/L (21.0-32.0); CALCIUM 8.6 MG/DL (8.5-10.1); CREATININE 1.27 MG/DL (0.60-1.30)
--- NOTE | 2017-06-29 19:40 | PD.CONS ---
HPI Service Urology Consult Requested By Reason for Consult Urinary Retention Primary Care Physician Sarath Bob MD Diagnosis: History of Present Illness 72 yo male h/o urethral stricture s/p dilation in past, on CIC, presents to ER today with inability to urinate or pass catheter. He has not had any issues up until 2 days ago when he slowly started having trouble passing his catheter up until today when he has been unsuccessful. He feels the urge to void but cannot start his stream. He is very uncomfortable. In the ER, a bladder scan showed greater than 350 ml. Multiple attempts were made to pass a catheter of different sizes, but failed. Urology was subsequently consulted. Currently, denies fevers, chills, nausea, vomiting, flank pain. He had a similar situation happen in December 2016 which required operative intervention by Dr. Lee. He takes Xarelto for atrial fibrillation. 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 SKIN: No rashes, ecchymoses or lesions. Cool and dry. HEAD: Atraumatic. Normocephalic. No temporal or scalp tenderness. EYES: Pupils equal round and reactive. Extraocular motions intact. No scleral icterus. No injection or drainage. ENT: Nose without bleeding, purulent drainage or septal hematoma. Throat without erythema, tonsillar hypertrophy or exudate. Uvula midline. Airway patent. NECK: Trachea midline. No JVD or lymphadenopathy. Supple, nontender, no meningeal signs. CARDIOVASCULAR: Regular rate and rhythm without murmurs, gallops, or rubs. RESPIRATORY: Clear to auscultation. Breath sounds equal bilaterally. No wheezes , rales, or rhonchi. GASTROINTESTINAL: Abdomen soft, non-tender, nondistended. No hepato-splenomegaly , or palpable masses. No guarding. Bladder palpable GENITOURINARY: penis circumcised, testes without mass. No CVAT tenderness. MUSCULOSKELETAL: Extremities without clubbing, cyanosis, or edema. No joint tenderness, effusion, or edema noted. No calf tenderness. Negative Homans sign bilaterally. NEUROLOGICAL: Awake and alert. Cranial nerves II through XII intact. Motor and sensory grossly within normal limits. Five out of 5 muscle strength in all muscle groups. Normal speech. Lab results reviewed: Yes Laboratory Tests Test 06/29/17 18:00 White Blood Count 6.2 Red Blood Count 3.41 Hemoglobin 11.0 Hematocrit 32.0 Mean Corpuscular Volume 93.7 Mean Corpuscular Hemoglobin 32.1 Mean Corpuscular Hemoglobin Concent 34.3 Red Cell Distribution Width 13.9 Platelet Count 192 Mean Platelet Volume 9.0 Neutrophils (%) (Auto) 77.7 Lymphocytes (%) (Auto) 15.7 Monocytes (%) (Auto) 5.5 Eosinophils (%) (Auto) 0.0 Basophils (%) (Auto) 1.1 Neutrophils # (Auto) 4.8 Lymphocytes # (Auto) 1.0 Monocytes # (Auto) 0.3 Eosinophils # (Auto) 0.0 Basophils # (Auto) 0.1 CBC Comment DIFF FINAL Differential Comment Blood Urea Nitrogen 23 Creatinine 1.27 Random Glucose 106 Calcium Level 8.6 Sodium Level 136 Potassium Level 4.2 Chloride Level 104 Carbon Dioxide Level 26.8 Anion Gap 5 Estimat Glomerular Filtration Rate 55 Result Diagram: 06/29/17 1800 06/29/17 1800 Assessment and Plan Assessment and Plan 72 yo male h/o urethral stricture presents with acute onset of urinary retention -NPO -To OR this evening for cystoscopy, possible urethral dilation, catheter placement. Vernon Graves MD Jun 29, 2017 19:40
[2017-06-29] MEDS ORDERED: DO NOT ADM ANY ANTICOAGULANT DRUGS PRN (20:15)
[2017-06-29] MEDS: oxyCODONE/ACETAMINOPHEN 5 MG/325 MG TAB PO PRN (22:52)
[2017-06-30] VITALS: BP 104/53; PULSE 72; RESP 18; TEMP 101.6; O2SAT 98
[2017-06-30] MEDS ORDERED: ACETAMINOPHEN 325 MG TAB PO SCH ×2 (02:30→16:00)
[2017-06-30 02:59] VITALS: TEMP 100
[2017-06-30] MEDS: ceFAZolin 1,000 MG/NS 100 ML IV SCH ×4 (03:11→12:49)
[2017-06-30] MEDS: oxyCODONE/ACETAMINOPHEN 5 MG/325 MG TAB PO PRN (04:52)
[2017-06-30 05:36] VITALS: BP 126/59; PULSE 64; RESP 18; TEMP 99.4; O2SAT 94
--- NOTE | 2017-06-30 06:00 | MP ---
cc: KATHARINA HARVEY MD DATE OF OPERATION 06/29/2017 PREOPERATIVE DIAGNOSES 1. History of urethral stricture. 2. Urinary retention. POSTOPERATIVE DIAGNOSES 1. History of urethral stricture. 2. Urinary retention. PROCEDURE PERFORMED 1. Cystourethroscopy 2. Urethral dilation. 3. Insertion of Bustamante catheter. SURGEON MD Star ANESTHESIA General. COMPLICATIONS None. PREOP ANTIBIOTICS Ancef 2 grams IV. DRAINS 18-Bolivian Councill-tip catheter to gravity drainage. SPECIMENS None. DISPOSITION Stable to recovery. INDICATIONS The patient is a 72-year-old male with a history of urethral stricture disease on intermittent catheterization, presented to the ER earlier this evening with inability to cath himself over the past 24 hours. Bladder scan was done which showed greater than 350 mL. Multiple attempts were made to pass a catheter in the ER but were unsuccessful. Due to his history it was then decided to take him to the operating room for cystoscopy and catheter placement under a general anesthetic. After the risks, benefits and alternatives were explained, the patient the patient elected to proceed and informed consent was obtained. DETAILS OF PROCEDURE The patient was properly identified, brought back to the Cystoscopy Suite, laid supine on the cystoscopy table. Proper time-out was performed under the direction of Anesthesiology. The patient was induced under general aesthetic. Preoperative antibiotics in the form of Ancef 2 grams IV was given within one hour to the start of the procedure. The patient was then placed in dorsal lithotomy position, prepped and draped in normal sterile surgical fashion. Using a rigid cyst cystoscope, I then entered into his urethra where I came across a pinpoint bulbar urethral stricture. At this time a 0.035 guidewire was passed under direct visualization into the patient's bladder. The rigid cystoscope was removed. Using serial dilators, he was serially dilated all the way up, beginning with a 12-Bolivian up to a 20-Bolivian. Each dilation was quite successful and clear urine returned each time. Following dilation all the way up to a 20-Bolivian, I then passed a 16-Bolivian Councill-tip catheter over the wire into the patient's bladder. The wire was removed and clear, yellow urine returned. The catheter was then secured. This concluded the procedure. The patient was extubated and sent to Recovery in stable condition. He will be discharged home per PACU protocol. He will follow up with Dr. Lee as an outpatient for void trial. Recommend keeping the Bustamante catheter in place for a minimal of 5 days. He likely will need to continue CIC at least once a day to prevent stricture from forming. Otherwise he may benefit from catheter drainage from a suprapubic catheter. MD NORMA Abbott/DANETTE /7:58 PM /5:31 AM
[2017-06-30 08:20] VITALS: BP 131/63; PULSE 65; RESP 18; TEMP 98.3; O2SAT 94
[2017-06-30 12:14] VITALS: BP 131/62; PULSE 66; RESP 18; TEMP 101.2; O2SAT 94
--- NOTE | 2017-06-30 12:15 | HHI.PR ---
Subjective Patient symptoms today doing well. denies pain. Wants to go home. Objective Vital Signs Vital Signs Date Time Temp Pulse Resp B/P (MAP) Pulse Ox O2 Delivery O2 Flow Rate FiO2 06/30/17 08:20 98.3 65 18 131/63 (85) 94 06/30/17 05:36 99.4 64 18 126/59 (81) 94 06/30/17 02:59 100.0 06/30/17 00:00 101.6 72 18 104/53 (70) 98 06/29/17 21:00 60 14 157/69 (98) 98 Nasal Cannula 2 06/29/17 20:45 63 20 159/71 (100) 98 Nasal Cannula 2 06/29/17 20:30 63 20 186/76 (112) 100 Nasal Cannula 2 06/29/17 20:18 64 20 160/70 (100) 100 Nasal Cannula 2 06/29/17 20:15 98.8 72 21 146/65 (92) 100 Nasal Cannula 3 06/29/17 17:22 20 06/29/17 17:22 98.8 65 20 165/70 (101) 98 Room Air 06/29/17 17:17 98.8 85 20 138/62 (87) Intake & Output 06/30/17 06/30/17 07:00 19:00 Intake Total 500 ml Output Total 400 ml Balance 100 ml Intake Other 500 ml Output Urine Total 400 ml Estimated Blood Loss 0 ml Bladder Scan Volume Amount 350 ml # Bowel Movements 0 Result Diagram: 06/29/17 1800 06/29/17 1800 Objective Remarks NAD. A/O x 3 abd christel urine pink Medications and IVs Current Medications Medications (Trade) Dose Ordered Sig/Elmer Route Start Time Stop Time Status Last Admin Miscellaneous Information ALL NURSING DEPARTME... UNSCH PRN .XX 06/29/17 20:15 06/30/17 20:14 (Percocet 5-325 Mg) 2 tab Q4H PRN PO 06/29/17 22:45 06/30/17 04:52 Cefazolin Sodium 1000 mg/Sodium Chloride 100 ml @ 200 mls/hr Q8H IV 06/30/17 03:00 06/30/17 03:11 Assessment and Plan Assessment and Plan 72 yo male h/o urethral stricture presents with acute onset of urinary retention s/p cystoscopy, urethral dilation, bruno catheter placement, POd#1 -d/c home with bruno -Scripts in chart -F/U with Dr. Peña 1-2 weeks for void trial. Vernon Graves MD Jun 30, 2017 12:15
--- NOTE | 2017-06-30 12:17 | HHI.DS ---
Discharge Summary Admission Date Jun 29, 2017 at 21:09 Discharge Date: Jun 30, 2017 Admitting Diagnosis urethral stricture, bladder outlet obstruction Procedures cystoscopy, urethral dilation, bruno catheter placement. CBC/BMP: 06/29/17 1800 06/29/17 1800 Significant Findings Laboratory Tests Test 06/29/17 18:00 Red Blood Count 3.41 MIL/MM3 (4.50-5.90) Hemoglobin 11.0 GM/DL (13.0-17.0) Hematocrit 32.0 % (39.0-51.0) Neutrophils (%) (Auto) 77.7 % (16.0-70.0) Blood Urea Nitrogen 23 MG/DL (7-18) Estimat Glomerular Filtration Rate 55 ML/MIN (>89) Hospital Course 72 yo male admitted for observation following urethral dilation, catheter placement. Did well overnight. Denies pain. D/C home on POD#1 with bruno catheter. Pt Condition on Discharge: Fair Discharge Disposition: Discharge to SNF Discharge Instructions DIET: Follow Instructions for: Heart Healthy Diet Activities you can perform: Regular-No Restrictions Continued Medications: Alprazolam (Xanax) 0.25 Mg Tab 0.25 MG PO Q8H PRN for ANXIETY, #10 TAB 0 Refills Bumetanide (Bumetanide) 2 Mg Tab 2 MG PO DAILY, TAB 0 Refills Escitalopram (Escitalopram) 10 Mg Tab 10 MG PO DAILY, #0 TAB [address] (Ferrous Sulfate DR) 324 Mg Tabdr 324 MG PO DAILY for Nutritional Supplement, #30 TAB 0 Refills Hydrocodone-Acetaminophen (Hydrocodone-Acetaminophen) 5-325 mg Tab 1 TAB PO DIRECTED PRN for PAIN, TAB 0 Refills Magnesium-Calcium Carbonates-Folic Acid (Magnebind-400 Rx) 400-200-1 Mg Tab 1 TAB PO DAILY for Nutritional Supplement, #90 TAB 0 Refills Multiple Vitamin (Multiple Vitamin) 1 Tab 1 TAB PO DAILY for Nutritional Supplement, TAB 0 Refills Phenazopyridine (Pyridium) 100 Mg Tab 100 MG PO Q8H PRN for DYSURIA, TAB 0 Refills Potassium Chloride ER (Potassium Chloride ER) 20 Meq Tab 20 MEQ PO DAILY for Electrolyte Replacement, #0 TAB 0 Refills Ranitidine (Zantac) 150 Mg Tab 150 MG PO BID for Reflux, #60 TAB 0 Refills Rivaroxaban (Xarelto) 10 Mg Tab 10 MG PO DAILY for Blood Clot Prevention, TAB 0 Refills Ropinirole (Requip) 4 Mg Tab 6 MG PO Q6HR PRN for SEVERE PAIN, #90 TAB 0 Refills Tamsulosin (Flomax) 0.4 Mg Cap 0.4 MG PO BID for Manage Prostate Problems, #30 CAP 0 Refills Discontinued Medications: Oxycodone-Acetaminophen (Percocet) 5-325 mg Tab 1-2 TAB PO Q6H PRN for PAIN, #30 TAB 0 Refills Vernon Graves MD Jun 30, 2017 12:17
[2017-06-30 15:47] VITALS: TEMP 102.7
--- NOTE | 2017-06-30 18:59 | EKG ---
Date Performed: 06/29/2017 Time Performed: 18:43:48 PTAGE: 72 years EKG: ELECTRONIC VENTRICULAR PACEMAKER No further analysis, recommend a new pacemaker PREVIOUS TRACING : 01/18/2017 17.05 DOCTOR: Katie Martin Interpretating Date/Time 07/01/2017 08:16:26
--- NOTE | 2017-06-30 19:01 | EKG ---
Date Performed: 06/29/2017 Time Performed: 18:44:35 PTAGE: 72 years EKG: ELECTRONIC ATRIAL PACEMAKER ELECTRONIC VENTRICULAR PACEMAKER WITH PVCs Compared to prior tr acing no significant change ABNORMAL RHYTHM ECG PREVIOUS TRACING : 06/29/2017 18.43 DOCTOR: Katie Martin Interpretating Date/Time 06/30/2017 18:59:59
== END 2017-06-30 16:46 ==
LOC: NEPD 17:01 → HSDC 19:02 → NEPFCDU 21:09
PROVIDERS: ADMIT Urology; ATTEND Urology
DX: N35.9 Urethral stricture, unspecified (principal); N13.9 Obstructive and reflux uropathy, unspecified; N32.0 Bladder-neck obstruction; I48.91 Unspecified atrial fibrillation; I11.0 Hypertensive heart disease with heart failure; I50.9 Heart failure, unspecified; I25.10 Atherosclerotic heart disease of native coronary artery without angina pectoris; E78.00 Pure hypercholesterolemia, unspecified; G47.33 Obstructive sleep apnea (adult) (pediatric); Z79.01 Long term (current) use of anticoagulants; Z95.1 Presence of aortocoronary bypass graft
CPT/HCPCS: 00910; 52281; 80048; 85025; 93005; 96365; 96375; 99285; C1769; G0378; J0690; J2270; J2370; J2405; J3010

== ENCOUNTER 2017-08-15 12:41 | Inpatient (IN) | payer MEDICARE, OTHER ==
[~2017-08-15] VITALS: Ht 170.2 cm; Wt 105.4 kg
[~2017-08-15 12:41] MED LIST changes: +ACET325C PO; +DULC10SU3 RECTAL; +FOLI-30 PO; +FURO20TA PO; -LIDOCAINE HCL 1% PF 5 ML SYRINGE OTHER ONE; +MELA3TAB23; +METH2.5T PO; +ONDA4TAB15 PO; -ONDANSETRON HCL 4 MG/2 ML VIAL IV PUSH ONE; +OXYC1TAB63 PO; -PERC5TAB12 PO; -PHENYLEPH/NS 1000 MCG/10 ML SYR IV ONE; -PROPOFOL 200 MG/20 ML AMP IV ONE; -REQU4TAB3 PO; +ROPI2TAB PO; -ceFAZolin INJ 1,000 MG VIAL IV ONE; -ePHEDrine/NS 25 MG/5 ML SYRINGE IV ONE
[2017-08-15 12:50] VITALS: BP 165/72; PULSE 60; RESP 18; O2SAT 99
[2017-08-15 12:55] VITALS: BP 165/72; PULSE 60; RESP 18; O2SAT 99
[2017-08-15] MEDS ORDERED: HYDROmorphone HCL PF 2 MG/ML VIAL IVS ONE ×2 (13:15→16:45)
[2017-08-15] MEDS ORDERED: ONDANSETRON HCL 4 MG/2 ML VIAL IV PUSH ONE (13:15)
--- NOTE | 2017-08-15 15:04 | RADRPT ---
EXAM DATE/TIME: 08/15/2017 14:31 [place] COMPARISON: No previous studies available for comparison. INDICATIONS : Pain from pressure exerted upwards on arm. MEDICAL HISTORY : None. SURGICAL HISTORY : None. ENCOUNTER: Initial ACUITY: 1 day PAIN SCORE: 10/10 LOCATION: Right shoulder. FINDINGS: 2 views of the right shoulder reveal an acute fracture involving the humeral neck. There is medial di splacement of the distal fracture fragment. Humeral head remains in contact with the glenoid. Degener ative changes at the a.c. joint. Soft tissues are unremarkable. CONCLUSION: Acute humeral neck fracture. Casey Dickey Jr., MD on August 15, 2017 at 15:02 Board Certified Radiologist. This report was verified electronically.
[2017-08-15 15:38] VITALS: BP 180/80; PULSE 60; RESP 18; O2SAT 97
[2017-08-15] MEDS ORDERED: MORPHINE SULFATE 2 MG/ML INJ IV PUSH PRN (18:15)
[2017-08-15] MEDS ORDERED: SENNOSIDES 8.6 MG TAB PO PRN (18:15)
[2017-08-15] MEDS ORDERED: ACETAMINOPHEN/HYDROcodone 325 MG/10 MG TAB PO PRN (18:15)
[2017-08-15] MEDS ORDERED: BISACODYL 10 MG SUPP RECTAL PRN (18:15)
[2017-08-15] MEDS ORDERED: ONDANSETRON HCL 4 MG/2 ML VIAL IVP PRN (18:15)
[2017-08-15] MEDS ORDERED: MAGNESIUM HYDROXIDE SUSP 30 ML CUP PO PRN (18:15)
[2017-08-15] MEDS ORDERED: NALOXONE HCL 0.4 MG/ML AMP IV PUSH PRN (18:15)
[2017-08-15] MEDS ORDERED: SODIUM CHLORIDE 0.9% FLUSH 10 ML FLUSH IV FLUSH PRN (18:15)
[2017-08-15] MEDS ORDERED: ACETAMINOPHEN/HYDROcodone 325 MG/5 MG TAB PO PRN (18:15)
[2017-08-15] MEDS ORDERED: LACTULOSE SYRUP 20 GM/30 ML CUP PO PRN (18:15)
[2017-08-15 18:48] VITALS: BP 123/55; PULSE 61; RESP 18; O2SAT 93
[2017-08-15] MEDS ORDERED: SODIUM CHLOR 0.9% 1000 ML INJ 1,000 ML IV SCH (19:00)
[2017-08-15 20:00] VITALS: BP 136/60; PULSE 60; RESP 16; TEMP 98.1; O2SAT 100
[2017-08-15] MEDS ORDERED: SODIUM CHLORIDE 0.9% FLUSH 10 ML FLUSH IV FLUSH SCH (21:00)
[2017-08-15] MEDS ORDERED: DOCUSATE SODIUM 50 MG/SENNA 8.6 MG TAB PO SCH (21:00)
[2017-08-15 21:03] VITALS: TEMP 97.6
--- NOTE | 2017-08-15 21:29 | PD.CONS ---
cc: Rui Krause MD HPI Service Orthopedic Surgeons Consult Requested By ER Staff Reason for Consult Evaluation of right proximal humerus fracture Primary Care Physician Sarath Bob MD Admission Diagnosis right humeral neck fracture, Diagnoses: (1) Closed fracture of right proximal humerus Chief Complaint: Right shoulder pain History of Present Illness This 72 year old male, [facility] resident with multiple medical problems including CHF, COPD, CAD, diabetes mellitus, obesity, GERD, and atrophic fibrillation fell injuring his right shoulder. He had pain and inability to use the extremity. The patient presented to [facility]. X-rays revealed a displaced fracture of the right humeral neck. The patient states he had normal shoulder function prior to his fall. He also is normally ambulatory despite his fractures of his distal lower extremities. Given the alternatives of the treatment he does wish to pursue surgical management. He was admitted to the medical service with orthopedic consultation requested. He denies other extremity injury at the time of his fall. Review of Systems Reviewed and well outlined in the medical record Past Family Social History Past Medical History COPD, CHF, CAD, diabetes mellitus, obesity, GERD, atrial fibrillation Past Surgical History Stent placement, pacemaker, ORIF ankle, CABG, abdominal surgery, cholecystectomy , right lower lobectomy Allergies: Coded Allergies: *MDRO Multi-Drug Resistant Organism (Verified Adverse Reaction, Unknown, ) 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 Active Ordered Medications Current Medications Medications (Trade) Dose Ordered Sig/Elmer Route Start Time Stop Time Status Last Admin Sodium Chloride 1,000 ml @ 75 mls/hr [id number] IV 08/15/17 19:00 08/15/17 20:34 (NS Flush) 2 ml UNSCH PRN IV FLUSH 08/15/17 18:15 (NS Flush) 2 ml BID IV FLUSH 08/15/17 21:00 08/15/17 20:34 (Zofran Inj) 4 mg Q6H PRN IVP 08/15/17 18:15 (Narcan Inj) 0.4 mg UNSCH PRN IV PUSH 08/15/17 18:15 (Polly-Colace) 1 tab BID PO 08/15/17 21:00 2/23/18 20:34 (Milk Of Magnesia Liq) 30 ml Q12H PRN PO 08/15/17 18:15 (Senokot) 17.2 mg Q12H PRN PO 08/15/17 18:15 (Dulcolax Supp) 10 mg DAILY PRN RECTAL 08/15/17 18:15 (Lactulose Liq) 30 ml DAILY PRN PO 08/15/17 18:15 ([place] 5-325 Mg) 1 tab Q4H PRN PO 08/15/17 18:15 ([place] 10-325 Mg) 1 tab Q6H PRN PO 08/15/17 18:15 (Morphine Inj) 1 mg Q3H PRN IV PUSH 08/15/17 18:15 Reported Meds & Active Scripts Active Reported Oxycodone-Acetaminophen 5-325 (Oxycodone HCl/Acetaminophen) 5 Mg-325 Mg Tablet 2 Tab PO Q6HR Ropinirole 2 Mg Tab 2 Mg PO BID Ondansetron (Ondansetron HCl) 4 Mg Tab 1 Tab PO Q6HR Furosemide 20 Mg Tab 20 Mg PO Q6HR Roxifol-D (Folic Acid-Cholecalciferol) 1-500 mg-Unit Tab 1 Mg PO DAILY Dulcolax Supp (Bisacodyl) 10 Mg Supp 10 Mg RECTAL DAILY PRN Acetaminophen 325 Mg Capsule 2 Tab PO Q4HR Hydrocodone-Acetaminophen 5-325 mg Tab 1 Tab PO DIRECTED PRN Escitalopram (Escitalopram Oxalate) 10 Mg Tab 10 Mg PO DAILY Potassium Chloride ER (Potassium Chloride) 20 Meq Tab 20 Meq PO DAILY Pyridium (Phenazopyridine HCl) 100 Mg Tab 100 Mg PO Q8H PRN Magnebind-400 Rx (Magnesium-Calcium Carbonates-Folic Acid) 400-200-1 Mg Tab 1 Tab PO DAILY Multiple Vitamin 1 Tab 1 Tab PO DAILY Flomax (Tamsulosin HCl) 0.4 Mg Cap 0.4 Mg PO BID Zantac (Ranitidine HCl) 150 Mg Tab 150 Mg PO BID Xarelto (Rivaroxaban) 10 Mg Tab 10 Mg PO DAILY Ferrous Sulfate DR (Ferrous Sulfate) 324 Mg Tabdr 324 Mg PO DAILY Family History Noncontributory Social History Denies tobacco and alcohol use. [facility] resident. Physical Exam Vital Signs Vital Signs Date Time Temp Pulse Resp B/P (MAP) Pulse Ox O2 Delivery O2 Flow Rate FiO2 08/15/17 21:03 97.6 08/15/17 19:45 Nasal Cannula 3.00 08/15/17 19:15 08/15/17 18:48 61 18 123/55 (77) 93 Nasal Cannula 2.00 08/15/17 15:38 60 18 180/80 (113) 97 Room Air 08/15/17 12:55 60 18 165/72 (103) 99 Room Air 08/15/17 12:55 60 18 99 Room Air 08/15/17 12:50 60 18 165/72 (103) 99 Physical Exam The patient is awake and alert and answers questions appropriately. His right upper extremity is in a sling. He has pain with any movement of the shoulder. There is no overlying skin change. He has good sensation over the deltoid. His distal neurovascular status is intact. He has no other obvious localizing signs of acute extremity injury. Imaging Last 24 hours Impressions Shoulder X-Ray 08/15/17 1307 Signed Impressions: Service Date/Time: Tuesday, August 15, 2017 14:31 - CONCLUSION: Acute humeral neck fracture. Casey Dickey Jr., MD Assessment & Plan Problem List: (1) Closed fracture of right proximal humerus ICD Codes: S42.201A - Unspecified fracture of upper end of right humerus, initial encounter for closed fracture Status: Acute (2) Hx of cardiac pacemaker ICD Codes: Z95.0 - History of cardiac pacemaker Status: Chronic (3) HTN (hypertension) ICD Codes: I10 - Hypertension Status: Chronic (4) Obesity ICD Codes: E66.9 - Obesity Status: Chronic (5) Hyperlipidemia ICD Codes: E78.5 - Hyperlipidemia Status: Chronic (6) Diabetes ICD Codes: E11.9 - Diabetes mellitus Status: Chronic (7) GERD (gastroesophageal reflux disease) ICD Codes: K21.9 - Gastroesophageal reflux disease Status: Chronic (8) CHF (congestive heart failure) ICD Codes: I50.9 - Congestive heart failure Status: Chronic (9) CAD (coronary artery disease) ICD Codes: I25.10 - Coronary artery disease Status: Chronic (10) Atrial fibrillation ICD Codes: I48.91 - Atrial fibrillation Status: Chronic Assessment and Plan The findings and alternatives to treatment were discussed. This included both operative and nonoperative. Based upon the displaced nature of the fracture and the patient's relative normal shoulder function prior to his injury, recommendations are to consider surgical management. This would include ORIF of the proximal humerus. The nature of the procedure, the risks, expected benefits, as well as the postoperative expectations were discussed with him in detail. In addition, the alternatives to treatment and risks of same were discussed. The patient acknowledges full understanding. Medical clearance is pending at this time. Rui Krause MD Aug 15, 2017 21:29
[2017-08-15] MEDS ORDERED: VANCOMYCIN INJ 1,000 MG in SODIUM CHLOR 0.9% 250 ML INJ 250 ML IV SCH (21:30)
[2017-08-15] MEDS ORDERED: ceFAZolin 2 GM PREMIX 50 ML IV SCH (21:30)
[2017-08-15] MEDS ORDERED: CHLORHEXIDINE GLUCONATE 2 % 1 PACK (2 CLOTHS) TOPICAL PRN (22:45)
[2017-08-15] MEDS ORDERED: LACTATED RINGER'S 1000 ML IV PRN (22:45)
[2017-08-15] MEDS ORDERED: POVIDONE IODINE 5% (ANTISEPSIS KIT) 4 APPLICATIONS EACH NARE PRN (22:45)
[2017-08-16] VITALS (7 sets, daily range): BP systolic 114–138; BP diastolic 53–63; PULSE 60–65; RESP 16–20; TEMP 96.3–99.1; O2SAT 96–99
--- NOTE | 2017-08-16 05:50 | HHI.HP ---
HPI Service [facility] Primary Care Physician Sarath Bob MD Admission Diagnosis right humeral neck fracture, . Diagnoses: (1) Closed fracture of right proximal humerus Chief Complaint: Fall with subsequent right upper arm pain Travel History International Travel<30 Days: No Contact w/Intl Traveler <30 Da: No Traveled to Known Affected Are: No History of Present Illness Mr. Campo is a pleasant 72-year-old male with a history of congestive heart failure, coronary artery disease status post CABG 4, GERD, atrial fibrillation on Xarelto, obstructive sleep apnea on CPAP, undergoing evaluation for pulmonary fibrosis, and urinary retention who presented to the emergency room from [facility] following a fall with subsequent right shoulder/upper arm pain. The patient was found to have a displaced fracture of the right humeral neck on x-ray and was admitted for surgical management by Dr. Krause to the hospitalist service for management of chronic medical conditions. The patient is seen in his hospital room. He reports that he had a functional [facility] and developed severe right upper arm and shoulder pain post fall. He did not hit his head or experience loss of consciousness. He reports intermittent upper right arm/shoulder pain that is brought about with movement and is a 10 out of 10. He states that is not relieved with current pain medications but does not desire to take anything new even though it is offered. He tells me it will be surgically corrected soon and that will take care of it. He reports recent decreased appetite, fatigue, and shortness of breath with dry hacking cough which she relates to a possible diagnosis of pulmonary fibrosis which is getting worked up by Dr. Manuel currently. He denies fever or chills. . Review of Systems Except as stated in HPI: all other systems reviewed are Neg Past Family Social History Past Medical History Congestive heart failure Questionable pulmonary fibrosis being worked up by Dr. Manuel Coronary artery disease status post CABG 4 GERD Atrial fibrillation on Xarelto Currently being worked up for rheumatoid arthritis by Dr. Wallace Reeceing retina left thigh status post surgical repair Urinary retention with need to self catheter every week to every month - variable Denies COPD/DM . Past Surgical History Stent placement, pacemaker x 2, ORIF ankle, CABG x 4, abdominal surgery, cholecystectomy, right lower lobectomy for benign mass/scar tissue Reported Medications Current Medications Hydromorphone HCl (Dilaudid Pf Inj) 1 mg ONCE ONCE IVS Last administered on 13:17; Start 08/15/17 at 13:15; Stop 08/15/17 at 13:16; Status DC Ondansetron HCl (Zofran Inj) 4 mg ONCE ONCE IV PUSH Last administered on at 13:17; Start 08/15/17 at 13:15; Stop 08/15/17 at 13:16; Status DC Hydromorphone HCl (Dilaudid Pf Inj) 1 mg ONCE ONCE IVS Last administered on 16:45; Start 08/15/17 at 16:45; Stop 08/15/17 at 16:46; Status DC Ropinirole HCl (Requip) 2 mg ONCE ONCE PO Last administered on 08/15/17at 17:44 ; Start 08/15/17 at 17:15; Stop 08/15/17 at 17:16; Status DC Sodium Chloride 1,000 ml @ 75 mls/hr [id number] IV Last administered on at 20:34; Start 08/15/17 at 19:00 Sodium Chloride (NS Flush) 2 ml UNSCH PRN IV FLUSH FLUSH AFTER USING IV ACCESS ; Start 08/15/17 at 18:15 Sodium Chloride (NS Flush) 2 ml BID IV FLUSH Last administered on 08/15/17at 20: 34; Start 08/15/17 at 21:00 Ondansetron HCl (Zofran Inj) 4 mg Q6H PRN IVP NAUSEA OR VOMITING; Start at 18:15 Naloxone HCl (Narcan Inj) 0.4 mg UNSCH PRN IV PUSH SEE LABEL COMMENTS; Start at 18:15 Senna/Docusate Sodium (Polly-Colace) 1 tab BID PO Last administered on at 20:34; Start 08/15/17 at 21:00 Magnesium Hydroxide (Milk Of Magnesia Liq) 30 ml Q12H PRN PO Mild constipation ; Start 08/15/17 at 18:15 Sennosides (Senokot) 17.2 mg Q12H PRN PO Moderate constipation; Start 08/15/17 at 18:15 Bisacodyl (Dulcolax Supp) 10 mg DAILY PRN RECTAL SEVERE CONSITIPATION; Start at 18:15 Lactulose (Lactulose Liq) 30 ml DAILY PRN PO SEVERE CONSITIPATION; Start at 18:15 Acetaminophen/ Hydrocodone Bitart (Rhodes 5-325 Mg) 1 tab Q4H PRN PO PAIN SCALE 3 TO 5; Start 08/15/17 at 18:15 Acetaminophen/ Hydrocodone Bitart (Rhodes 10-325 Mg) 1 tab Q6H PRN PO PAIN SCALE 6 TO 10 Last administered on 08/16/17at 00:07; Start 08/15/17 at 18:15 Morphine Sulfate (Morphine Inj) 1 mg Q3H PRN IV PUSH BREAKTHROUGH PAIN Last administered on 08/16/17at 06:33; Start 08/15/17 at 18:15 Cefazolin Sodium/ Dextrose 50 ml @ 100 mls/hr HIGH FREQUENCY MILL OPERATOR IV ; Start 08/15/17 at 21:30; Stop 08/18/17 at 21:29 Vancomycin HCl 1000 mg/Sodium Chloride 250 ml @ 250 mls/hr HIGH FREQUENCY MILL OPERATOR IV ; Start 08/15/17 at 21:30; Stop 08/18/17 at 21:29 Lactated Ringer's 1,000 ml @ 30 mls/hr Q24H PRN IV SEE LABEL COMMENTS; Start at 22:45; Stop 08/18/17 at 22:44 Povidone Iodine (Betadine 5% Antisepsis Kit) 1 applic HIGH FREQUENCY MILL OPERATOR PRN EACH NARE SEE LABEL COMMENTS; Start 08/15/17 at 22:45; Stop 08/18/17 at 22:44 Chlorhexidine Gluconate (Chlorhexidine 2% Cloth) 3 pack HIGH FREQUENCY MILL OPERATOR PRN TOPICAL SEE LABEL COMMENTS; Start 08/15/17 at 22:45; Stop 08/18/17 at 22:44 . 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 Social History Tobacco: Quit smoking 30 years ago Alcohol: Denies Illicit Drugs: Denies . Physical Exam Vital Signs Vital Signs Date Time Temp Pulse Resp B/P (MAP) Pulse Ox O2 Delivery O2 Flow Rate FiO2 08/16/17 00:00 97.3 65 16 128/60 (82) 97 08/15/17 21:03 97.6 08/15/17 20:00 98.1 60 16 136/60 (85) 100 08/15/17 19:45 Nasal Cannula 3.00 08/15/17 19:15 08/15/17 18:48 61 18 123/55 (77) 93 Nasal Cannula 2.00 08/15/17 15:38 60 18 180/80 (113) 97 Room Air 08/15/17 12:55 60 18 165/72 (103) 99 Room Air 08/15/17 12:55 60 18 99 Room Air 08/15/17 12:50 60 18 165/72 (103) 99 Physical Exam GENERAL: This is an elderly talkative male patient, in no apparent distress. SKIN: Bilateral lower extremity wounds covered with gauze. Skin warm and dry. HEAD: Atraumatic. Normocephalic. EYES: No scleral icterus. No injection or drainage. ENT: Nose without bleeding, purulent drainage. NECK: Trachea midline. No JVD. CARDIOVASCULAR: Regular rate and rhythm without murmurs, gallops, or rubs. RESPIRATORY: Breath sounds diminished but equal bilaterally. No wheezes, rales, or rhonchi. GASTROINTESTINAL: Abdomen soft, non-tender, nondistended. No guarding. MUSCULOSKELETAL: Right arm in sling, positive movement and sensation noted. NEUROLOGICAL: Awake and alert. Motor and sensory grossly within normal limits. Normal speech. . Laboratory Laboratory Tests Test 08/16/17 06:05 Imaging Last Impressions Shoulder X-Ray 08/15/17 1307 Signed Impressions: Service Date/Time: Tuesday, August 15, 2017 14:31 - CONCLUSION: Acute humeral neck fracture. MD Geovani Plascencia Jr. VTE Risk Assessment Geovani VTE Risk Assessment: Mod/High Risk (score >= 2) Caprini Risk Assessment Model Point Value = 1 Point Value = 2 Point Value = 3 Point Value = 5 Age 41-60 Minor surgery BMI > 25 kg/m2 Swollen legs Varicose veins or History of unexplained or recurrent spontaneous Oral contraceptives or hormone replacement Sepsis (< 1 month) Serious lung disease, including pneumonia (< 1 month) Abnormal pulmonary function Acute myocardial infarction Congestive heart failure (< 1 month) History of inflammatory bowel disease Medical patient at bed rest Age 61-74 Arthroscopic surgery Major open surgery (> 45 min) Laparoscopic surgery (> 45 min) Malignancy Confined to bed (> 72 hours) Immobilizing plaster cast Central venous access Age >= 75 History of VTE Family history of VTE Factor V Leiden Prothrombin [id number] Lupus anticoagulant Anticardiolipin antibodies Elevated serum homocysteine Heparin-induced thrombocytopenia Other congenital or acquired thrombophilia Stroke (< 1 month) Elective arthroplasty Hip, pelvis, or leg fracture Acute spinal cord injury (< 1 month) Prophylaxis Regimen Total Risk Factor Score Risk Level Prophylaxis Regimen 0-1 Low Early ambulation 2 Moderate Order ONE of the following: *Sequential Compression Device (SCD) *Heparin 5000 units SQ BID 3-4 Higher Order ONE of the following medications: *Heparin 5000 units SQ TID *Enoxaparin/Lovenox 40 mg SQ daily (WT < 150 kg, CrCl > 30 mL/min) *Enoxaparin/Lovenox 30 mg SQ daily (WT < 150 kg, CrCl > 10-29 mL/min) *Enoxaparin/Lovenox 30 mg SQ BID (WT < 150 kg, CrCl > 30 mL/min) AND/OR *Sequential Compression Device (SCD) 5 or more Highest Order ONE of the following medications: *Heparin 5000 units SQ TID (Preferred with Epidurals) *Enoxaparin/Lovenox 40 mg SQ daily (WT < 150 kg, CrCl > 30 mL/min) *Enoxaparin/Lovenox 30 mg SQ daily (WT < 150 kg, CrCl > 10-29 mL/min) *Enoxaparin/Lovenox 30 mg SQ BID (WT < 150 kg, CrCl > 30 mL/min) AND *Sequential Compression Device (SCD) Assessment and Plan Problem List: (1) Closed fracture of right proximal humerus ICD Code: S42.201A - Unspecified fracture of upper end of right humerus, initial encounter for closed fracture Status: Acute Assessment and Plan Mr. Campo is a pleasant 72-year-old male with a history of congestive heart failure, coronary artery disease status post CABG 4, GERD, atrial fibrillation on Xarelto, obstructive sleep apnea on CPAP, undergoing evaluation for pulmonary fibrosis, and urinary retention who presented to the emergency room from [facility] following a fall with subsequent right shoulder/upper arm pain. The patient was found to have a displaced fracture of the right humeral neck on x-ray and was admitted for surgical management by Dr. Krause to the hospitalist service for management of chronic medical conditions. Closed fracture of right proximal humerus - Management per Dr. Krause Urinary retention requiring self-catheterization intermittently - Continue Flomax 0.4 mg by mouth twice a day - Monitor I&O carefully - at high risk for urinary retention postoperatively - discussed with nursing staff Urologist Dr. Peña - consult if needed Chronic wounds to bilateral lower extremities - Consult wound care nurse CHF - monitor I and O - resume home lasix/K+ - monitor K+ levels insurance customer service specialist Dr. Thorne - patient reports normal stress test 6 months ago atrial fibrillation - resume Xarelto per Ortho recommendations - continuous cardiac telemetry MICHAEL - resume home CPAP clinical data specialist Dr. Manuel DVT prophylaxis - resume Xarelto per Ortho recommendations Discussed Condition With Patient, RN, and Dr. Arthur Physician Certification 2 Midnight Certification Type: Admission for Inpatient Services Order for Inpatient Services The services are ordered in accordance with Medicare regulations or non- Medicare payer requirements, as applicable. In the case of services not specified as inpatient-only, they are appropriately provided as inpatient services in accordance with the 2-midnight benchmark. Estimated LOS (days): 3 days is the estimated time the patient will need to remain in the hospital, assuming treatment plan goals are met and no additional complications. Post-Hospital Plan: [facility] Chapis Mendez Aug 16, 2017 05:50
[2017-08-16] MEDS ORDERED: BISACODYL 10 MG SUPP RECTAL PRN ×2 (07:00→12:15)
[2017-08-16 07:01] LABS: AUTOMATED NEUTROPHIL # 3.7 TH/MM3 (1.8-7.7); BASOPHIL # 0.1 TH/MM3 (0-0.2); BASOPHIL % 1.1 % (0.0-2.0); EOSINOPHIL % 0.1 % (0.0-4.0); HEMATOCRIT 27.3 % (39.0-51.0); HEMOGLOBIN 9.2 GM/DL (13.0-17.0); LYMPH % 14.2 % (9.0-44.0); LYMPHOCYTE # 0.7 TH/MM3 (1.0-4.8); MEAN CELL VOLUME 92.9 FL (80.0-100.0); MEAN CORPUSCULAR HEMOGLOBIN 31.4 PG (27.0-34.0); MEAN CORPUSCULAR HGB CONC 33.8 % (32.0-36.0); MEAN PLATELET VOLUME 8.7 FL (7.0-11.0); MONO % 11.1 % (0.0-8.0); MONOCYTE # 0.6 TH/MM3 (0-0.9); NEUT % 73.5 % (16.0-70.0); PLATELET COUNT 158 TH/MM3 (150-450); RED BLOOD COUNT 2.93 MIL/MM3 (4.50-5.90); RED CELL DISTRIBUTION WIDTH 15.4 % (11.6-17.2); WHITE BLOOD COUNT 5.1 TH/MM3 (4.0-11.0)
[2017-08-16 07:24] LABS: BICARBONATE 27.6 MEQ/L (21.0-32.0); CALCIUM 8.4 MG/DL (8.5-10.1); CREATININE 0.97 MG/DL (0.60-1.30)
[2017-08-16] MEDS: TAMSULOSIN HCL 0.4 MG CAP PO SCH ×2 (09:00→21:53)
[2017-08-16] MEDS: FAMOTIDINE 20 MG TAB PO SCH ×2 (09:00→21:53)
[2017-08-16] MEDS ORDERED: GENTAMICIN SULFATE 80 MG/2 ML VIAL ONE (09:48)
[2017-08-16] MEDS ORDERED: ePHEDrine/NS 25 MG/5 ML SYRINGE IV ONE (12:00)
[2017-08-16] MEDS ORDERED: NEOSTIGMINE 5 MG/5 ML SYRINGE IV PUSH ONE (12:00)
[2017-08-16] MEDS ORDERED: PROPOFOL 200 MG/20 ML AMP IV ONE (12:00)
[2017-08-16] MEDS ORDERED: LIDOCAINE HCL 1% PF 5 ML SYRINGE OTHER ONE (12:00)
[2017-08-16] MEDS ORDERED: ONDANSETRON HCL 4 MG/2 ML VIAL IV PUSH ONE (12:00)
[2017-08-16] MEDS: FUROSEMIDE 20 MG TAB PO SCH ×2 (12:00→18:20)
[2017-08-16] MEDS ORDERED: DEXAMETHASONE SOD PHOS 4 MG/ML VIAL IV ONE (12:00)
[2017-08-16] MEDS ORDERED: ROCURONIUM INJ 50 MG/5 ML SYRINGE IV PUSH ONE (12:00)
[2017-08-16] MEDS ORDERED: GLYCOPYRROLATE 1 MG/5 ML SYRINGE IV PUSH ONE (12:00)
[2017-08-16] MEDS ORDERED: PHENYLEPH/NS 1000 MCG/10 ML SYR IV ONE (12:00)
[2017-08-16] MEDS ORDERED: MIDAZOLAM HCL 2 MG/2 ML VIAL ONE (12:05)
[2017-08-16] MEDS ORDERED: MORPHINE SULFATE 4 MG/ML INJ ONE (12:05)
--- NOTE | 2017-08-16 12:05 | PD.OP ---
cc: Rui Krause MD Operative Report Date of Surgery: Aug 16, 2017 Preoperative Diagnosis: (1) Closed fracture of right proximal humerus Postoperative Diagnosis: (1) Closed fracture of right proximal humerus Procedure: Open reduction internal fixation right proximal humerus fracture Implants used: Synthes proximal humeral locking plate Anesthesia: Gen. Surgeon: Rui Krause Metallurgical Inspector(s): Tash Gonsales PA-C (Ashley) The surgical procedure was assisted by my physician's customer relations assistant. Her presence was necessary throughout the case for manipulation and positioning of the surgical extremity. My PA was assisting me throughout the duration of this procedure. The skill set of the physician customer relations assistant was medically necessary to complete this procedure. During the surgical case the surgical scrub technician was working at the back table and the physician customer relations assistant was directly assisting me. Operation and Findings: Indications: This 72-year-old male who is a halfway resident fell injuring his right shoulder. He presented to [facility]. X-rays revealed a displaced proximal humerus fracture. He states he had no prior shoulder problems. Given the alternatives of the treatment he presents for ORIF. Procedure and findings: The patient was taken to the operative suite and after undergoing an adequate level of general anesthesia was placed in the beachchair position on the operating table. Preoperative antibiotics consisted of Ancef 2 g IV. The right upper extremity was then prepped and draped in usual sterile fashion with alcohol, Hibiclens and ChloraPrep. A standard deltopectoral approach to the shoulder was made with incision extending from the coracoid process to the deltoid insertion. This was carried down through skin and subcutaneous tissue with a knife. Hemostasis was obtained with cautery. The deltopectoral interval was developed. The cephalic vein was identified and protected. The fracture site was identified. The rotator cuff appeared intact. A Synthes proximal locking plate was then positioned. Proximal locking screw fixation was accomplished in the humeral head. The fracture was then reduced and distal cortical screw fixation accomplished. The position was checked in both the AP and lateral planes with the C-arm. The distal screws were then placed proximally and distally. The position was again checked. The wound was thoroughly irrigated. A Hemovac drain was left in place. It was closed in layers utilizing 0 Vicryl suture on the muscular fascia, 2-0 Vicryl suture in subcutaneous tissue and cesar on the skin. Sterile dressings were applied, the patient was awakened, transferred to the hospital bed and taken to the recovery room in stable condition. Estimated blood loss: 200 cc Complications: None Rui Krause MD Aug 16, 2017 12:05
[2017-08-16] MEDS ORDERED: *morphine SULFATE 10 MG/ML PERIprocedure ONLY ONE (12:06)
[2017-08-16] MEDS ORDERED: *diphenhydrAMINE HCL 50 MG/ML VIAL PERIprocedural Use ONLY ONE (12:09)
[2017-08-16] MEDS ORDERED: SODIUM CHLORIDE 0.9% FLUSH 10 ML FLUSH IV FLUSH PRN (12:15)
[2017-08-16] MEDS ORDERED: MORPHINE SULFATE 4 MG/ML INJ IV PUSH PRN (12:15)
[2017-08-16] MEDS ORDERED: SENNOSIDES 8.6 MG TAB PO PRN (12:15)
[2017-08-16] MEDS ORDERED: MAGNESIUM HYDROXIDE SUSP 30 ML CUP PO PRN (12:15)
[2017-08-16] MEDS ORDERED: oxyCODONE/ACETAMINOPHEN 5 MG/325 MG TAB PO PRN (12:15)
[2017-08-16] MEDS ORDERED: ACETAMINOPHEN 325 MG TAB PO PRN (12:15)
[2017-08-16] MEDS ORDERED: diphenhydrAMINE HCL 25 MG CAP PO PRN (12:15)
[2017-08-16] MEDS ORDERED: POVIDONE IODINE 10% SOLN 118 ML BOTTLE TOPICAL PRN (12:15)
[2017-08-16] MEDS ORDERED: Post-op Orders (for Pharmacy) XX ONE (12:15)
[2017-08-16] MEDS ORDERED: LACTULOSE SYRUP 20 GM/30 ML CUP PO PRN (12:15)
[2017-08-16] MEDS ORDERED: ONDANSETRON HCL 4 MG/2 ML VIAL IVP PRN (12:15)
--- NOTE | 2017-08-16 12:52 | HHI.PR ---
Subjective Remarks had surgery earlier today. in no acute distress. pain is controlled. no other complaints. Objective Vitals Vital Signs Date Time Temp Pulse Resp B/P (MAP) Pulse Ox O2 Delivery O2 Flow Rate FiO2 08/16/17 09:30 98.6 60 20 133/61 (85) 97 08/16/17 08:59 98.6 60 20 133/61 (85) 97 08/16/17 08:30 98.2 64 17 114/53 (73) 97 08/16/17 07:15 Room Air 08/16/17 00:00 97.3 65 16 128/60 (82) 97 08/15/17 21:03 97.6 08/15/17 20:00 98.1 60 16 136/60 (85) 100 08/15/17 19:45 Nasal Cannula 3.00 08/15/17 19:15 08/15/17 18:48 61 18 123/55 (77) 93 Nasal Cannula 2.00 08/15/17 15:38 60 18 180/80 (113) 97 Room Air 08/15/17 12:55 60 18 165/72 (103) 99 Room Air 08/15/17 12:55 60 18 99 Room Air 08/15/17 12:50 60 18 165/72 (103) 99 I/O 08/15/17 08/15/17 08/15/17 08/16/17 08/16/17 08/16/17 06:59 14:59 22:59 06:59 14:59 22:59 Intake Total 1000 ml 800 ml Output Total 100 ml Balance 1000 ml 700 ml Intake Oral 1000 ml IV Total 800 ml Output Estimated Blood Loss 100 ml # Voids 5 Result Diagram: 08/16/17 0605 08/16/17 0605 Imaging Last Impressions Shoulder X-Ray 08/15/17 1307 Signed Impressions: Service Date/Time: Tuesday, August 15, 2017 14:31 - CONCLUSION: Acute humeral neck fracture. Casey Dickey Jr., MD Objective Remarks GENERAL: This is a well-nourished, well-developed patient, in no apparent distress. CARDIOVASCULAR: Regular rate and regular rhythm without murmurs, gallops, or rubs. RESPIRATORY: Clear to auscultation. Breath sounds equal bilaterally. No wheezes , rales, or rhonchi. GASTROINTESTINAL: Abdomen soft, non-tender, nondistended. Normal, active bowel sounds MUSCULOSKELETAL: right shoulder covered with clean dressing. NEURO: Alert & Oriented x4 to person, place, time, situation. Moves all ext x4 Procedures Open reduction internal fixation right proximal humerus fracture Medications and IVs Inpatient Medications Acetaminophen (Tylenol) 650 mg Q6H PRN PO Temperature > 101.5; Start 08/16/17 at 12:15 Acetaminophen/ Hydrocodone Bitart ([place] 5-325 Mg) 1 tab Q4H PRN PO PAIN SCALE 3 TO 5; Start 08/15/17 at 18:15; Stop 08/16/17 at 12:39; Status DC Acetaminophen/ Hydrocodone Bitart ([place] 10-325 Mg) 1 tab Q6H PRN PO PAIN SCALE 6 TO 10 Last administered on 08/16/17at 00:07; Start 08/15/17 at 18:15; Stop 08/16/17 at 12:39; Status DC Bisacodyl (Dulcolax Supp) 10 mg DAILY PRN RECTAL SEVERE CONSITIPATION; Start at 12:15 Cefazolin Sodium/ Dextrose 50 ml @ 100 mls/hr Q8H IV ; Start 08/16/17 at 18:00 Chlorhexidine Gluconate (Chlorhexidine 2% Cloth) 3 pack PHARMACIST IN CHARGE OWNER PRN TOPICAL SEE LABEL COMMENTS; Start 08/15/17 at 22:45; Stop 08/18/17 at 22:44 Diphenhydramine HCl (Benadryl) 25 mg Q6H PRN PO ITCHING; Start 08/16/17 at 12: 15 Escitalopram Oxalate (Lexapro) 10 mg DAILY PO ; Start 08/16/17 at 09:00 Famotidine (Pepcid) 20 mg BID PO ; Start 08/16/17 at 09:00 Ferrous Sulfate (Ferrous Sulfate) 325 mg DAILY PO ; Start 08/16/17 at 09:00 Furosemide (Lasix) 20 mg Q6HR PO ; Start 08/16/17 at 12:00 Hydromorphone HCl (Dilaudid Pf Inj) 1 mg ONCE ONCE IVS Last administered on at 16:45; Start 08/15/17 at 16:45; Stop 08/15/17 at 16:46; Status DC Lactated Ringer's 1,000 ml @ 30 mls/hr Q24H PRN IV SEE LABEL COMMENTS; Start at 22:45; Stop 08/18/17 at 22:44 Lactulose (Lactulose Liq) 30 ml DAILY PRN PO SEVERE CONSITIPATION; Start at 12:15 Magnesium Hydroxide (Milk Of Magnesia Liq) 30 ml Q12H PRN PO Mild constipation ; Start 08/16/17 at 12:15 Miscellaneous Information (Post-op Orders (for Pharmacy)) STAT ONCE XX ; Start 08/16/17 at 12:15; Stop 08/16/17 at 12:41; Status DC Morphine Sulfate (Morphine Inj) 4 mg Q4H PRN IV PUSH PAIN SCALE 6 TO 10; Start 08/16/17 at 12:15 Multivitamins/ Minerals Therapeutic (Theragran M Tab) 1 tab DAILY PO ; Start at 09:00 Naloxone HCl (Narcan Inj) 0.4 mg UNSCH PRN IV PUSH SEE LABEL COMMENTS; Start at 18:15 Ondansetron HCl (Zofran Inj) 4 mg Q4H PRN IVP NAUSEA OR VOMITING; Start at 12:15 Oxycodone/ Acetaminophen (Percocet 5-325 Mg) 2 tab Q6H PRN PO PAIN GREATER THAN/EQUAL TO 5; Start 08/16/17 at 12:15 Potassium Chloride (KCl) 20 meq DAILY PO ; Start 08/16/17 at 09:00 Povidone Iodine (Betadine 10% Top Soln) 30 applic UNSCH X1 PRN TOPICAL WOUND CARE; Start 08/16/17 at 12:15; Stop 08/18/17 at 12:14; Status UNV Povidone Iodine (Betadine 5% Antisepsis Kit) 1 applic PHARMACIST IN CHARGE OWNER PRN EACH NARE SEE LABEL COMMENTS; Start 08/15/17 at 22:45; Stop 08/18/17 at 22:44 Ropinirole HCl (Requip) 2 mg BID PO ; Start 08/16/17 at 09:00 Senna/Docusate Sodium (Polly-Colace) 1 tab BID PO ; Start 08/16/17 at 21:00 Sennosides (Senokot) 17.2 mg Q12H PRN PO Moderate constipation; Start 08/16/17 at 12:15 Sodium Chloride (NS Flush) 2 ml BID IV FLUSH ; Start 08/16/17 at 21:00 Tamsulosin HCl (Flomax) 0.4 mg BID PO ; Start 08/16/17 at 09:00 Vancomycin HCl 1000 mg/Sodium Chloride 250 ml @ 250 mls/hr PHARMACIST IN CHARGE OWNER IV ; Start 08/15/17 at 21:30; Stop 08/18/17 at 21:29 A/P Problem List: (1) Closed fracture of right proximal humerus ICD Code: S42.201A - Unspecified fracture of upper end of right humerus, initial encounter for closed fracture Status: Acute Assessment and Plan Closed fracture of right proximal humerus - s/p surgical repair- management per ortho. Urinary retention requiring self-catheterization intermittently - Continue Flomax 0.4 mg by mouth twice a day - Monitor I&O carefully - at high risk for urinary retention postoperatively Urologist Dr. Peña - consult if needed Chronic wounds to bilateral lower extremities - Consulted wound care nurse CHF - chronic diastolic- compensated- - monitor I and O - resume home lasix/K+ - monitor K+ levels refractory specialist Dr. Thorne - patient reports normal stress test 6 months ago atrial fibrillation - resume Xarelto per Ortho recommendations - continuous cardiac telemetry MICHAEL - resume home CPAP airways operations specialist Dr. Manuel DVT prophylaxis - resume Xarelto per Ortho recommendations Anjelica Dennison MD Aug 16, 2017 12:52
[2017-08-16] MEDS: SODIUM CHLOR 0.45% 1000 ML INJ 1,000 ML IV SCH ×2 (13:00→23:10)
[2017-08-16] MEDS ORDERED: DO NOT ADM ANY ANTICOAGULANT DRUGS PRN (13:15)
--- NOTE | 2017-08-16 13:43 | RADRPT ---
EXAM DATE/TIME: 08/16/2017 11:22 [place] COMPARISON: No previous studies available for comparison. INDICATIONS : Open reduction internal fixation right proximal humerus fracture MEDICAL HISTORY : None. SURGICAL HISTORY : None. ENCOUNTER: Initial ACUITY: 1 day PAIN SCORE: Non-responsive. LOCATION: Right proximal humerus FINDINGS: Status post internal fixation of the proximal humerus. There is good position and alignment of the fr acture fragments. Hardware is intact. No joint dislocation. CONCLUSION: Good position and alignment on this postoperative study. Shawn Shaw MD on August 16, 2017 at 13:40 Board Certified Radiologist. This report was verified electronically.
[2017-08-16] MEDS: oxyCODONE/ACETAMINOPHEN 5 MG/325 MG TAB PO PRN (14:44)
[2017-08-16] MEDS: FERROUS SULFATE 325 MG (65 MG ELEMENTAL IRON) TAB PO SCH (14:44)
[2017-08-16] MEDS: POTASSIUM CHLORIDE 20 MEQ CONTROLLED RELEASE TAB PO SCH (14:44)
[2017-08-16] MEDS: ESCITALOPRAM OXALATE 10 MG TAB PO SCH (14:45)
[2017-08-16] MEDS: ceFAZolin 2 GM PREMIX 50 ML IV SCH (18:20)
[2017-08-16] MEDS: DOCUSATE SODIUM 50 MG/SENNA 8.6 MG TAB PO SCH (21:53)
[2017-08-16] MEDS: SODIUM CHLORIDE 0.9% FLUSH 10 ML FLUSH IV FLUSH SCH (21:53)
[2017-08-17] MEDS: FUROSEMIDE 20 MG TAB PO SCH ×3 (00:36→12:14)
[2017-08-17] MEDS: ceFAZolin 2 GM PREMIX 50 ML IV SCH ×2 (00:40→08:54)
[2017-08-17 03:00] VITALS: BP 125/60; PULSE 62; RESP 19; TEMP 97; O2SAT 96
[2017-08-17] MEDS: oxyCODONE/ACETAMINOPHEN 5 MG/325 MG TAB PO PRN ×2 (03:58→12:14)
--- NOTE | 2017-08-17 06:16 | PD.ORT.PN ---
Subjective Post Op Day #: 1 Pain Scale: 2 Subjective Remarks The patient is awake and alert and answers questions appropriately. He is having minimal discomfort. He has no other specific complaint. Objective Vitals Vital Signs Date Time Temp Pulse Resp B/P (MAP) Pulse Ox O2 Delivery O2 Flow Rate FiO2 08/17/17 03:00 97.0 62 19 125/60 (81) 96 08/16/17 22:40 99.1 65 20 116/54 (74) 97 08/16/17 21:56 Nasal Cannula 3.00 08/16/17 20:50 96 Nasal Cannula 3.00 08/16/17 19:42 97.8 64 18 126/58 (80) 96 08/16/17 16:28 96.3 60 18 138/63 (88) 98 08/16/17 12:55 96.7 61 18 138/59 (85) 99 08/16/17 12:30 63 13 140/64 (89) 98 Nasal Cannula 2 08/16/17 12:15 60 13 148/68 (94) 99 Nasal Cannula 2 08/16/17 11:59 97.9 61 13 150/75 (100) 100 Nasal Cannula 2 08/16/17 09:30 98.6 60 20 133/61 (85) 97 08/16/17 08:59 98.6 60 20 133/61 (85) 97 08/16/17 08:30 98.2 64 17 114/53 (73) 97 08/16/17 07:15 Room Air I/O 08/16/17 08/16/17 08/16/17 08/17/17 08/17/17 08/17/17 07:00 15:00 23:00 07:00 15:00 23:00 Intake Total 1000 ml 1400 ml 360 ml 240 ml Output Total 100 ml 10 ml 10 ml Balance 1000 ml 1300 ml 350 ml 230 ml Intake Oral 1000 ml 600 ml 360 ml 240 ml IV Total 800 ml Output Drainage Total 10 ml 10 ml Estimated Blood Loss 100 ml # Voids 5 2 0 3 # Bowel Movements 0 0 0 Result Diagram: 08/16/17 0608/16/17604 Imaging Last 48 hours Impressions Humerus X-Ray 08/16/17 0000 Signed Impressions: Service Date/Time: Wednesday, August 16, 2017 11:22 - CONCLUSION: Good position and alignment on this postoperative study. Shawn Shaw MD Shoulder X-Ray 08/15/17 1307 Signed Impressions: Service Date/Time: Tuesday, August 15, 2017 14:31 - CONCLUSION: Acute humeral neck fracture. Casey Dickey Jr., MD Procedures ORIF right proximal humerus fracture 08/16/17 Objective Remarks The right shoulder dressing is dry and intact. A drain is in place. He has normal sensation over the lateral deltoid. He moves his wrist and fingers freely and has good capillary refill and sensation. Assessment & Plan Ortho Post Op Day #: 1 Problem List: (1) Closed fracture of right proximal humerus ICD Codes: S42.201A - Unspecified fracture of upper end of right humerus, initial encounter for closed fracture Status: Acute (2) Hx of cardiac pacemaker ICD Codes: Z95.0 - History of cardiac pacemaker Status: Chronic (3) HTN (hypertension) ICD Codes: I10 - Hypertension Status: Chronic (4) Obesity ICD Codes: E66.9 - Obesity Status: Chronic (5) Hyperlipidemia ICD Codes: E78.5 - Hyperlipidemia Status: Chronic (6) Diabetes ICD Codes: E11.9 - Diabetes mellitus Status: Chronic (7) GERD (gastroesophageal reflux disease) ICD Codes: K21.9 - Gastroesophageal reflux disease Status: Chronic (8) CHF (congestive heart failure) ICD Codes: I50.9 - Congestive heart failure Status: Chronic (9) CAD (coronary artery disease) ICD Codes: I25.10 - Coronary artery disease Status: Chronic (10) Atrial fibrillation ICD Codes: I48.91 - Atrial fibrillation Status: Chronic Assessment and Plan Orthopedic status stable postoperative day 1 status post ORIF right proximal humerus. The patient's pain is well-controlled. He can be discharged to the nursing facility from an orthopedic standpoint. He can do wrist and elbow range of motion exercise and pendulum exercises of the shoulder to tolerance. Follow-up in 10 days. Rui Krause MD Aug 17, 2017 06:16
[2017-08-17] MEDS ORDERED: HYDR-3516 PO (06:23)
[2017-08-17] MEDS ORDERED: REQU5TAB PO (07:16)
[2017-08-17 08:00] VITALS: BP 120/57; PULSE 60; RESP 18; TEMP 97.9; O2SAT 96
[2017-08-17 08:19] LABS: HEMATOCRIT 24.9 % (39.0-51.0); HEMOGLOBIN 8.2 GM/DL (13.0-17.0)
[2017-08-17] MEDS: FERROUS SULFATE 325 MG (65 MG ELEMENTAL IRON) TAB PO SCH (08:54)
[2017-08-17] MEDS: DOCUSATE SODIUM 50 MG/SENNA 8.6 MG TAB PO SCH (08:55)
[2017-08-17] MEDS: ESCITALOPRAM OXALATE 10 MG TAB PO SCH (08:55)
[2017-08-17] MEDS: FAMOTIDINE 20 MG TAB PO SCH (08:55)
[2017-08-17] MEDS: TAMSULOSIN HCL 0.4 MG CAP PO SCH (08:55)
[2017-08-17] MEDS: POTASSIUM CHLORIDE 20 MEQ CONTROLLED RELEASE TAB PO SCH (08:55)
[2017-08-17] MEDS ORDERED: MULTIVITAMINS/MINERALS THERAPEUTIC TAB PO SCH (09:00)
[2017-08-17] MEDS: SODIUM CHLOR 0.45% 1000 ML INJ 1,000 ML IV SCH (09:00)
--- NOTE | 2017-08-17 11:08 | HHI.PR ---
Subjective Remarks in no acute distress. pain is minimal. no dizziness, chest pain or sob. no new complaints. Objective Vitals Vital Signs Date Time Temp Pulse Resp B/P (MAP) Pulse Ox O2 Delivery O2 Flow Rate FiO2 08/17/17 08:00 97.9 60 18 120/57 (78) 96 08/17/17 03:00 97.0 62 19 125/60 (81) 96 08/16/17 22:40 99.1 65 20 116/54 (74) 97 08/16/17 21:56 Nasal Cannula 3.00 08/16/17 20:50 96 Nasal Cannula 3.00 08/16/17 19:42 97.8 64 18 126/58 (80) 96 08/16/17 16:28 96.3 60 18 138/63 (88) 98 08/16/17 12:55 96.7 61 18 138/59 (85) 99 08/16/17 12:30 63 13 140/64 (89) 98 Nasal Cannula 2 08/16/17 12:15 60 13 148/68 (94) 99 Nasal Cannula 2 08/16/17 11:59 97.9 61 13 150/75 (100) 100 Nasal Cannula 2 I/O 08/16/17 08/16/17 08/16/17 08/17/17 08/17/17 08/17/17 07:00 15:00 23:00 07:00 15:00 23:00 Intake Total 1000 ml 1400 ml 360 ml 240 ml Output Total 100 ml 10 ml 10 ml Balance 1000 ml 1300 ml 350 ml 230 ml Intake Oral 1000 ml 600 ml 360 ml 240 ml IV Total 800 ml Output Drainage Total 10 ml 10 ml Estimated Blood Loss 100 ml # Voids 5 2 0 3 # Bowel Movements 0 0 0 Result Diagram: 08/17/17 0606 08/16/17 0605 Imaging Last Impressions Humerus X-Ray 08/16/17 0000 Signed Impressions: Service Date/Time: Wednesday, August 16, 2017 11:22 - CONCLUSION: Good position and alignment on this postoperative study. Shawn Shaw MD Shoulder X-Ray 08/15/17 1307 Signed Impressions: Service Date/Time: Tuesday, August 15, 2017 14:31 - CONCLUSION: Acute humeral neck fracture. Casey Dickey Jr., MD Objective Remarks GENERAL: This is a well-nourished, well-developed patient, in no apparent distress. CARDIOVASCULAR: Regular rate and regular rhythm without murmurs, gallops, or rubs. RESPIRATORY: Clear to auscultation. Breath sounds equal bilaterally. No wheezes , rales, or rhonchi. GASTROINTESTINAL: Abdomen soft, non-tender, nondistended. Normal, active bowel sounds MUSCULOSKELETAL: right shoulder covered with clean dressing. NEURO: Alert & Oriented x4 to person, place, time, situation. Moves all ext x4 Procedures Open reduction internal fixation right proximal humerus fracture Medications and IVs Inpatient Medications Acetaminophen (Tylenol) 650 mg Q6H PRN PO Temperature > 101.5; Start 08/16/17 at 12:15 Acetaminophen/ Hydrocodone Bitart ([place] 5-325 Mg) 1 tab Q4H PRN PO PAIN SCALE 3 TO 5; Start 08/15/17 at 18:15; Stop 08/16/17 at 12:39; Status DC Acetaminophen/ Hydrocodone Bitart ([place] 10-325 Mg) 1 tab Q6H PRN PO PAIN SCALE 6 TO 10 Last administered on 08/16/17at 00:07; Start 08/15/17 at 18:15; Stop 08/16/17 at 12:39; Status DC Bisacodyl (Dulcolax Supp) 10 mg DAILY PRN RECTAL SEVERE CONSITIPATION; Start at 12:15 Cefazolin Sodium/ Dextrose 50 ml @ 100 mls/hr Q8H IV Last administered on 08/17at 08:54; Start 08/16/17 at 18:00 Chlorhexidine Gluconate (Chlorhexidine 2% Cloth) 3 pack [employer] PRN TOPICAL SEE LABEL COMMENTS; Start 08/15/17 at 22:45; Stop 08/18/17 at 22:44 Diphenhydramine HCl (Benadryl) 25 mg Q6H PRN PO ITCHING; Start 08/16/17 at 12: 15 Escitalopram Oxalate (Lexapro) 10 mg DAILY PO Last administered on 08/17/17at 08 :55; Start 08/16/17 at 09:00 Famotidine (Pepcid) 20 mg BID PO Last administered on 08/17/17at 08:55; Start at 09:00 Ferrous Sulfate (Ferrous Sulfate) 325 mg DAILY PO Last administered on at 08:54; Start 08/16/17 at 09:00 Furosemide (Lasix) 20 mg Q6HR PO Last administered on 08/17/17at 05:56; Start at 12:00 Hydromorphone HCl (Dilaudid Pf Inj) 1 mg ONCE ONCE IVS Last administered on at 16:45; Start 08/15/17 at 16:45; Stop 08/15/17 at 16:46; Status DC Lactated Ringer's 1,000 ml @ 30 mls/hr Q24H PRN IV SEE LABEL COMMENTS; Start at 22:45; Stop 08/18/17 at 22:44 Lactulose (Lactulose Liq) 30 ml DAILY PRN PO SEVERE CONSITIPATION; Start at 12:15; Status Future Hold Magnesium Hydroxide (Milk Of Magnesia Liq) 30 ml Q12H PRN PO Mild constipation ; Start 08/16/17 at 12:15 Miscellaneous Information ALL NURSING DEPARTME... UNSCH PRN .XX SEE LABEL COMMENTS; Start 08/16/17 at 13:15; Stop 08/17/17 at 13:14 Miscellaneous Information (Post-op Orders (for Pharmacy)) STAT ONCE XX ; Start 08/16/17 at 12:15; Stop 08/16/17 at 12:41; Status DC Morphine Sulfate (Morphine Inj) 4 mg Q4H PRN IV PUSH PAIN SCALE 6 TO 10; Start 08/16/17 at 12:15 Multivitamins/ Minerals Therapeutic (Theragran M Tab) 1 tab DAILY PO Last administered on 08/17/17at 08:54; Start 08/17/17 at 09:00 Naloxone HCl (Narcan Inj) 0.4 mg UNSCH PRN IV PUSH SEE LABEL COMMENTS; Start at 18:15 Ondansetron HCl (Zofran Inj) 4 mg Q4H PRN IVP NAUSEA OR VOMITING; Start at 12:15 Oxycodone/ Acetaminophen (Percocet 5-325 Mg) 2 tab Q6H PRN PO PAIN GREATER THAN/EQUAL TO 5 Last administered on 08/17/17at 03:58; Start 08/16/17 at 12:15 Potassium Chloride (KCl) 20 meq DAILY PO Last administered on 08/17/17at 08:55; Start 08/16/17 at 09:00 Povidone Iodine (Betadine 10% Top Soln) 30 applic UNSCH X1 PRN TOPICAL WOUND CARE; Start 08/16/17 at 12:15; Stop 08/18/17 at 12:14 Povidone Iodine (Betadine 5% Antisepsis Kit) 1 applic [employer] PRN EACH NARE SEE LABEL COMMENTS; Start 08/15/17 at 22:45; Stop 08/18/17 at 22:44 Ropinirole HCl (Requip) 2 mg BID PO Last administered on 08/16/17at 22:00; Start 08/16/17 at 09:00 Senna/Docusate Sodium (Polly-Colace) 1 tab BID PO Last administered on at 08:55; Start 08/16/17 at 21:00 Sennosides (Senokot) 17.2 mg Q12H PRN PO Moderate constipation; Start 08/16/17 at 12:15 Sodium Chloride (NS Flush) 2 ml BID IV FLUSH Last administered on 08/16/17at 21: 53; Start 08/16/17 at 21:00 Tamsulosin HCl (Flomax) 0.4 mg BID PO Last administered on 08/17/17at 08:55; Start 08/16/17 at 09:00 Vancomycin HCl 1000 mg/Sodium Chloride 250 ml @ 250 mls/hr [employer] IV ; Start 08/15/17 at 21:30; Stop 08/18/17 at 21:29 A/P Problem List: (1) Closed fracture of right proximal humerus ICD Code: S42.201A - Unspecified fracture of upper end of right humerus, initial encounter for closed fracture Status: Acute Assessment and Plan Closed fracture of right proximal humerus - s/p ORIF- cleared by ortho for discharge. Urinary retention requiring self-catheterization intermittently - Continue Flomax 0.4 mg by mouth twice a day - Monitor I&O carefully - at high risk for urinary retention postoperatively Chronic wounds to bilateral lower extremities - wound care f/u as outpatient. CHF - chronic diastolic- compensated- - monitor I and O - resumed home lasix/K+ atrial fibrillation - resume Xarelto per Ortho recommendations - continuous cardiac telemetry MICHAEL - on CPAP Anemia- chronic- will monitor as outpatient. Discharge Planning dc to SNF today with f/u by pcp and ortho. see med list. d/w the patient and RN. Problem Qualifiers (1) Closed fracture of right proximal humerus: Qualified Codes: S42.291A - Other displaced fracture of upper end of right humerus, initial encounter for closed fracture Anjelica Dennison MD Aug 17, 2017 11:08
--- NOTE | 2017-08-17 11:16 | HHI.DS ---
Discharge Summary Admission Date Aug 15, 2017 at 18:41 Discharge Date: Aug 17, 2017 Admitting Diagnosis right humeral neck fracture, . (1) Closed fracture of right proximal humerus ICD Code: S42.201A - Unspecified fracture of upper end of right humerus, initial encounter for closed fracture Diagnosis: Principal Status: Acute Procedures Open reduction internal fixation right proximal humerus fracture Brief History - From Admission Mr. Campo is a pleasant 72-year-old male with a history of congestive heart failure, coronary artery disease status post CABG 4, GERD, atrial fibrillation on Xarelto, obstructive sleep apnea on CPAP, undergoing evaluation for pulmonary fibrosis, and urinary retention who presented to the emergency room from [facility] following a fall with subsequent right shoulder/upper arm pain. The patient was found to have a displaced fracture of the right humeral neck on x-ray and was admitted for surgical management by Dr. Krause to the hospitalist service for management of chronic medical conditions. The patient is seen in his hospital room. He reports that he had a functional fall at the long-term [facility] and developed severe right upper arm and shoulder pain post fall. He did not hit his head or experience loss of consciousness. He reports intermittent upper right arm/shoulder pain that is brought about with movement and is a 10 out of 10. He states that is not relieved with current pain medications but does not desire to take anything new even though it is offered. He tells me it will be surgically corrected soon and that will take care of it. He reports recent decreased appetite, fatigue, and shortness of breath with dry hacking cough which she relates to a possible diagnosis of pulmonary fibrosis which is getting worked up by Dr. Manuel currently. He denies fever or chills. . CBC/BMP: 08/17/17 0606 08/16/17 0605 Significant Findings Laboratory Tests Test 08/16/17 06:05 08/17/17 06:06 Red Blood Count 2.93 MIL/MM3 (4.50-5.90) Hemoglobin 9.2 GM/DL (13.0-17.0) 8.2 GM/DL (13.0-17.0) Hematocrit 27.3 % (39.0-51.0) 24.9 % (39.0-51.0) Neutrophils (%) (Auto) 73.5 % (16.0-70.0) Monocytes (%) (Auto) 11.1 % (0.0-8.0) Lymphocytes # (Auto) 0.7 TH/MM3 (1.0-4.8) Blood Urea Nitrogen 22 MG/DL (7-18) Calcium Level 8.4 MG/DL (8.5-10.1) Estimat Glomerular Filtration Rate 76 ML/MIN (>89) Imaging Last Impressions Humerus X-Ray 08/16/17 0000 Signed Impressions: Service Date/Time: Wednesday, August 16, 2017 11:22 - CONCLUSION: Good position and alignment on this postoperative study. Shawn Shaw MD Shoulder X-Ray 08/15/17 1307 Signed Impressions: Service Date/Time: Tuesday, August 15, 2017 14:31 - CONCLUSION: Acute humeral neck fracture. Casey Dcikey Jr., MD PE at Discharge GENERAL: This is a well-nourished, well-developed patient, in no apparent distress. CARDIOVASCULAR: Regular rate and regular rhythm without murmurs, gallops, or rubs. RESPIRATORY: Clear to auscultation. Breath sounds equal bilaterally. No wheezes , rales, or rhonchi. GASTROINTESTINAL: Abdomen soft, non-tender, nondistended. Normal, active bowel sounds MUSCULOSKELETAL: right shoulder covered with clean dressing. NEURO: Alert & Oriented x4 to person, place, time, situation. Moves all ext x4 Hospital Course Closed fracture of right proximal humerus - s/p ORIF- cleared by ortho for discharge. Urinary retention requiring self-catheterization intermittently - Continue Flomax 0.4 mg by mouth twice a day - Monitor I&O carefully - at high risk for urinary retention postoperatively Chronic wounds to bilateral lower extremities - wound care f/u as outpatient. CHF - chronic diastolic- compensated- - monitor I and O - resumed home lasix/K+ atrial fibrillation - resume Xarelto per Ortho recommendations - continuous cardiac telemetry MICHAEL - on CPAP Pt Condition on Discharge: Stable Discharge Disposition: Discharge to SNF Discharge Time: <= 30 minutes Discharge Instructions DIET: Follow Instructions for: Heart Healthy Diet Activities you can perform: Full Weight Bearing Activities to Avoid: Lifting/Bending Minouei,Mohammadreza MD Aug 17, 2017 11:16
[2017-08-17 12:02] VITALS: BP 157/69; PULSE 60; RESP 19; TEMP 98.9; O2SAT 97
[2017-08-17] MEDS: SODIUM CHLORIDE 0.9% FLUSH 10 ML FLUSH IV FLUSH SCH (12:16)
--- NOTE | 2017-08-19 11:56 | PD ---
HPI Chief Complaint: Fall Time Seen by Provider: 12:55 Travel History International Travel<30 days: No Contact w/Intl Traveler<30days: No Traveled to known affect area: No History of Present Illness HPI This is a 72-year-old gentleman with a history of coronary artery disease, congestive heart failure, atrial fibrillation, sleep apnea, who presents from [facility] after he had a mechanical fall. Patient complains of right shoulder pain. The patient denies any other injuries at this time. Patient states that he is concerned he may have dislocated or fractured his shoulder. Patient denies any numbness or tingling down his arm. He just reports pain in his shoulder area. PFSH Past Medical History Hx Anticoagulant Therapy: Yes Arthritis: Yes Asthma: No Atrial Fibrillation: Yes Blood Disorders: No Anxiety: No Depression: No Heart Rhythm Problems: Yes (afib) Cancer: Yes (skin -arms/ forearm) Cardiac Catheterization: Yes Cardiovascular Problems: Yes (HTN, CHF, CABGX4) High Cholesterol: Yes Chemotherapy: No Chest Pain: No Congestive Heart Failure: Yes COPD: No Cerebrovascular Accident: No Coronary Artery Disease: Yes Diabetes: No Diminished Hearing: No Endocrine: No Gastrointestinal Disorders: Yes GERD: Yes Genitourinary: Yes (spastic bladder) Headaches: No Hiatal Hernia: No Hypertension: Yes (a fib) Immune Disorder: No Implanted Vascular Access Dvce: Yes Kidney Stones: No Musculoskeletal: Yes (bone spurs, ) Neurologic: No Psychiatric: No Reproductive: No Respiratory: No Immunizations Current: Yes Migraines: No Radiation Therapy: No Renal Failure: No Seizures: No Sickle Cell Disease: No Sleep Apnea: No Thyroid Disease: No Ulcer: No Tetanus Vaccination: < 5 Years Past Surgical History Abdominal Surgery: Yes (gallbladder removed/ intestine bypass) AICD: No Arteriovenous Shunt: No Body Medical Devices: LEFT PACEMAKER Cardiac Surgery: Yes (CABGX4) Cholecystectomy: Yes Coronary Artery Bypass Graft: Yes (x5) Coronary Stent: Yes (x1) Ear Surgery: No Endocrine Surgery: No Eye Surgery: No Genitourinary Surgery: No Gynecologic Surgery: No Insulin Pump: No Joint Replacement: No Neurologic Surgery: Yes (epidurals on spine) Oral Surgery: No Pacemaker: Yes ([place] [employer] Model- [id number]) Thoracic Surgery: Yes (RIGHT LOWER lobectomy) Other Surgery: Yes (cabg,pacemaker,r lower lobectomy) Social History Alcohol Use: No Tobacco Use: No Substance Use: No Allergies-Medications (Allergen,Severity, Reaction): Coded Allergies: *MDRO Multi-Drug Resistant Organism (Verified Adverse Reaction, Unknown, ) 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 Reported Meds & Prescriptions Reported Meds & Active Scripts Active Reported Ondansetron (Ondansetron HCl) 4 Mg Tab 1 Tab PO Q6HR Furosemide 20 Mg Tab 20 Mg PO Q6HR Roxifol-D (Folic Acid-Cholecalciferol) 1-500 mg-Unit Tab 1 Mg PO DAILY Dulcolax Supp (Bisacodyl) 10 Mg Supp 10 Mg RECTAL DAILY PRN Escitalopram (Escitalopram Oxalate) 10 Mg Tab 10 Mg PO DAILY Potassium Chloride ER (Potassium Chloride) 20 Meq Tab 20 Meq PO DAILY Pyridium (Phenazopyridine HCl) 100 Mg Tab 100 Mg PO Q8H PRN Magnebind-400 Rx (Magnesium-Calcium Carbonates-Folic Acid) 400-200-1 Mg Tab 1 Tab PO DAILY Multiple Vitamin 1 Tab 1 Tab PO DAILY Flomax (Tamsulosin HCl) 0.4 Mg Cap 0.4 Mg PO BID Zantac (Ranitidine HCl) 150 Mg Tab 150 Mg PO BID Xarelto (Rivaroxaban) 10 Mg Tab 10 Mg PO DAILY Ferrous Sulfate DR (Ferrous Sulfate) 324 Mg Tabdr 324 Mg PO DAILY Review of Systems Except as stated in HPI: all other systems reviewed are Neg General / Constitutional: No: Fever, Chills HENT: No: Headaches, Neck Pain Cardiovascular: No: Chest Pain or Discomfort, Palpitations Respiratory: Positive: Shortness of Breath (Chronic, nothing new), No: Cough Gastrointestinal: No: Nausea, Vomiting, Abdominal Pain Genitourinary: No: Dysuria, Incontinence Musculoskeletal: Positive: Limited ROM (Secondary to pain), Pain (Right shoulder) Neurologic: No: Weakness, Dizziness, Headache Physical Exam Narrative GENERAL: Well-developed well-nourished male with a right sling in place complaint of right shoulder pain. Patient is in no acute respiratory distress. SKIN: Focused skin assessment warm/dry. HEAD: Atraumatic. Normocephalic. EYES: No scleral icterus. No injection or drainage. ENT: No nasal bleeding or discharge. Mucous membranes pink and moist. NECK: Trachea midline. Supple. CARDIOVASCULAR: Rate in the 80s. Irregular. No obvious murmurs. RESPIRATORY: Rhonchi heard in the lower lung mcdaniel. No rales. GASTROINTESTINAL: Abdomen soft, non-tender, nondistended. MUSCULOSKELETAL: Patient's right arm is in the flexed position and internally rotated. He has tenderness to palpation in his humeral head and neck. No obvious deformities noted. He has palpable radial pulses. Cap refill was 3 seconds in his hand. He reports normal sensation in his distal fingertips. NEUROLOGICAL: Awake and alert. No obvious cranial nerve deficits. Motor grossly within normal limits. Normal speech. PSYCHIATRIC: Appropriate mood and affect; insight and judgment normal. Data Data Last Documented VS Vital Signs Date Time Temp Pulse Resp B/P (MAP) Pulse Ox O2 Delivery O2 Flow Rate FiO2 08/15/17 15:38 60 18 180/80 (113) 97 Room Air Orders Orders Iv Access Insert/Monitor (08/15/17 13:07) Ecg Monitoring (08/15/17 13:07) Oximetry (08/15/17 13:07) Hydromorphone Pf Inj (Dilaudid Pf Inj) (08/15/17 13:15) Ondansetron Inj (Zofran Inj) (08/15/17 13:15) Shoulder, Limited(2vws) (08/15/17 13:07) [employer] Request For Service (08/15/17 16:33) Hydromorphone Pf Inj (Dilaudid Pf Inj) (08/15/17 16:45) Ropinirole Hcl (Requip) (08/15/17 17:15) Admit To Inpatient (08/15/17 ) Vital Signs (Adult) Q4H (08/15/17 18:06) Activity Bed Rest (08/15/17 18:06) Diet Npo (08/15/17 Dinner) Sodium Chlor 0.9% 1000 Ml Inj (Ns 1000 M (08/15/17 19:00) Sodium Chloride 0.9% Flush (Ns Flush) (08/15/17 18:15) Sodium Chloride 0.9% Flush (Ns Flush) (08/15/17 21:00) Ondansetron Inj (Zofran Inj) (08/15/17 18:15) Basic Metabolic Panel (Bmp) (08/16/17 06:00) Complete Blood Count With Diff (08/16/17 06:00) Naloxone Inj (Narcan Inj) (08/15/17 18:15) Docusate Sodium-Senna (Polly-Colace) (08/15/17 21:00) Magnesium Hydroxide Liq (Milk Of Magnesi (08/15/17 18:15) Sennosides (Senokot) (08/15/17 18:15) Bisacodyl Supp (Dulcolax Supp) (08/15/17 18:15) Lactulose Liq (Lactulose Liq) (08/15/17 18:15) Inpatient Certification (08/15/17 ) Acetamin-Hydrocod 325-5 Mg (Luke 5-325 (08/15/17 18:15) Acetamin-Hydrocod 325-10 Mg (Luke 10-32 (08/15/17 18:15) Morphine Inj (Morphine Inj) (08/15/17 18:15) Admit Order (Ed Use Only) (08/15/17 18:16) MDM Medical Decision Making Medical Screen Exam Complete: Yes Emergency Medical Condition: Yes Differential Diagnosis Fracture versus dislocation versus contusion Narrative Course 72-year-old male status post mechanical fall at the [facility] facility. The patient has a proximal humeral neck fracture. There is mild displacement noted. The case was discussed with Dr. Rui Krause who recommends we admit the patient so he can perform surgical repair. I discussed with the patient the plan and he is amenable. The patient is on Xarelto for his atrial fibrillation. This is been passed on to the admitting physician. He has been given pain medication. He has been placed in a sling rather than a long-arm splint. Diagnosis Primary Impression: Closed fracture of right proximal humerus Qualified Codes: S42.291A - Other displaced fracture of upper end of right humerus, initial encounter for closed fracture Additional Impressions: Atrial fibrillation Anticoagulated Obesity Admitting Information Admitting Physician Requests: Admit Patient Instructions: How to Use a Sling (GEN), Bandage Change (DC), Fall Prevention (DC), Proximal Humerus Fracture (DC) Scripts Hydrocodone-Acetaminophen (Hydrocodone-Acetaminophen) 5-325 mg Tab 1 TAB PO DIRECTED Y for PAIN for 7 Days, #30 TAB 0 Refills Prov: Rui Krause MD 08/17/17 Cosme Cueva MD Aug 19, 2017 11:56
== END 2017-08-17 13:52 | DRG 493 ==
LOC: NEPE 12:41 → NEDA 18:41 → N06B 19:20
PROVIDERS: ADMIT Internal Medicine; ATTEND Internal Medicine
PROC: 0PSC04Z Reposition Right Humeral Head with Internal Fixation Device, Open Approach (ICD-10-PCS; principal; 2017-08-16 09:40)
DX: S42.211A Unspecified displaced fracture of surgical neck of right humerus, initial encounter for closed fracture (principal); I50.32 Chronic diastolic (congestive) heart failure; I11.0 Hypertensive heart disease with heart failure; I48.91 Unspecified atrial fibrillation; J44.9 Chronic obstructive pulmonary disease, unspecified; E11.9 Type 2 diabetes mellitus without complications; D64.9 Anemia, unspecified; I25.10 Atherosclerotic heart disease of native coronary artery without angina pectoris; K21.9 Gastro-esophageal reflux disease without esophagitis; E66.9 Obesity, unspecified; W18.30XA Fall on same level, unspecified, initial encounter; E78.5 Hyperlipidemia, unspecified; G47.33 Obstructive sleep apnea (adult) (pediatric); R33.9 Retention of urine, unspecified; M19.90 Unspecified osteoarthritis, unspecified site; Z87.891 Personal history of nicotine dependence; Z95.1 Presence of aortocoronary bypass graft; Z79.01 Long term (current) use of anticoagulants; Z95.0 Presence of cardiac pacemaker; Z95.5 Presence of coronary angioplasty implant and graft; Z68.36 Body mass index [BMI] 36.0-36.9, adult
CPT/HCPCS: 73030; 73060; 76000; 80048; 85014; 85018; 85025; 94150; 96374; 96375; C1713; J0690; J1100; J1170; J1200; J1580; J2250; J2270; J2370; J2405; J2710; J3010; J7030

== ENCOUNTER 2017-08-19 05:33 | Emergency (ER) | payer MEDICARE, OTHER ==
[~2017-08-19] VITALS: Ht 172.7 cm; Wt 100.0 kg
[~2017-08-19 05:33] MED LIST changes: -ACET325C PO; -ALPR.25 PO; -BUME2TAB PO; -MELA3TAB23; -METH2.5T PO; -OXYC1TAB63 PO; +REQU5TAB PO; -ROPI2TAB PO
[2017-08-19 05:49] VITALS: BP 146/70; PULSE 90; RESP 18; TEMP 98.4; O2SAT 98
--- NOTE | 2017-08-19 06:08 | PD ---
HPI Chief Complaint: Complaint Time Seen by Provider: 06:05 Travel History International Travel<30 days: No Contact w/Intl Traveler<30days: No Traveled to known affect area: No History of Present Illness HPI The patient is a 72 year old male who presents to the [facility] emergency department with a history of urinary retention since midnight. The patient reports that he has a history of urinary retention and occasionally self caths. The patient is followed by Dr. Peña for his urologic care. He reports a history of ureteral strictures that have been dilated in the past. The patient reports that the correction staff attempted to place a catheter without success. The patient denies having any hematuria. The patient is chronically anticoagulated on Xarelto for atrial fibrillation. Otherwise on review of systems of this patient he reports having lower abdominal pain related to urinary retention. He denies having any recent fevers or chills, worsening cough or congestion. He reports that he has a chronic dry cough and is in the process of being worked up for pulmonary fibrosis. He denies having any neck pain, chest pain, worse shortness of breath, vomiting, diarrhea, urinary symptoms, or neurologic symptoms. FOR[facility]LY [facility], LATER [facility] Past Medical History Narrative Medical The patient's past medical history is significant for congestive heart failure, pulmonary fibrosis currently in the process of being worked up, coronary artery disease status post coronary artery bypass grafting, acid reflux, atrial fibrillation chronically anticoagulated on Xarelto, arthritis, detached retina status post repair, urinary retention. Hx Anticoagulant Therapy: Yes Arthritis: Yes Asthma: No Atrial Fibrillation: Yes Blood Disorders: No Anxiety: No Depression: No Heart Rhythm Problems: Yes (afib) Cancer: Yes (skin -arms/ forearm) Cardiac Catheterization: Yes Cardiovascular Problems: Yes (HTN, CHF, CABGX4) High Cholesterol: Yes Chemotherapy: No Chest Pain: No Congestive Heart Failure: Yes COPD: No Cerebrovascular Accident: No Coronary Artery Disease: Yes Diabetes: No Diminished Hearing: No Endocrine: No Gastrointestinal Disorders: Yes GERD: Yes Genitourinary: Yes (spastic bladder) Headaches: No Hiatal Hernia: No Hypertension: Yes (a fib) Immune Disorder: No Implanted Vascular Access Dvce: Yes Kidney Stones: No Musculoskeletal: Yes (bone spurs, ) Neurologic: No Psychiatric: No Reproductive: No Respiratory: No Immunizations Current: Yes Migraines: No Radiation Therapy: No Renal Failure: No Seizures: No Sickle Cell Disease: No Sleep Apnea: No Thyroid Disease: No Ulcer: No Tetanus Vaccination: < 5 Years Influenza Vaccination: Yes Past Surgical History Narrative Surgical The patient's past surgical history is significant for cardiac catheterization with stent placement, pacemaker placement, ORIF of the ankle, coronary artery bypass grafting, cholecystectomy, right lower lobectomy for benign mass/scar tissue. Abdominal Surgery: Yes (gallbladder removed/ intestine bypass) AICD: No Arteriovenous Shunt: No Body Medical Devices: LEFT PACEMAKER Cardiac Surgery: Yes (CABGX4) Cholecystectomy: Yes Coronary Artery Bypass Graft: Yes (x5) Coronary Stent: Yes (x1) Ear Surgery: No Endocrine Surgery: No Eye Surgery: No Genitourinary Surgery: No Gynecologic Surgery: No Insulin Pump: No Joint Replacement: No Neurologic Surgery: Yes (epidurals on spine) Oral Surgery: No Pacemaker: Yes ([employer] Model- [id number]) Thoracic Surgery: Yes (RIGHT LOWER lobectomy) Other Surgery: Yes (cabg,pacemaker,r lower lobectomy) Social History Alcohol Use: No Tobacco Use: No Substance Use: No Allergies-Medications (Allergen,Severity, Reaction): Coded Allergies: *MDRO Multi-Drug Resistant Organism (Verified Adverse Reaction, Unknown, ) 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 Reported Meds & Prescriptions Reported Meds & Active Scripts Active Hydrocodone-Acetaminophen 5-325 mg Tab 1 Tab PO DIRECTED PRN 7 Days Reported Requip (Ropinirole) 5 Mg Tab 6 Mg PO DAILY Ondansetron (Ondansetron HCl) 4 Mg Tab 1 Tab PO Q6HR Furosemide 20 Mg Tab 20 Mg PO Q6HR Roxifol-D (Folic Acid-Cholecalciferol) 1-500 mg-Unit Tab 1 Mg PO DAILY Dulcolax Supp (Bisacodyl) 10 Mg Supp 10 Mg RECTAL DAILY PRN Escitalopram (Escitalopram Oxalate) 10 Mg Tab 10 Mg PO DAILY Potassium Chloride ER (Potassium Chloride) 20 Meq Tab 20 Meq PO DAILY Pyridium (Phenazopyridine HCl) 100 Mg Tab 100 Mg PO Q8H PRN Magnebind-400 Rx (Magnesium-Calcium Carbonates-Folic Acid) 400-200-1 Mg Tab 1 Tab PO DAILY Multiple Vitamin 1 Tab 1 Tab PO DAILY Flomax (Tamsulosin HCl) 0.4 Mg Cap 0.4 Mg PO BID Zantac (Ranitidine HCl) 150 Mg Tab 150 Mg PO BID Xarelto (Rivaroxaban) 10 Mg Tab 10 Mg PO DAILY Ferrous Sulfate DR (Ferrous Sulfate) 324 Mg Tabdr 324 Mg PO DAILY Review of Systems Except as stated in HPI: all other systems reviewed are Neg General / Constitutional: No: Fever Eyes: No: Visual changes HENT: No: Headaches Cardiovascular: No: Chest Pain or Discomfort Respiratory: Positive: Shortness of Breath (Chronic shortness of) Gastrointestinal: Positive: Abdominal Pain, No: Nausea, Vomiting, Diarrhea Genitourinary: Positive: Decreased Urinary Output, Hesitancy, No: Dysuria Musculoskeletal: No: Pain Skin: No Rash Neurologic: Positive: Weakness (Chronic fatigue and weakness), No: Focal Abnormalities, Change in Mentation, Slurred Speech, Sensory Disturbance Psychiatric: No: Depression Endocrine: No: Polydipsia Hematologic/Lymphatic: No: Easy Bruising Physical Exam Narrative General: The patient is a well-developed well-nourished male who is uncomfortable appearing on arrival, reporting bladder spasms. Head and Neck exam: Head is normocephalic atraumatic. Eyes: EOMI, pupils are equal round and reactive to light. Nose: Midline septum with pink mucous membranes Mouth: Dentition unremarkable. Moist mucus membranes. Posterior oropharynx is not erythematous. No tonsillar hypertrophy. Uvula midline. Airway patent. Neck: No palpable lymphadenopathy. No nuchal rigidity. No thyromegaly. Cardiovascular: Regular rate and rhythm without murmurs, gallops, or rubs. Lungs: Clear to auscultation bilaterally. No wheezes, rhonchi, or rales. Abdomen: Soft, with tenderness and suprapubic prominence on palpation of the lower abdomen. The patient has central obesity making it difficult to palpate for bladder enlargement, however this is suspected on his exam. The patient has no other tenderness on palpation of the other quadrants of the abdomen. Normal bowel sounds are audible. No tenderness on palpation of McBurney's point. No guarding, rebound, or rigidity. Extremities: No clubbing or cyanosis. The patient has 1+ edema bilateral lower extremity. 2 + pulses in all 4 extremities. No calf tenderness on palpation peer Back: No costovertebral angle tenderness to palpation. Neurologic Exam: Grossly nonfocal Skin Exam: No rash noted. Intact skin that is warm and dry. Data Data Last Documented VS Vital Signs Date Time Temp Pulse Resp B/P (MAP) Pulse Ox O2 Delivery O2 Flow Rate FiO2 08/19/17 18:17 98.9 68 18 138/67 (90) 99 Nasal Cannula 2 Orders Orders Complete Blood Count With Diff (08/19/17 06:15) Basic Metabolic Panel (Bmp) (08/19/17 06:15) Prothrombin Time / Inr (Pt) (08/19/17 06:15) Act Partial Throm Time (Ptt) (08/19/17 06:15) Urinalysis - C+S If Indicated (08/19/17 06:15) Iv Access Insert/Monitor (08/19/17 06:15) Ecg Monitoring (08/19/17 06:15) Oximetry (08/19/17 06:15) Urinary Catheter Insert/Apply (08/19/17 06:15) Morphine Inj (Morphine Inj) (08/19/17 06:45) Ondansetron Inj (Zofran Inj) (08/19/17 06:45) Lorazepam Inj (Ativan Inj) (08/19/17 07:00) Lidocaine 2% Jelly (Xylocaine 2% Jelly) (08/19/17 08:30) Urine Culture (08/19/17 10:00) Lactated Ringer's 1000 Ml Inj (Lr 1000 M (08/19/17 13:30) Sodium Chlorid 0.9% 500 Ml Inj (Ns 500 M (08/19/17 13:30) Metoprolol Tartrate (Lopressor) (08/19/17 13:30) Povidone Iod 5% Antisepsis Kit (Betadine (08/19/17 13:30) Chlorhexidine 2% Cloth (Chlorhexidine 2% (08/19/17 13:30) Insulin Human Regular Inj (Novolin R Inj (08/19/17 13:30) Cefazolin 2 Gm Premix (Ancef 2 Gm Premix (08/19/17 15:38) Urinary Catheter Management JIMENA.Q8H (08/19/17 15:55) [facility] [place] (08/19/17 16:45) *Morphine Inj (*Morphine Inj Periprocedu (08/19/17 16:52) Attending Discharge Order (08/19/17 ) Secondary Rec Up To 2 Hrs (08/19/17 ) Class Iv Pacu Ea 30 Min (08/19/17 ) General/Pacu (08/19/17 ) Post Anesthesia Oxygen (08/19/17 ) Labs Laboratory Tests Test 08/19/17 06:35 08/19/17 10:00 White Blood Count 6.6 TH/MM3 Red Blood Count 2.71 MIL/MM3 Hemoglobin 8.6 GM/DL Hematocrit 25.2 % Mean Corpuscular Volume 93.1 FL Mean Corpuscular Hemoglobin 31.6 PG Mean Corpuscular Hemoglobin Concent 33.9 % Red Cell Distribution Width 15.6 % Platelet Count 180 TH/MM3 Mean Platelet Volume 8.5 FL Neutrophils (%) (Auto) 80.9 % Lymphocytes (%) (Auto) 9.6 % Monocytes (%) (Auto) 8.8 % Eosinophils (%) (Auto) 0.0 % Basophils (%) (Auto) 0.7 % Neutrophils # (Auto) 5.3 TH/MM3 Lymphocytes # (Auto) 0.6 TH/MM3 Monocytes # (Auto) 0.6 TH/MM3 Eosinophils # (Auto) 0.0 TH/MM3 Basophils # (Auto) 0.0 TH/MM3 CBC Comment DIFF FINAL Differential Comment Prothrombin Time 10.5 SEC Prothromb Time International Ratio 1.0 RATIO Activated Partial Thromboplast Time 26.4 SEC Blood Urea Nitrogen 19 MG/DL Creatinine 0.95 MG/DL Random Glucose 122 MG/DL Calcium Level 8.9 MG/DL Sodium Level 137 MEQ/L Potassium Level 4.2 MEQ/L Chloride Level 104 MEQ/L Carbon Dioxide Level 27.3 MEQ/L Anion Gap 6 MEQ/L Estimat Glomerular Filtration Rate 77 ML/MIN Urine Color ORANGE Urine Turbidity HAZY Urine pH 5.5 Urine Specific [place] 1.020 Urine Protein 30 mg/dL Urine Glucose (UA) NEG mg/dL Urine Ketones NEG mg/dL Urine Occult Blood LARGE Urine Nitrite NEG Urine Bilirubin NEG Urine Urobilinogen LESS THAN 2.0 MG/DL Urine Leukocyte Esterase MOD Urine RBC 83 /hpf Urine WBC 50 /hpf Urine Bacteria RARE /hpf Microscopic Urinalysis Comment CULTURE INDICATED MDM Medical Decision Making Medical Screen Exam Complete: Yes Emergency Medical Condition: Yes Medical Record Reviewed: Yes Differential Diagnosis Prostate enlargement with urinary retention, versus ureteral stricture Narrative Course During the course of the patient's emergency department visit, the patient's history, examination, and differential diagnosis were reviewed with the patient. The patient was placed on a cardiac cath tech with oximetry and frequent blood pressure monitoring. The patient had IV access obtained and blood work sent for analysis. Multiple attempts were made with various sizes of urinary catheter for placement of catheter, however in spite of smaller sizes being used and a coud catheter being attempted, no catheter was able to be passed into the bladder. A call was placed out to the patient's urologist, Dr. Peña at 6:35 AM. A bladder scan was done and the patient had 550 mL of urine in the bladder. The patient was initially provided morphine for pain, Zofran for nausea. The patient continued to have pain and reported that Valium has worked for his pain in the past. The patient was instead given Ativan 0.5 mg IV per The patient's final laboratory studies and evaluation by the urologist are pending at the conclusion of my shift. Dr. Altamirano did call back regarding this patient's case at approximately 7:38 AM. He explained that 1 of the urologist will be in to evaluate the patient in the emergency department. The patient's case was checked out to the oncoming emergency physician to disposition the patient after the conclusion of his evaluation and treatment. Diagnosis Primary Impression: Urinary retention Additional Impression: History of urethral stricture Milly Jara MD Aug 19, 2017 06:08
[2017-08-19] MEDS ORDERED: ONDANSETRON HCL 4 MG/2 ML VIAL IV PUSH ONE (06:45)
[2017-08-19] MEDS ORDERED: MORPHINE SULFATE 4 MG/ML INJ IV PUSH ONE (06:45)
[2017-08-19 06:55] LABS: AUTOMATED NEUTROPHIL # 5.3 TH/MM3 (1.8-7.7); BASOPHIL % 0.7 % (0.0-2.0); HEMATOCRIT 25.2 % (39.0-51.0); HEMOGLOBIN 8.6 GM/DL (13.0-17.0); LYMPH % 9.6 % (9.0-44.0); LYMPHOCYTE # 0.6 TH/MM3 (1.0-4.8); MEAN CELL VOLUME 93.1 FL (80.0-100.0); MEAN CORPUSCULAR HEMOGLOBIN 31.6 PG (27.0-34.0); MEAN CORPUSCULAR HGB CONC 33.9 % (32.0-36.0); MEAN PLATELET VOLUME 8.5 FL (7.0-11.0); MONO % 8.8 % (0.0-8.0); MONOCYTE # 0.6 TH/MM3 (0-0.9); NEUT % 80.9 % (16.0-70.0); PLATELET COUNT 180 TH/MM3 (150-450); RED BLOOD COUNT 2.71 MIL/MM3 (4.50-5.90); RED CELL DISTRIBUTION WIDTH 15.6 % (11.6-17.2); WHITE BLOOD COUNT 6.6 TH/MM3 (4.0-11.0)
[2017-08-19] MEDS ORDERED: LORazepam 2 MG/ML VIAL IV PUSH ONE (07:00)
[2017-08-19 07:06] LABS: PROTHROMBIN TIME - PATIENT 10.5 SEC (9.8-11.6)
[2017-08-19 07:10] VITALS: BP 144/67; PULSE 62; RESP 21; O2SAT 99
[2017-08-19 07:15] LABS: BICARBONATE 27.3 MEQ/L (21.0-32.0); CALCIUM 8.9 MG/DL (8.5-10.1); CREATININE 0.95 MG/DL (0.60-1.30)
[2017-08-19] MEDS ORDERED: LIDOCAINE 2% JELLY 5 ML TUBE TOPICAL ONE (08:30)
--- NOTE | 2017-08-19 09:29 | PD ---
Physical Exam Date Seen by Provider: Aug 19, 2017 Time Seen by Provider: 07:00 Narrative The patient was signed out to me by Dr. Jara at change of shift. This is a 72 -year-old male who presents from a shelter after his [place] was displaced. Patient has a history of urethral strictures. There were multiple attempts to replace the catheter however unsuccessful. Dr. Jara states that several attempts were made using varying sizes of catheters including smoke 2 days with no success. Dr. Summers, on-call urologist, was called for assistance. Data Data Last Documented VS Vital Signs Date Time Temp Pulse Resp B/P (MAP) Pulse Ox O2 Delivery O2 Flow Rate FiO2 08/19/17 18:17 98.9 68 18 138/67 (90) 99 Nasal Cannula 2 Orders Orders Complete Blood Count With Diff (08/19/17 06:15) Basic Metabolic Panel (Bmp) (08/19/17 06:15) Prothrombin Time / Inr (Pt) (08/19/17 06:15) Act Partial Throm Time (Ptt) (08/19/17 06:15) Urinalysis - C+S If Indicated (08/19/17 06:15) Iv Access Insert/Monitor (08/19/17 06:15) Ecg Monitoring (08/19/17 06:15) Oximetry (08/19/17 06:15) Urinary Catheter Insert/Apply (08/19/17 06:15) Morphine Inj (Morphine Inj) (08/19/17 06:45) Ondansetron Inj (Zofran Inj) (08/19/17 06:45) Lorazepam Inj (Ativan Inj) (08/19/17 07:00) Lidocaine 2% Jelly (Xylocaine 2% Jelly) (08/19/17 08:30) Urine Culture (08/19/17 10:00) Lactated Ringer's 1000 Ml Inj (Lr 1000 M (08/19/17 13:30) Sodium Chlorid 0.9% 500 Ml Inj (Ns 500 M (08/19/17 13:30) Metoprolol Tartrate (Lopressor) (08/19/17 13:30) Povidone Iod 5% Antisepsis Kit (Betadine (08/19/17 13:30) Chlorhexidine 2% Cloth (Chlorhexidine 2% (08/19/17 13:30) Insulin Human Regular Inj (Novolin R Inj (08/19/17 13:30) Cefazolin 2 Gm Premix (Ancef 2 Gm Premix (08/19/17 15:38) Urinary Catheter Management JIMENA.Q8H (08/19/17 15:55) [facility] Nursing Information (08/19/17 16:45) *Morphine Inj (*Morphine Inj Periprocedu (08/19/17 16:52) Attending Discharge Order (08/19/17 ) Secondary Rec Up To 2 Hrs (08/19/17 ) Class Iv Pacu Ea 30 Min (08/19/17 ) General/Pacu (08/19/17 ) Post Anesthesia Oxygen (08/19/17 ) Lidocaine Pf 1% Inj (Xylocaine-Mpf 1% In (08/19/17 12:00) Phenyleph/Ns 1000 Mcg/10ml Syr (Neosynep (08/19/17 12:00) Dexamethasone Inj (Decadron Inj) (08/19/17 12:00) Ondansetron Inj (Zofran Inj) (08/19/17 12:00) Cefazolin Inj (Ancef Inj) (08/19/17 12:00) Propofol 200 Mg/20 Ml Inj (Diprivan 200 (08/19/17 12:00) Labs Laboratory Tests Test 08/19/17 06:35 08/19/17 10:00 White Blood Count 6.6 TH/MM3 Red Blood Count 2.71 MIL/MM3 Hemoglobin 8.6 GM/DL Hematocrit 25.2 % Mean Corpuscular Volume 93.1 FL Mean Corpuscular Hemoglobin 31.6 PG Mean Corpuscular Hemoglobin Concent 33.9 % Red Cell Distribution Width 15.6 % Platelet Count 180 TH/MM3 Mean Platelet Volume 8.5 FL Neutrophils (%) (Auto) 80.9 % Lymphocytes (%) (Auto) 9.6 % Monocytes (%) (Auto) 8.8 % Eosinophils (%) (Auto) 0.0 % Basophils (%) (Auto) 0.7 % Neutrophils # (Auto) 5.3 TH/MM3 Lymphocytes # (Auto) 0.6 TH/MM3 Monocytes # (Auto) 0.6 TH/MM3 Eosinophils # (Auto) 0.0 TH/MM3 Basophils # (Auto) 0.0 TH/MM3 CBC Comment DIFF FINAL Differential Comment Prothrombin Time 10.5 SEC Prothromb Time International Ratio 1.0 RATIO Activated Partial Thromboplast Time 26.4 SEC Blood Urea Nitrogen 19 MG/DL Creatinine 0.95 MG/DL Random Glucose 122 MG/DL Calcium Level 8.9 MG/DL Sodium Level 137 MEQ/L Potassium Level 4.2 MEQ/L Chloride Level 104 MEQ/L Carbon Dioxide Level 27.3 MEQ/L Anion Gap 6 MEQ/L Estimat Glomerular Filtration Rate 77 ML/MIN Urine Color ORANGE Urine Turbidity HAZY Urine pH 5.5 Urine Specific [place] 1.020 Urine Protein 30 mg/dL Urine Glucose (UA) NEG mg/dL Urine Ketones NEG mg/dL Urine Occult Blood LARGE Urine Nitrite NEG Urine Bilirubin NEG Urine Urobilinogen LESS THAN 2.0 MG/DL Urine Leukocyte Esterase MOD Urine RBC 83 /hpf Urine WBC 50 /hpf Urine Bacteria RARE /hpf Microscopic Urinalysis Comment CULTURE INDICATED MDM Medical Record Reviewed: Yes Supervised Visit with RACHELL: No Narrative Course 72-year-old male with a history of urethral stricture, presents from the shelter with displaced catheter. The patient has roughly 500 cc of urine in his bladder from the bladder scan. Multiple attempts to replace the catheter were tried with no success. Dr. Moe has been consulted for assistance in placing the catheter. Please note that Dr. Altamirano's PA, Miguelito , presented to the bedside and was unable to place a catheter. She did take the patient to the OR for stent of the catheter. The patient be discharged the same area after procedure. Diagnosis Primary Impression: Urinary retention Additional Impressions: History of urethral stricture Recent right humeral neck fracture Cosme Cueva MD Aug 19, 2017 09:29
[2017-08-19 10:33] LABS: BACTERIA, URINE RARE /hpf; BILIRUBIN, URINE NEG (NEG); BLOOD, URINE LARGE (NEG); GLUCOSE,URINE NEG (NEG); KETONE, URINE NEG (NEG); NITRITE,URINE NEG (NEG); PH, URINE 5.5 (5.0-8.5); URINE COLOR ORANGE (YELLW/STRAW); URINE LEUKOCYTE ESTERASE MOD (NEG)
--- NOTE | 2017-08-19 11:52 | PD.CONS ---
HPI Service Urology Consult Requested By ER team Reason for Consult Difficult bruno Primary Care Physician Sarath Bob MD Diagnosis: (1) Urinary retention ICD Code: R33.9 - Retention of urine, unspecified (2) Urethral stricture ICD Code: N35.9 - Urethral stricture, unspecified History of Present Illness 72 yo male h/o urethral stricture s/p dilation in past, on CIC, presents to ER overnight with inability to urinate or pass catheter. He had Cysto/Urethral dilation and bruno placement by Dr Graves on 06/30/[address] Peña for Urethral stricture management. He feels the urge to void but cannot start his stream. He is very uncomfortable. Ihas overflow incontinence. Bladder scan showed 560cc in the bladder. Multiple attempts were made to pass a catheter of different sizes by ER team, but failed. Urology was subsequently consulted. Currently, denies fevers, chills, nausea, vomiting, flank pain. He had a similar situation also in December 2016 which required operative intervention by Dr. Lee. He takes Xarelto for atrial fibrillation. Urology attempted to pass 16Fr coude bruno but severe resistance met and no further attempts were made, he will need to go to OR for dilation. 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 Obese SKIN: Cool and dry. HEAD: Atraumatic. Normocephalic. EYES: Pupils equal round and reactive. NECK: Supple, nontender CARDIOVASCULAR: Regular rate and rhythm without murmurs, gallops, or rubs. RESPIRATORY: Clear to auscultation. Breath sounds equal bilaterally. No wheezes , rales, or rhonchi. GASTROINTESTINAL: Abdomen soft, non-tender, ND GENITOURINARY: Normal scrotal and testicular exam. Circumcised, + Hypospadia MUSCULOSKELETAL: not assessed NEUROLOGICAL: Awake and alert. Lab results reviewed: Yes Laboratory Tests Test 08/19/17 06:35 08/19/17 10:00 White Blood Count 6.6 Red Blood Count 2.71 Hemoglobin 8.6 Hematocrit 25.2 Mean Corpuscular Volume 93.1 Mean Corpuscular Hemoglobin 31.6 Mean Corpuscular Hemoglobin Concent 33.9 Red Cell Distribution Width 15.6 Platelet Count 180 Mean Platelet Volume 8.5 Neutrophils (%) (Auto) 80.9 Lymphocytes (%) (Auto) 9.6 Monocytes (%) (Auto) 8.8 Eosinophils (%) (Auto) 0.0 Basophils (%) (Auto) 0.7 Neutrophils # (Auto) 5.3 Lymphocytes # (Auto) 0.6 Monocytes # (Auto) 0.6 Eosinophils # (Auto) 0.0 Basophils # (Auto) 0.0 CBC Comment DIFF FINAL Differential Comment Prothrombin Time 10.5 Prothromb Time International Ratio 1.0 Activated Partial Thromboplast Time 26.4 Blood Urea Nitrogen 19 Creatinine 0.95 Random Glucose 122 Calcium Level 8.9 Sodium Level 137 Potassium Level 4.2 Chloride Level 104 Carbon Dioxide Level 27.3 Anion Gap 6 Estimat Glomerular Filtration Rate 77 Urine Color ORANGE Urine Turbidity HAZY Urine pH 5.5 Urine Specific [place] 1.020 Urine Protein 30 Urine Glucose (UA) NEG Urine Ketones NEG Urine Occult Blood LARGE Urine Nitrite NEG Urine Bilirubin NEG Urine Urobilinogen LESS THAN 2.0 Urine Leukocyte Esterase MOD Urine RBC 83 Urine WBC 50 Urine Bacteria RARE Microscopic Urinalysis Comment CULTURE INDICATED Date/Time Source Procedure Growth Status 08/19/17 10:00 Urine Clean Catch Urine Culture Pending Received Result Diagram: 08/19/1735 08/19/1735 Assessment and Plan Assessment and Plan 72 yo male h/o urethral stricture s/p dilation in past last time on 06/2017, on CIC at home. pt of Dr Peña Currently unable to do CIC or void and is in retention ER team and Urology tried to place bruno cath, many attempts with different types/sizes bruno, all were unsuccessful - Continue management at ER -Keep Pt NPO for OR procedure later today - Consent for Cysto, urethral dialtion, possible TURBN vs SPT placement signed - Procedure will be done by Dr Altamirano or Dr Peña Discussed with Dr Adarsh FLETCHER attending who agrees with this plan Discussed Condition With ER team Joshua Rosario Aug 19, 2017 11:52
[2017-08-19] MEDS ORDERED: ONDANSETRON HCL 4 MG/2 ML VIAL IV ONE (12:00)
[2017-08-19] MEDS ORDERED: LIDOCAINE HCL 1% PF 5 ML SYRINGE OTHER ONE (12:00)
[2017-08-19] MEDS ORDERED: PROPOFOL 200 MG/20 ML AMP IV ONE (12:00)
[2017-08-19] MEDS ORDERED: PHENYLEPH/NS 1000 MCG/10 ML SYR IV ONE (12:00)
[2017-08-19] MEDS ORDERED: ceFAZolin INJ 1,000 MG VIAL IV ONE (12:00)
[2017-08-19] MEDS ORDERED: DEXAMETHASONE SOD PHOS 4 MG/ML VIAL IV ONE (12:00)
[2017-08-19 12:40] VITALS: BP 127/63; TEMP 97.8
[2017-08-19] MEDS ORDERED: POVIDONE IODINE 5% (ANTISEPSIS KIT) 4 APPLICATIONS EACH NARE PRN (13:30)
[2017-08-19] MEDS ORDERED: LACTATED RINGER'S 1000 ML IV PRN (13:30)
[2017-08-19] MEDS ORDERED: METOPROLOL TARTRATE 25 MG TAB PO PRN (13:30)
[2017-08-19] MEDS ORDERED: SODIUM CHLORID 0.9% 500 ML IV PRN (13:30)
[2017-08-19] MEDS ORDERED: CHLORHEXIDINE GLUCONATE 2 % 1 PACK (2 CLOTHS) TOPICAL PRN (13:30)
[2017-08-19] MEDS ORDERED: INSULIN HUMAN REGULAR 1,000 UNITS/10 ML VIAL SQ PRN (13:30)
[2017-08-19] MEDS ORDERED: ceFAZolin 2 GM PREMIX 50 ML IV ONE (15:38)
--- NOTE | 2017-08-19 16:42 | MP ---
cc: Kd Peña DO DATE OF OPERATION: 08/19/2017 PREOPERATIVE DIAGNOSIS: Urethral stricture. POSTOPERATIVE DIAGNOSIS: Urethral stricture. PROCEDURE: Cystoscopy, direct visual internal urethrotomy, Bustamante over a wire placement. SURGEON: Kd Peña DO ANESTHESIA: General LMA. FLUIDS: 400 mL of crystalloid. BLOOD LOSS: Minimal. COMPLICATIONS: None. DRAINS: A 16 Ni[place] Councill tip catheter. The patient tolerated the procedure well, was transferred to recovery in stable condition. Rui Campo is a 72-year-old male with history of urethral stricture disease, who had difficulty urinating over the last week and attempt was made by the staff to place a Bustamante catheter. This was unsuccessful. He has had prior cystoscopies with urethral dilatation in the past. Patient was brought to the operating room, identified by myself as Rui Campo. He was placed in the dorsal lithotomy position, prepped and draped in usual sterile fashion, received pre-procedure antibiotics, and general LMA anesthesia was administered. A 19 Niuean cystoscope was inserted into the penile urethra, and in the penile urethra, there was a stricture identified. A wire initially would not pass through the stricture. Using the urethrotome, a small incision was made at the area of the pinpoint stricture and incised. A 0.35 Sensor wire was then passed through the opening into the bladder. Ureteral dilators were used to dilate up to a 16 Niuean. I was then able to pass the 19 Niuean cystoscope through the strictured area and into the bladder. Pancystoscopy did not reveal any abnormalities. The wire was in the bladder. The scope was removed, and then the 16 Niuean Councill tip catheter was placed over the wire with clear urine draining. He tolerated the procedure well. He will follow up in the office in 10 days to undergo a void trial at that time. DO YAHAIRA Mitchell/ALEXEI , 04:22 PM , 04:41 PM
[2017-08-19] MEDS ORDERED: DO NOT ADM ANY ANTICOAGULANT DRUGS PRN (16:45)
[2017-08-19] MEDS ORDERED: *morphine SULFATE 4 MG/ML PERIprocedure ONLY ONE (16:52)
[2017-08-19 18:17] VITALS: BP 138/67; PULSE 68; RESP 18; TEMP 98.9; O2SAT 99
== END 2017-08-19 18:17 | disposition home or self-care (01) ==
LOC: NEPE 05:33
DX: N35.9 Urethral stricture, unspecified (principal); R33.9 Retention of urine, unspecified; I11.0 Hypertensive heart disease with heart failure; I50.9 Heart failure, unspecified; I48.91 Unspecified atrial fibrillation; I25.10 Atherosclerotic heart disease of native coronary artery without angina pectoris; M19.90 Unspecified osteoarthritis, unspecified site; K21.9 Gastro-esophageal reflux disease without esophagitis; Z46.6 Encounter for fitting and adjustment of urinary device
CPT/HCPCS: 80048; 81001; 85025; 85610; 85730; 87086; 96374; 96375; 99284; C1769; J0690; J1100; J2060; J2270; J2370; J2405

== ENCOUNTER 2018-03-06 12:40 | Observation (INO) ==
[2018-03-06] MEDS ORDERED: Lidocaine 5% Patch T-DERMAL ONE (13:31)
[2018-03-06] MEDS ORDERED: diazePAM 2 MG Tablet PO ONE (13:32)
--- NOTE | 2018-03-06 13:59 | ED ---
HPI General Chief complaint: Back Pain/Injury Stated complaint: medical/[employer] [facility] Time Seen by Provider: 03/06/18 13:21 Source: patient, EMS and RN notes reviewed Mode of arrival: EMS History of Present Illness HPI narrative: 73yM brought in by EMS for back pain. The patient states that he has chronic lower back pain secondary to disc herniations at L3-L5; over the past week, he says that the pain has gotten more severe. He denies trauma, overuse, or heavy lifting; he reports "burning" pain in his midline lower back which radiates down the back of his right leg and occasionally his left leg as well. Denies weakness but reports difficulty walking secondary to pain; he denies saddle anesthesia, lower extremity paresthesias, or change in bowel habits/ incontinence. He has a chronic Bustamante catheter. He had X-rays performed 2 days ago which showed moderate disc space loss, degenerative endplate changes , and osteophytes; he is unable to get an MRI as he has a pacemaker. He has been taking oxycodone for pain with some relief. Related Data Home Medications Medication Instructions Recorded Confirmed acetaminophen 650 mg PO QID PRN 03/06/18 03/06/18 baclofen 10 mg PO QID 03/06/18 03/06/18 calcium carbonate-vitamin D3 1 tab PO BID 03/06/18 03/06/18 [Caltrate 600 + D] escitalopram oxalate 10 mg PO DAILY 03/06/18 03/06/18 ferrous sulfate 325 mg PO DAILY 03/06/18 03/06/18 folic acid 1 mg PO DAILY 03/06/18 03/06/18 furosemide [Lasix] 20 mg PO Q6HR 03/06/18 03/06/18 magnesium oxide-Mg AA chelate 400 mg PO DAILY 03/06/18 03/06/18 [Magnesium (oxide/AA chelate)] menthol [Biofreeze (menthol)] 4 % TOPICAL PRN PRN 03/06/18 03/06/18 methotrexate sodium 2.5 mg PO DAILY 03/06/18 03/06/18 cllufjed-jyooiswp-tyujkap fum 1 tbsp PO DAILY 03/06/18 03/06/18 [Multi Vitamin] bajvf-ocsfb-rdcoiqg-pramoxine 1 applic TOPICAL DAILY 03/06/18 03/06/18 [Triple Antibiotic (pram) Extra] nitroglycerin 0.4 mg SUBLINGUAL Q5-15M PRN 03/06/18 03/06/18 nystatin 1 applic TOPICAL BID 03/06/18 03/06/18 oxycodone-acetaminophen 1 tab PO Q6H PRN 03/06/18 03/06/18 rivaroxaban 10 mg PO DAILY 03/06/18 03/06/18 ropinirole 2 mg PO TID 03/06/18 03/06/18 tamsulosin [Flomax] 0.4 mg PO DAILY 03/06/18 03/06/18 Allergies Allergy/AdvReac Type Severity Reaction Status Date / Time *MDRO Multi-Drug Resistant AdvReac Unknown Uncoded 08/19/17 05:58 Organism Review of Systems ROS: all other systems reviewed are negative Constitutional Denies fever(s) Eyes Denies blurry vision ENT Denies nasal congestion Cardiovascular Denies chest pain Respiratory Denies cough Gastrointestinal Denies fecal incontinence Genitourinary Denies dysuria Musculoskeletal Reports back pain and Denies neck pain Neurologic Denies weakness PMFSH History History Provided By: Patient Medical History Medical History Fall (Acute) Insomnia (Acute) Anxiety (Acute) Edema (Acute) Hematuria (Acute) Chronic back pain (Acute) Hyperlipidemia (Acute) Afib (Acute) Anemia (Acute) HTN (hypertension) (Acute) Anemia (Acute) Atherosclerosis (Acute) BPH (benign prostatic hyperplasia) (Acute) CHF (congestive heart failure) (Acute) Chronic kidney disease (Acute) Depression (Acute) Rheumatoid arthritis (Acute) Social History Social History Substance History: No History of Abuse Second Hand Smoke Exposure: No Smoking Status: Never smoker How Often Do You Have a Drink Containing Alcohol: Never Recent Travel in [facility] within the Last 8 Weeks: No Recent Out of Country Travel within the Last 8 Weeks: No Exam Const Other: Appears uncomfortable [facility] Head: normocephalic and atraumatic Face and sinus: normal facial exam Eyes General: appearance normal, both eyes and all related structures Pupils: PERRL Chest Chest: normal inspection of the chest Resp Effort & Inspection: normal respiratory effort Auscultation: no rhonchi and no wheezes Cardio Rate: regular rate Rhythm: regular rhythm GI Inspection: non-distended Palpation: soft and nontender Other: Bustamante present Back/Spine/Pelvis Thoracic/Lumbar Spine: lumbar spinal tenderness and straight leg raise positive (right) Skin General: no rashes or lesions noted Neuro General: alert, awake and oriented x3 Other: Motor strength 5/5 in bilateral hip and knee flexion/ extension and ankle plantar/ dorsiflexion No foot drop Patient reports history of right lateral hip numbness secondary to meralgia paresthetica; sensation is otherwise intact to all dermatomes of lower extremities Extrem Other: Bilateral lower extremity edema/ venous stasis changes Psych Affect: normal affect Course Consultations Consultation #1: Patient unable to ambulate more than 3 feet in the ED due to continued severe pain. Case discussed with Dr. Russell of neurosurgery, who will consult. Will d/w hospitalist. Time: 17:05 Initial Documented Vital Signs Temperature 97.5 F L 03/06/18 12:45 Pulse Rate 72 03/06/18 12:45 Respiratory Rate 18 03/06/18 12:45 Blood Pressure 127/61 03/06/18 12:45 Pulse Oximetry 95 03/06/18 12:45 Last Documented Vital Signs Temperature 97.5 F L 03/06/18 12:45 Pulse Rate 70 03/06/18 14:03 Respiratory Rate 16 03/06/18 14:03 Blood Pressure 140/68 03/06/18 14:03 Pulse Oximetry 98 03/06/18 14:03 Medical Decision Making [facility] Narrative Medical decision making narrative: Assessment: 73yM presenting with low back pain Plan: Pain control CT lumbar spine Addendum: Patient unable to ambulate secondary to pain, also found to have UTI. Case discussed with Dr. Russell of neurosurgery, who recommends lumbar brace and will consult, and with JARVIS ARCHULETA. Medical Screen Exam Complete: Yes Emergency Medical Condition: Yes Differential Diagnosis Differential Diagnosis: Differential diagnosis includes, but is not limited to: sciatica, disc herniation, compression/ pathologic fracture, spinal stenosis. Lower suspicion for cauda equina or conus medullaris. Lab Data Lab Results 03/06/18 Range/Units 13:50 Urine Color Yellow (Yellw/Straw) Urine Clarity Cloudy H (Clear) Urine pH 6.0 (5.0-8.5) Ur Specific Follett 1.014 (1.002-1.035) Urine Protein Negative (Neg-Trace) mg/dL Urine Glucose (UA) Negative (Negative) mg/dL Urine Ketones Negative (Negative) mg/dL Urine Occult Blood Negative (Negative) Urine Nitrate Positive H (Negative) Urine Bilirubin Negative (Negative) Urine Urobilinogen 2.0 H (Less than 2) mg/dL Ur Leukocyte Esterase Large H (Negative) Urine RBC 2 (0-3) /hpf Urine WBC 58 H (0-5) /hpf Urine WBC Clumps Few H (None) Ur Squamous Epith Cells <1 (0-5) /hpf Urine Bacteria Few H (None) /hpf Urine Mucus Few H (Occasional) /lpf Micro UA Comment Culture indicated Ur Microscopic Review Not Reportable Urine Culture Comments Culture indicated Imaging Data Radiologist's impression: Lumbar Spine CT 03/06/18 13:31 CONCLUSION: 1. Moderate to severe central spinal stenosis at L4-5 secondary to degenerative anterolisthesis and hypertrophic facet arthropathy. 2. Superior endplate depression of L5 characteristic of mild compression fracture however age is uncertain. 3. Moderate bilateral foraminal encroachment at L4-5 4. No evidence of significant disc herniation. Discharge Plan Physicians Team ED Provider: Marisel Oliveira Primary Care Provider: Sarath Bob Other Providers: Shantanu Russell Rxs /Orders / Referrals /Forms Prescriptions: No Action acetaminophen 325 mg Tablet 650 mg PO QID PRN (Reason: Pain) RF: 0 nystatin 100,000 unit/gram Ointment 1 applic TOPICAL BID RF: 0 methotrexate sodium 2.5 mg Tablet 2.5 mg PO DAILY RF: 0 oxycodone-acetaminophen 10-325 mg Tablet 1 tab PO Q6H PRN (Reason: Pain (Scale Score 7-10)) RF: 0 tamsulosin [Flomax] 0.4 mg Capsule,Extended Release 24hr 0.4 mg PO DAILY RF: 0 baclofen 10 mg Tablet 10 mg PO QID RF: 0 ropinirole 2 mg Tablet 2 mg PO TID RF: 0 ferrous sulfate 325 mg (65 mg iron) Tablet 325 mg PO DAILY RF: 0 nitroglycerin 0.4 mg Tablet, Sublingual 0.4 mg SUBLINGUAL Q5-15M PRN (Reason: Chest Pain) RF: 0 folic acid 1 mg Tablet 1 mg PO DAILY RF: 0 furosemide [Lasix] 20 mg Tablet 20 mg PO Q6HR RF: 0 escitalopram oxalate 10 mg Tablet 10 mg PO DAILY RF: 0 magnesium oxide-Mg AA chelate [Magnesium (oxide/AA chelate)] 300 mg Capsule 400 mg PO DAILY RF: 0 oqmsy-fnkzi-yisermj-pramoxine [Triple Antibiotic (pram) Extra] 3.5-500-10,000 bw-laic-xjzw/g Ointment 1 applic TOPICAL DAILY RF: 0 katckspx-cypkeazc-fivdlhq fum [Multi Vitamin] 9 mg iron/15 mL Liquid 1 tbsp PO DAILY RF: 0 rivaroxaban 10 mg Tablet 10 mg PO DAILY RF: 0 menthol [Biofreeze (menthol)] 4 % Gel 4 % Topical PRN PRN (Reason: Pain) RF: 0 calcium carbonate-vitamin D3 [Caltrate 600 + D] 600 mg (1,500 mg)-800 unit Tablet,Chewable 1 tab PO BID RF: 0 Discharge Interventions Interventions: Vital Signs Last Done: 03/06/18 14:03 Status ED Status: With Doctor
[2018-03-06 14:32] LABS: Bacteria,Urine Few /hpf; Bilirubin,Urine Negative (Negative); Clarity,Urine Cloudy (Clear); Color,Urine Yellow (Yellw/Straw); Glucose,Urine (UA) Negative (Negative); Leukocyte Esterase,Urine Large (Negative); Mucus,Urine Few /lpf (Occasional); Nitrite,Urine Positive (Negative); Specific Gravity,Urine 1.014 (1.002-1.035); Squamous Epithelial Cell,Urine <1 /hpf (0-5)
--- NOTE | 2018-03-06 15:30 | CT ---
EXAM DATE: 03/06/2018 3:17 PM EDT AGE/SEX: 73 years / Male INDICATIONS: Lower back pain going down legs bilaterally. CLINICAL DATA: This is the patient's initial encounter. Patient reports that signs and symptoms have been present for 1 day and indicates a pain score of 4/10. MEDICAL/SURGICAL HISTORY: Congestive heart failure. Hypertension. None. RADIATION DOSE: 45.99 CTDI (mGy) COMPARISON: TLI, XR SPINE LUMBAR AP AND LAT, 05/12/2017. . TECHNIQUE: Contiguous axial images were acquired with a multirow detector CT scanner without contras t. Multiplanar reconstructions in the sagittal and coronal plane were also performed. Using automate d exposure control and adjustment of the mA and/or kV according to patient size, radiation dose was k ept as low as reasonably achievable to obtain optimal diagnostic quality images. DICOM format image data is available electronically for review and comparison. FINDINGS: ALIGNMENT: A grade 1 anterolisthesis is identified at L4-5. AP lumbar alignment is otherwise well pr eserved.. FACET AND OSSEOUS STRUCTURES: Mild loss of vertebral body height is identified involving the L5 vert ebral body. There is slight superior endplate depression which has become apparent when compared to p rior plain radiographs in 2017. Vertebral body height is otherwise well-maintained. Severe facet arthropathy is identified at L4-5 an d L5-S1 especially on the left. INTERVERTEBRAL DISC SPACES: Mild degenerative disc disease is noted. L1-2: Mild degenerative disc disease with mild broad-based disc bulge. L2-3 and L3-4: Unremarkable L4-5: Mild degenerative disc disease with mild posterior annular bulging. There is no evidence of foc al disc herniation. Moderate foraminal encroachment is seen bilaterally due to the anterolisthesis an d hypertrophic facet arthropathy. L5-S1: Unremarkable NEUROLOGIC STRUCTURES: Significant narrowing of the central spinal canal is noted at L4-5. . CONCLUSION: 1. Moderate to severe central spinal stenosis at L4-5 secondary to degenerative anterolisthesis and hypertrophic facet arthropathy. 2. Superior endplate depression of L5 characteristic of mild compression fracture however age is un certain. 3. Moderate bilateral foraminal encroachment at L4-5 4. No evidence of significant disc herniation. Electronically signed by: Nikhil Dominguez MD 03/06/2018 3:29 PM EDT
[2018-03-06] MEDS ORDERED: Morphine Sulfate Inj 2 MG/ML Vial IV.PUSH ONE (16:58)
[2018-03-06] MEDS ORDERED: Bisacodyl 10 MG Supp RECTAL PRN (17:56)
[2018-03-06] MEDS ORDERED: Acetaminophen 325 MG Tablet PO PRN (17:57)
[2018-03-06] MEDS ORDERED: Morphine Inj 4 MG/ML Vial IV.PUSH PRN (18:03)
[2018-03-06] MEDS ORDERED: oxyCODONE/Acetaminophen 10/325 Tablet PO PRN (18:03)
[2018-03-06] MEDS ORDERED: Naloxone Inj 0.4 MG/ML Vial IV.PUSH PRN (18:03)
--- NOTE | 2018-03-06 18:12 | P.CONNS ---
History of Present Illness Service: ED Consult date: 03/06/18 Requesting Physician: Marisel Oliveira Reason for Consult: worsening back pain Primary Care Provider: Sarath Bob MD Chief Complaint: worsening back pain History of Present Illness: 73yoM who has chronic medical conditions, with 3 weeks of persistent back pain ( 10) that makes it difficult to arise. Prior yearslong history of back pain worse when he is upright, leaning forward (e.g. cooking). He is a pianist and a commercial insurance underwriter, due for ulnar nerve surgery in a few weeks bilaterally, has chronic urinary retention with a suprapubic cath (last changed ~2 weeks ago, has current UTI discovered by ED) due to see Urology next week for a possible stricture, pacemaker, h/o CABG, abdominal surgeries. [facility] - History History Provided By: Patient - Medical History Medical History: Medical History (Last Updated 03/06/18 @ 18:38 by PAZ Tristan) Fall (Acute) Insomnia (Acute) Anxiety (Acute) Edema (Acute) Hematuria (Acute) Chronic back pain (Acute) Hyperlipidemia (Acute) Afib (Acute) Anemia (Acute) HTN (hypertension) (Acute) Anemia Atherosclerosis BPH (benign prostatic hyperplasia) CHF (congestive heart failure) Chronic kidney disease Depression Hx of fracture of femur Rheumatoid arthritis Squamous cell carcinoma of scalp - Surgical History Surgical History: Surgical History (Last Updated 03/06/18 @ 18:37 by PAZ Tristan) H/O shoulder surgery History of lung surgery S/P CABG x 5 - Family History Family History: Family History (Last Updated 03/06/18 @ 18:37 by PAZ Tristan) Other Family history non-contributory - Tobacco History Second Hand Smoke Exposure: No Tobacco Use In Past 30 Days: No Smoking Status: Never smoker - Alcohol History How Often Do You Have a Drink Containing Alcohol: Never - Substance Use History Substance History: No History of Abuse - Travel History Recent Travel in the [place] Within the Last 8 Weeks: No Recent Travel Out of the Country Within the Last 8 Weeks: No - Immunization History Tetanus Immunization: Unsure Hx Influenza Vaccine This Season: Yes Medications and Allergies Active Medications: Active Medications Acetaminophen (Tylenol) 650 mg PO QID PRN PRN Reason: Pain Al Hydroxide/Mg Hydroxide (Milk Of Magnesia Liq) 30 ml PO Q12H PRN PRN Reason: Mild Constipation Baclofen (Lioresal) 10 mg PO QID [facility] Bisacodyl (Dulcolax Supp) 10 mg RECTAL DAILY PRN PRN Reason: SEVERE CONSITIPATION Escitalopram Oxalate (Lexapro) 10 mg PO DAILY [facility] Ferrous Sulfate (Ferosul) 325 mg PO DAILY [facility] Folic Acid (Folic Acid) 1 mg PO DAILY [facility] Furosemide (Lasix) 20 mg PO Q6HR [facility] Lactulose (Lactulose Liq) 30 ml PO DAILY PRN PRN Reason: SEVERE CONSITIPATION Methotrexate (Rheumatrex) 2.5 mg PO DAILY [facility] Morphine Sulfate (Morphine Inj) 4 mg IV.PUSH Q3H PRN PRN Reason: BREAKTHROUGH PAIN Naloxone HCl (Narcan Inj) 0.4 mg IV.PUSH UNSCH PRN PRN Reason: SEE LABEL COMMENTS Nitroglycerin (Nitrostat Sl (Override)) 0.4 mg SL Q5-15M PRN PRN Reason: Chest Pain Non-Formulary Medication (Magnesium Oxide-Mg Aa Chelate [Magnesium (Oxide/Aa Chelate)]) 400 mg PO DAILY [facility] Oxycodone/Acetaminophen (Percocet 10/325 Mg) 1 tab PO Q6H PRN PRN Reason: PAIN SCALE 6 TO 10 Oxycodone/Acetaminophen (Percocet 5/325 Mg) 1 tab PO Q6H PRN PRN Reason: PAIN SCALE 3 TO 5 Patch Removal (Remove Old Patch) 1 each T-DERMAL HS [facility] Rivaroxaban (Xarelto) 10 mg PO DAILY [facility] Ropinirole HCl (Requip) 2 mg PO TID [facility] Senna/Docusate Sodium (Polly-Colace) 1 tab PO BID [facility] Sennosides (Senokot) 17.2 mg PO Q12H PRN PRN Reason: Moderate Constipation Tamsulosin HCl (Flomax) 0.4 mg PO DAILY [facility] Allergies Allergy/AdvReac Type Severity Reaction Status Date / Time *MDRO Multi-Drug Resistant AdvReac Unknown Uncoded 08/19/17 05:58 Organism Home Medications Medication Instructions Recorded Confirmed Type acetaminophen 650 mg PO QID PRN 03/06/18 03/06/18 History baclofen 10 mg PO QID 03/06/18 03/06/18 History calcium carbonate-vitamin D3 1 tab PO BID 03/06/18 03/06/18 History [Caltrate 600 + D] escitalopram oxalate 10 mg PO DAILY 03/06/18 03/06/18 History ferrous sulfate 325 mg PO DAILY 03/06/18 03/06/18 History folic acid 1 mg PO DAILY 03/06/18 03/06/18 History furosemide [Lasix] 20 mg PO Q6HR 03/06/18 03/06/18 History magnesium oxide-Mg AA chelate 400 mg PO DAILY 03/06/18 03/06/18 History [Magnesium (oxide/AA chelate)] menthol [Biofreeze (menthol)] 4 % TOPICAL PRN PRN 03/06/18 03/06/18 History methotrexate sodium 2.5 mg PO DAILY 03/06/18 03/06/18 History jcpwjkep-pydqkbix-sbciuon fum 1 tbsp PO DAILY 03/06/18 03/06/18 History [Multi Vitamin] pejtv-hevpk-ecovcey-pramoxine 1 applic TOPICAL DAILY 03/06/18 03/06/18 History [Triple Antibiotic (pram) Extra] nitroglycerin 0.4 mg SUBLINGUAL Q5-15M PRN 03/06/18 03/06/18 History nystatin 1 applic TOPICAL BID 03/06/18 03/06/18 History oxycodone-acetaminophen 1 tab PO Q6H PRN 03/06/18 03/06/18 History rivaroxaban 10 mg PO DAILY 03/06/18 03/06/18 History ropinirole 2 mg PO TID 03/06/18 03/06/18 History tamsulosin [Flomax] 0.4 mg PO DAILY 03/06/18 03/06/18 History Exam Vital signs: Vital Signs 03/06/18 12:45 03/06/18 13:51 03/06/18 14:03 Temperature 97.5 F L Pulse Rate 72 70 70 Respiratory Rate 18 16 16 Blood Pressure 127/61 131/66 140/68 Pulse Oximetry 95 99 98 03/06/18 17:49 Temperature Pulse Rate 75 Respiratory Rate 16 Blood Pressure 160/65 H Pulse Oximetry 98 Intake & Output 03/05/18 03/06/18 03/06/18 18:59 06:59 18:59 Output Total 300 / 300 Balance -300 / -300 Weight 113.398 kg Output: Urine Amount (Catheter) 300 / 300 Indwelling Urethral Catheter 300 / 300 Narrative: A&O x 3 CN II-XII intact Motor 5/5 UE and LE Bruno in place Intact sensation throughout Results - Laboratory Findings CBC and BMP: 03/06/18 18:00 03/06/18 18:00 Abnormal lab findings: Abnormal Labs 03/06/18 13:50 Urine Clarity Cloudy H Urine Nitrate Positive H Urine Urobilinogen 2.0 H Ur Leukocyte Esterase Large H Urine WBC 58 H Urine WBC Clumps Few H Urine Bacteria Few H Urine Mucus Few H Assessment and Plan - Plan 73yoM with worsening back pain, unable to get MRI, bruno for chronic retention. CT L-spine reviewed showing L4/5 listhesis (gr 1) with stenosis. It is possible this is causative of the pain. Would recommend outpatient follow -up with Dr. Dhaliwal with standing L-spine xrays flex/ex. In the meantime, try an LSO brace (corset style) to assist with mobilization, no restrictions. Agree w/ pain control. No acute recommendations for surgery. Optimize UTI, comorbid conditions.
[2018-03-06 18:20] LABS: Baso % (Auto) 0.5 % (0.0-2.0); Hematocrit 31.8 % (39.0-51.0); Hemoglobin 10.6 gm/dL (13.0-17.0); Lymph # (Auto) 0.8 th/mm3 (1.0-4.8); Lymph % (Auto) 17.8 % (9.0-44.0); Mean Corpuscular HGB Conc 33.4 % (32.0-36.0); Mean Corpuscular Volume 95.7 fL (80.0-100.0); Mean Platelet Volume 8.5 fL (7.0-11.0); Mono # (Auto) 0.5 th/mm3 (0.0-0.9); Mono % (Auto) 10.8 % (0.0-8.0); Neut # (Auto) 3.1 th/mm3 (1.8-7.7); Neut % (Auto) 70.9 % (16.0-70.0); Platelet Count 170 th/mm3 (150-450); Red Blood Count 3.32 mil/mm3 (4.50-5.90); Red Cell Distribution Width 18.9 % (11.6-17.2); White Blood Count 4.4 th/mm3 (4.0-11.0)
[2018-03-06] MEDS: Baclofen 10 MG Tablet PO SCH ×2 (18:43→20:57)
[2018-03-06] MEDS: Furosemide 20 MG Tablet PO SCH (18:43)
--- NOTE | 2018-03-06 18:43 | P.HP ---
History of Present Illness Service: Hospitalist Primary Care Physician: Sarath Bob MD Chief Complaint: worsening back pain History of Present Illness: Patient is a 73-year-old male who is brought in by EMS from [facility] where he lives for back pain. Past medical history is extensive and includes anxiety, chronic lower extremity edema with stasis ulcers, hyperlipidemia, A. fib, anemia, hypertension, BPH, CHF, CABG 5, rheumatoid arthritis, chronic kidney disease, depression, restless legs, squamous cell carcinoma (getting radiation treatment) and pulmonary fibrosis. He does have an implanted pacemaker and is chronically anticoagulated on Xarelto. He has a history of chronic lower back pain however he reports that it is become increasingly worse over the past week or so. He attributes the increased pain to having had to sit on a hard bench for over 3 hours. He now rates his pain as 10/10 constantly. He denies saddle anesthesia, lower extremity paresthesias or episodes of incontinence. Incontinence is hard to evaluate as he has a chronic Bustamante catheter due to a stricture and urinary retention. He did have x- rays 2 days ago which indicated moderate disc space loss, degenerative endplate changes and osteophytes. CT spine was done in the ED. Patient is seen and evaluated with neurosurgeon present. Patient tells me he gets some mild relief when laying on his side but the pain is never better than a 5/5. He really would like to have back surgery however it is explained to him that this is not really an option and he agrees to try pain management. He did not realize that he had a urinary tract infection. Reports that he was scheduled to have a suprapubic catheter placed and had an appointment on Friday for evaluation however he did not go to that appointment. Currently denies any chest pain or shortness of breath worse than his baseline. No nausea vomiting or diarrhea. No fever chills. He is hungry and would like to eat. - Diagnosis (1) Intractable low back pain (2) Acute UTI Review of Systems All other systems reviewed negative except as stated in HPI PMFSH - History History Provided By: Patient - Medical History Medical History: Medical History (Last Updated 03/06/18 @ 18:38 by PAZ Tristan) Fall (Acute) Insomnia (Acute) Anxiety (Acute) Edema (Acute) Hematuria (Acute) Chronic back pain (Acute) Hyperlipidemia (Acute) Afib (Acute) Anemia (Acute) HTN (hypertension) (Acute) Anemia Atherosclerosis BPH (benign prostatic hyperplasia) CHF (congestive heart failure) Chronic kidney disease Depression Hx of fracture of femur Rheumatoid arthritis Squamous cell carcinoma of scalp - Surgical History Surgical History: Surgical History (Last Updated 03/06/18 @ 18:37 by PAZ Tristan) H/O shoulder surgery History of lung surgery S/P CABG x 5 - Family History Family History: Family History (Last Updated 03/06/18 @ 18:37 by PAZ Tristan) Other Family history non-contributory - Social History I have reviewed the patient's Social History: Yes - Tobacco History Second Hand Smoke Exposure: No Tobacco Use In Past 30 Days: No Smoking Status: Never smoker - Alcohol History How Often Do You Have a Drink Containing Alcohol: Never - Substance Use History Substance History: No History of Abuse - Travel History Recent Travel in the [place] Within the Last 8 Weeks: No Recent Travel Out of the Country Within the Last 8 Weeks: No - Immunization History Tetanus Immunization: Unsure Hx Influenza Vaccine This Season: Yes Medications and Allergies Active Medications: Active Medications Acetaminophen (Tylenol) 650 mg PO QID PRN PRN Reason: Pain Al Hydroxide/Mg Hydroxide (Milk Of Magnesia Liq) 30 ml PO Q12H PRN PRN Reason: Mild Constipation Baclofen (Lioresal) 10 mg PO QID [facility] Bisacodyl (Dulcolax Supp) 10 mg RECTAL DAILY PRN PRN Reason: SEVERE CONSITIPATION Escitalopram Oxalate (Lexapro) 10 mg PO DAILY [facility] Ferrous Sulfate (Ferosul) 325 mg PO DAILY [facility] Folic Acid (Folic Acid) 1 mg PO DAILY [facility] Furosemide (Lasix) 20 mg PO Q6HR [facility] Lactulose (Lactulose Liq) 30 ml PO DAILY PRN PRN Reason: SEVERE CONSITIPATION Methotrexate (Rheumatrex) 2.5 mg PO DAILY [facility] Morphine Sulfate (Morphine Inj) 4 mg IV.PUSH Q3H PRN PRN Reason: BREAKTHROUGH PAIN Naloxone HCl (Narcan Inj) 0.4 mg IV.PUSH UNSCH PRN PRN Reason: SEE LABEL COMMENTS Nitroglycerin (Nitrostat Sl (Override)) 0.4 mg SL Q5-15M PRN PRN Reason: Chest Pain Non-Formulary Medication (Magnesium Oxide-Mg Aa Chelate [Magnesium (Oxide/Aa Chelate)]) 400 mg PO DAILY [facility] Oxycodone/Acetaminophen (Percocet 10/325 Mg) 1 tab PO Q6H PRN PRN Reason: PAIN SCALE 6 TO 10 Oxycodone/Acetaminophen (Percocet 5/325 Mg) 1 tab PO Q6H PRN PRN Reason: PAIN SCALE 3 TO 5 Patch Removal (Remove Old Patch) 1 each T-DERMAL HS [facility] Rivaroxaban (Xarelto) 10 mg PO DAILY [facility] Ropinirole HCl (Requip) 2 mg PO TID [facility] Senna/Docusate Sodium (Polly-Colace) 1 tab PO BID [facility] Sennosides (Senokot) 17.2 mg PO Q12H PRN PRN Reason: Moderate Constipation Tamsulosin HCl (Flomax) 0.4 mg PO DAILY [facility] Allergies Allergy/AdvReac Type Severity Reaction Status Date / Time *MDRO Multi-Drug Resistant AdvReac Unknown Uncoded 08/19/17 05:58 Organism Home Medications Medication Instructions Recorded Confirmed Type acetaminophen 650 mg PO QID PRN 03/06/18 03/06/18 History baclofen 10 mg PO QID 03/06/18 03/06/18 History calcium carbonate-vitamin D3 1 tab PO BID 03/06/18 03/06/18 History [Caltrate 600 + D] escitalopram oxalate 10 mg PO DAILY 03/06/18 03/06/18 History ferrous sulfate 325 mg PO DAILY 03/06/18 03/06/18 History folic acid 1 mg PO DAILY 03/06/18 03/06/18 History furosemide [Lasix] 20 mg PO Q6HR 03/06/18 03/06/18 History magnesium oxide-Mg AA chelate 400 mg PO DAILY 03/06/18 03/06/18 History [Magnesium (oxide/AA chelate)] menthol [Biofreeze (menthol)] 4 % TOPICAL PRN PRN 03/06/18 03/06/18 History methotrexate sodium 2.5 mg PO DAILY 03/06/18 03/06/18 History ohtayyye-yjktwdrn-hnvtbtl fum 1 tbsp PO DAILY 03/06/18 03/06/18 History [Multi Vitamin] blktp-pfkbt-uqnsykd-pramoxine 1 applic TOPICAL DAILY 03/06/18 03/06/18 History [Triple Antibiotic (pram) Extra] nitroglycerin 0.4 mg SUBLINGUAL Q5-15M PRN 03/06/18 03/06/18 History nystatin 1 applic TOPICAL BID 03/06/18 03/06/18 History oxycodone-acetaminophen 1 tab PO Q6H PRN 03/06/18 03/06/18 History rivaroxaban 10 mg PO DAILY 03/06/18 03/06/18 History ropinirole 2 mg PO TID 03/06/18 03/06/18 History tamsulosin [Flomax] 0.4 mg PO DAILY 03/06/18 03/06/18 History Exam Vital signs: Vital Signs 03/06/18 12:45 03/06/18 13:51 03/06/18 14:03 Temperature 97.5 F L Pulse Rate 72 70 70 Respiratory Rate 18 16 16 Blood Pressure 127/61 131/66 140/68 Pulse Oximetry 95 99 98 03/06/18 17:49 Temperature Pulse Rate 75 Respiratory Rate 16 Blood Pressure 160/65 H Pulse Oximetry 98 Intake & Output 03/05/18 03/06/18 03/06/18 18:59 06:59 18:59 Output Total 300 / 300 Balance -300 / -300 Weight 113.398 kg Output: Urine Amount (Catheter) 300 / 300 Indwelling Urethral Catheter 300 / 300 Narrative: GENERAL: Well-nourished, well-developed adult male in no obvious distress. SKIN: Warm and dry. 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 HEAD: Atraumatic. Normocephalic. CARDIOVASCULAR: Regular rate and rhythm. Pacemaker in left chest wall. RESPIRATORY: No accessory muscle use. Clear to auscultation. Breath sounds diminished. GASTROINTESTINAL: Abdomen soft, non-tender, non-distended. Positive bowel sounds. MUSCULOSKELETAL: Bilateral lower extremities in [place] wrap. mild tenderness through lumbar spine. Normal leg strength and range of motion. NEUROLOGICAL: Awake and alert. No obvious cranial nerve deficits. Motor grossly within normal limits. Normal speech. PSYCHIATRIC: Appropriate mood and affect; insight and judgment good. Results - Labs Labs: Laboratory Results - last 24 hr 03/06/18 13:50 Urine Color Yellow Urine Clarity Cloudy H Urine pH 6.0 Ur Specific [place] 1.014 Urine Protein Negative Urine Glucose (UA) Negative Urine Ketones Negative Urine Occult Blood Negative Urine Nitrate Positive H Urine Bilirubin Negative Urine Urobilinogen 2.0 H Ur Leukocyte Esterase Large H Urine RBC 2 Urine WBC 58 H Urine WBC Clumps Few H Ur Squamous Epith Cells <1 Urine Bacteria Few H Urine Mucus Few H Micro UA Comment Culture indicated Ur Microscopic Review Not Reportable Urine Culture Comments Culture indicated - Imaging Impressions Lumbar Spine CT 03/06/18 13:31 CONCLUSION: 1. Moderate to severe central spinal stenosis at L4-5 secondary to degenerative anterolisthesis and hypertrophic facet arthropathy. 2. Superior endplate depression of L5 characteristic of mild compression fracture however age is uncertain. 3. Moderate bilateral foraminal encroachment at L4-5 4. No evidence of significant disc herniation. Caprini VTE Risk Assessment Caprini VTE Risk Assessment: No/Low Risk (score <= 1) Caprini Risk Assessment Model: Point Value = 1 Point Value = 2 Point Value = 3 Point Value = 5 Age 41-60 Minor surgery BMI > 25 kg/m2 Swollen legs Varicose veins or History of unexplained or recurrent spontaneous Oral contraceptives or hormone replacement Sepsis (< 1 month) Serious lung disease, including pneumonia (< 1 month) Abnormal pulmonary function Acute myocardial infarction Congestive heart failure (< 1 month) History of inflammatory bowel disease Medical patient at bed rest Age 61-74 Arthroscopic surgery Major open surgery (> 45 min) Laparoscopic surgery (> 45 min) Malignancy Confined to bed (> 72 hours) Immobilizing plaster cast Central venous access Age >= 75 History of VTE Family history of VTE Factor V Leiden Prothrombin [id number] Lupus anticoagulant Anticardiolipin antibodies Elevated serum homocysteine Heparin-induced thrombocytopenia Other congenital or acquired thrombophilia Stroke (< 1 month) Elective arthroplasty Hip, pelvis, or leg fracture Acute spinal cord injury (< 1 month) Prophylaxis Regimen: Total Risk Factor Score Risk Level Prophylaxis Regimen 0-1 Low Early ambulation 2 Moderate Order ONE of the following: *Sequential Compression Device (SCD) *Heparin 5000 units SQ BID 3-4 Higher Order ONE of the following medications: *Heparin 5000 units SQ TID *Enoxaparin/Lovenox 40 mg SQ daily (WT < 150 kg, CrCl > 30 mL/min) *Enoxaparin/Lovenox 30 mg SQ daily (WT < 150 kg, CrCl > 10-29 mL/min) *Enoxaparin/Lovenox 30 mg SQ BID (WT < 150 kg, CrCl > 30 mL/min) AND/OR *Sequential Compression Device (SCD) 5 or more Highest Order ONE of the following medications: *Heparin 5000 units SQ TID (Preferred with Epidurals) *Enoxaparin/Lovenox 40 mg SQ daily (WT < 150 kg, CrCl > 30 mL/min) *Enoxaparin/Lovenox 30 mg SQ daily (WT < 150 kg, CrCl > 10-29 mL/min) *Enoxaparin/Lovenox 30 mg SQ BID (WT < 150 kg, CrCl > 30 mL/min) AND *Sequential Compression Device (SCD) Assessment and Plan - Assessment (1) Intractable low back pain Code(s): M54.5 - Low back pain Status: Acute (2) Acute UTI Code(s): N39.0 - Urinary tract infection, site not specified Status: Acute - Plan Patient is a 73-year-old male who is brought in by EMS (from [facility] where he lives) for back pain. Past medical history is extensive and includes anxiety, chronic lower extremity edema with stasis ulcers, hyperlipidemia, A. fib, anemia, hypertension, BPH, CHF, CABG 5, rheumatoid arthritis, chronic kidney disease, depression, restless legs, squamous cell carcinoma (getting radiation treatment) and pulmonary fibrosis. He does have an implanted pacemaker and is chronically anticoagulated on Xarelto. He has a history of chronic lower back pain however he reports that it is become increasingly worse over the past week or so. He attributes the increased pain to having had to sit on a hard bench for over 3 hours. Central spinal stenosis/back pain -Pain management; patient is on chronic narcotics will continue with same. ore database consulted. -Neuro surgery consulted; conservative management recommended at this time including back brace. -Orthotec consult placed for back brace Urinary tract infection -Patient arrived with Bustamante catheter over 1.5 weeks insertion time; change catheter -Received Rocephin in ED, will continue; monitor cultures for sensitivity Chronic stasis ulcers -Wound care ordered to evaluate and treat DVT prophylaxis: Patient is on Xarelto for A. fib, continue Discussed with: Patient, nurse, Dr. Little, Dr. Wiggins, Dr. Oliveira
[2018-03-06 18:44] LABS: Calcium 8.5 mg/dL (8.5-10.1); Carbon Dioxide 28.4 meq/L (21.0-32.0); Potassium 4.1 meq/L (3.5-5.1)
--- NOTE | 2018-03-06 18:57 | XR ---
EXAM DATE: 03/06/2018 6:51 PM EDT AGE/SEX: 73 years / Male INDICATIONS: Evaluate for pulmonary fibrosis. CLINICAL DATA: This is the patient's initial encounter. Patient reports that signs and symptoms have been present for 1 day and indicates a pain score of 0/10. MEDICAL/SURGICAL HISTORY: . Congestive heart failure. Hypertension. None. COMPARISON: . FINDINGS: Mild parenchymal consolidation seen of both bases, left slightly worse than right. Basilar interstiti um is mildly prominent. No pleural effusion demonstrated. No pneumothorax. Heart size stable, upper limits of normal. Changes of median sternotomy and coronary artery bypass gr aft operation again noted. A cardiac pacer is again seen. CONCLUSION: 1. Mild interstitial changes at both bases and mild pulmonary fibrosis is not excludable. 2. Mild, left greater than right basilar airspace disease as well. Electronically signed by: Isaias Burgos MD 03/06/2018 6:55 PM EDT
[2018-03-06] MEDS: Senna/Docusate Sodium 8.6/50 MG Tablet PO SCH (20:57)
[2018-03-07] MEDS: Furosemide 20 MG Tablet PO SCH ×3 (00:50→13:07)
[2018-03-07 07:21] LABS: Baso % (Auto) 0.3 % (0.0-2.0); Hematocrit 31.3 % (39.0-51.0); Hemoglobin 10.6 gm/dL (13.0-17.0); Lymph # (Auto) 0.4 th/mm3 (1.0-4.8); Lymph % (Auto) 10.8 % (9.0-44.0); Mean Corpuscular HGB Conc 33.7 % (32.0-36.0); Mean Corpuscular Hemoglobin 32.1 pg (27.0-34.0); Mean Corpuscular Volume 95.1 fL (80.0-100.0); Mean Platelet Volume 9.2 fL (7.0-11.0); Mono # (Auto) 0.1 th/mm3 (0.0-0.9); Mono % (Auto) 3.3 % (0.0-8.0); Neut % (Auto) 85.6 % (16.0-70.0); Platelet Count 170 th/mm3 (150-450); Red Blood Count 3.29 mil/mm3 (4.50-5.90); Red Cell Distribution Width 18.7 % (11.6-17.2); White Blood Count 3.6 th/mm3 (4.0-11.0)
[2018-03-07 07:42] LABS: Calcium 8.7 mg/dL (8.5-10.1); Carbon Dioxide 25.8 meq/L (21.0-32.0); Potassium 4.3 meq/L (3.5-5.1)
[2018-03-07] MEDS: Baclofen 10 MG Tablet PO SCH ×2 (08:40→13:07)
[2018-03-07] MEDS: Senna/Docusate Sodium 8.6/50 MG Tablet PO SCH (08:40)
[2018-03-07] MEDS ORDERED: Rivaroxaban 10 MG Tablet PO SCH (09:00)
[2018-03-07] MEDS ORDERED: Folic Acid 1 MG Tablet PO SCH (09:00)
[2018-03-07] MEDS ORDERED: Ferrous Sulfate 325 MG Tablet PO SCH (09:00)
[2018-03-07] MEDS ORDERED: Escitalopram 10 MG Tablet PO SCH (09:00)
[2018-03-07] MEDS ORDERED: Magnesium Oxide 400 MG Tablet PO SCH (11:00)
--- NOTE | 2018-03-07 13:14 | P.PN ---
Subjective Interval history: Patient is seen sitting up in bed eating breakfast. Appears considerably less painful and agrees that he is better today. Reports the catheter was changed as instructed. No new complaints. No shortness of breath or chest pain. No nausea vomiting or diarrhea. No fever or chills. He reports that he would like to return home whenever possible. Physical Exam Vital signs: Vital Signs 03/06/18 13:51 03/06/18 14:03 03/06/18 17:49 Temperature Pulse Rate 70 70 75 Respiratory Rate 16 16 16 Blood Pressure 131/66 140/68 160/65 H Pulse Oximetry 99 98 98 03/06/18 18:21 03/06/18 19:00 03/06/18 19:06 Temperature Pulse Rate 70 Respiratory Rate 16 16 16 Blood Pressure 124/58 L Pulse Oximetry 98 03/06/18 20:00 03/07/18 00:00 03/07/18 04:00 Temperature 98.9 F 97.7 F 97.6 F Pulse Rate 62 62 60 Respiratory Rate 20 20 18 Blood Pressure 138/64 174/79 H 148/73 H Pulse Oximetry 93 L 97 97 03/07/18 06:22 03/07/18 08:25 03/07/18 12:36 Temperature 98.2 F Pulse Rate 80 80 Respiratory Rate 16 20 20 Blood Pressure 170/77 H 122/57 L Pulse Oximetry 96 98 Intake & Output 03/06/18 03/07/18 03/07/18 18:59 06:59 18:59 Intake Total 100 / 100 100 / 100 Output Total 300 / 300 Balance -200 / -200 100 / 100 Weight 113.398 kg Intake: IV 100 / 100 100 / 100 Rocephin Inj 1,000 MG In NS Inj 100 / 100 100 / 100 100 ML @ 200 mls/hr IV.SIG Q12H [facility] Rx#:[id number] Output: Urine Amount (Catheter) 300 / 300 Indwelling Urethral Catheter 300 / 300 Other: Bladder Irrigation Fluid - Amount Drained Indwelling Urethral Catheter 600 Narrative: GENERAL: Well-nourished, well-developed adult male in no obvious distress. SKIN: Warm and dry. 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 HEAD: Atraumatic. Normocephalic. CARDIOVASCULAR: Regular rate and rhythm. Pacemaker in left chest wall. RESPIRATORY: No accessory muscle use. Clear to auscultation. Breath sounds diminished. GASTROINTESTINAL: Abdomen soft, non-tender, non-distended. Positive bowel sounds. MUSCULOSKELETAL: Bilateral lower extremities in [place] wrap. mild tenderness through lumbar spine. Normal leg strength and range of motion. NEUROLOGICAL: Awake and alert. No obvious cranial nerve deficits. Motor grossly within normal limits. Normal speech. PSYCHIATRIC: Appropriate mood and affect; insight and judgment good. - Urinary Catheter Management Indwelling Urethral Catheter Cath placed during this visit: yes Reason for continuing: Acute urinary retention Insertion date: 03/06/18 Insertion time: 00:00 Results - Labs CBC & Chem 7: 03/07/18 06:05 03/07/18 06:05 Laboratory Results - last 24 hr 03/06/18 03/06/18 03/06/18 13:50 18:00 18:00 WBC 4.4 RBC 3.32 L Hgb 10.6 L Hct 31.8 L MCV 95.7 MCH 32.0 MCHC 33.4 RDW 18.9 H Plt Count 170 MPV 8.5 Neut % (Auto) 70.9 H Lymph % (Auto) 17.8 [place] % (Auto) 10.8 H Eos % (Auto) 0.0 Baso % (Auto) 0.5 Neut # (Auto) 3.1 Lymph # (Auto) 0.8 L [place] # (Auto) 0.5 Eos # (Auto) 0.0 Baso # (Auto) 0.0 WBC Differential . Differential Comment Auto diff final Sodium 140 Potassium 4.1 Chloride 104 Carbon Dioxide 28.4 Anion Gap 8 BUN 16 Creatinine 1.16 Estimated GFR 61 L Random Glucose 89 Calcium 8.5 Urine Color Yellow Urine Clarity Cloudy H Urine pH 6.0 Ur Specific [place] 1.014 Urine Protein Negative Urine Glucose (UA) Negative Urine Ketones Negative Urine Occult Blood Negative Urine Nitrate Positive H Urine Bilirubin Negative Urine Urobilinogen 2.0 H Ur Leukocyte Esterase Large H Urine RBC 2 Urine WBC 58 H Urine WBC Clumps Few H Ur Squamous Epith Cells <1 Urine Bacteria Few H Urine Mucus Few H Micro UA Comment Culture indicated Ur Microscopic Review Not Reportable Urine Culture Comments Culture indicated 03/07/18 03/07/18 06:05 06:05 WBC 3.6 L RBC 3.29 L Hgb 10.6 L Hct 31.3 L MCV 95.1 MCH 32.1 MCHC 33.7 RDW 18.7 H Plt Count 170 MPV 9.2 Neut % (Auto) 85.6 H Lymph % (Auto) 10.8 [place] % (Auto) 3.3 Eos % (Auto) 0.0 Baso % (Auto) 0.3 Neut # (Auto) 3.0 Lymph # (Auto) 0.4 L [place] # (Auto) 0.1 Eos # (Auto) 0.0 Baso # (Auto) 0.0 WBC Differential . Differential Comment Auto diff final Sodium 138 Potassium 4.3 Chloride 104 Carbon Dioxide 25.8 Anion Gap 8 BUN 18 Creatinine 1.00 Estimated GFR 73 L Random Glucose 135 H Calcium 8.7 Urine Color Urine Clarity Urine pH Ur Specific [place] Urine Protein Urine Glucose (UA) Urine Ketones Urine Occult Blood Urine Nitrate Urine Bilirubin Urine Urobilinogen Ur Leukocyte Esterase Urine RBC Urine WBC Urine WBC Clumps Ur Squamous Epith Cells Urine Bacteria Urine Mucus Micro UA Comment Ur Microscopic Review Urine Culture Comments Microbiology 03/06/18 13:50 Clean Catch Urine Urine Culture - Preliminary gram negative rods - Imaging Impressions Chest X-Ray 03/06/18 00:00 CONCLUSION: 1. Mild interstitial changes at both bases and mild pulmonary fibrosis is not excludable. 2. Mild, left greater than right basilar airspace disease as well. Lumbar Spine CT 03/06/18 13:31 CONCLUSION: 1. Moderate to severe central spinal stenosis at L4-5 secondary to degenerative anterolisthesis and hypertrophic facet arthropathy. 2. Superior endplate depression of L5 characteristic of mild compression fracture however age is uncertain. 3. Moderate bilateral foraminal encroachment at L4-5 4. No evidence of significant disc herniation. Assessment and Plan - Assessment (1) Intractable low back pain Code(s): M54.5 - Low back pain Status: Acute (2) Acute UTI Code(s): N39.0 - Urinary tract infection, site not specified Status: Acute - Plan Patient is a 73-year-old male who is brought in by EMS (from [facility] where he lives) for back pain. Past medical history is extensive and includes anxiety, chronic lower extremity edema with stasis ulcers, hyperlipidemia, A. fib, anemia, hypertension, BPH, CHF, CABG 5, rheumatoid arthritis, chronic kidney disease, depression, restless legs, squamous cell carcinoma (getting radiation treatment) and pulmonary fibrosis. He does have an implanted pacemaker and is chronically anticoagulated on Xarelto. He has a history of chronic lower back pain however he reports that it is become increasingly worse over the past week or so. He attributes the increased pain to having had to sit on a hard bench for over 3 hours. Central spinal stenosis/back pain -Pain management; patient is on chronic narcotics will continue with same. [employer] database consulted. -Neuro surgery consulted; conservative management recommended at this time including back brace. -Orthotec consult placed for back brace; will try to have placed at [facility] Urinary tract infection -Patient arrived with Bustamante catheter over 1.5 weeks insertion time; changed catheter -Received Rocephin in ED, will continue; monitor cultures for sensitivity. D/C on Keflex; f/u on cultures post dc Chronic stasis ulcers -Wound care ordered to evaluate and treat DVT prophylaxis: Patient is on Xarelto for A. fib, continue Discussed with: Patient, nurse, Dr. Phelps
--- NOTE | 2018-03-07 13:30 | P.DS ---
Date of admission: 03/06/18 17:34 Primary care physician: Sarath Bob MD Attending physician on discharge: Triston Phelps Anticipated date of discharge: 03/07/18 Brief History from admission: Patient is a 73-year-old male who is brought in by EMS from [facility] where he lives for back pain. Past medical history is extensive and includes anxiety, chronic lower extremity edema with stasis ulcers, hyperlipidemia, A. fib, anemia, hypertension, BPH, CHF, CABG 5, rheumatoid arthritis, chronic kidney disease, depression, restless legs, squamous cell carcinoma (getting radiation treatment) and pulmonary fibrosis. He does have an implanted pacemaker and is chronically anticoagulated on Xarelto. He has a history of chronic lower back pain however he reports that it is become increasingly worse over the past week or so. He attributes the increased pain to having had to sit on a hard bench for over 3 hours. He now rates his pain as 10/10 constantly. He denies saddle anesthesia, lower extremity paresthesias or episodes of incontinence. Incontinence is hard to evaluate as he has a chronic Bustamante catheter due to a stricture and urinary retention. He did have x- rays 2 days ago which indicated moderate disc space loss, degenerative endplate changes and osteophytes. CT spine was done in the ED. Patient is seen and evaluated with neurosurgeon present. Patient tells me he gets some mild relief when laying on his side but the pain is never better than a 5/5. He really would like to have back surgery however it is explained to him that this is not really an option and he agrees to try pain management. He did not realize that he had a urinary tract infection. Reports that he was scheduled to have a suprapubic catheter placed and had an appointment on Friday for evaluation however he did not go to that appointment. Currently denies any chest pain or shortness of breath worse than his baseline. No nausea vomiting or diarrhea. No fever chills. He is hungry and would like to eat. DS: Diagnosis - Discharge Diagnosis (1) Intractable low back pain Status: Resolved (2) Acute UTI Status: Acute DS: Medications - Discharge Medications Prescriptions: cephalexin 250 mg PO Q6HR #20 cap DS: Summary Hospital Course: Patient is a 73-year-old male who is brought in by EMS (from [facility] where he lives) for back pain. Past medical history is extensive and includes anxiety, chronic lower extremity edema with stasis ulcers, hyperlipidemia, A. fib, anemia, hypertension, BPH, CHF, CABG 5, rheumatoid arthritis, chronic kidney disease, depression, restless legs, squamous cell carcinoma (getting radiation treatment) and pulmonary fibrosis. He does have an implanted pacemaker and is chronically anticoagulated on Xarelto. He has a history of chronic lower back pain however he reports that it is become increasingly worse over the past week or so. He attributes the increased pain to having had to sit on a hard bench for over [address] indicates central spinal stenosis/back pain. Neuro surgery consulted; conservative/medical management recommended at this time including back brace. Orthotec consult placed for back brace; will try to have placed at [facility]. Urinary tract infection: Patient arrived with Bustamante catheter over 1.5 weeks insertion time; changed catheter 03/06/18. Received Rocephin in ED, D/C on Keflex ; f/u on cultures post dc - Time Spent with Patient Total time spent providing and/or coordinating discharge services: Less than 30 minutes - Quality: VTE Deep Vein Thrombosis/Pulmonary Embolism Present on Admission: No Exam Vital signs: Vital Signs 03/06/18 13:51 03/06/18 14:03 03/06/18 17:49 Temperature Pulse Rate 70 70 75 Respiratory Rate 16 16 16 Blood Pressure 131/66 140/68 160/65 H Pulse Oximetry 99 98 98 03/06/18 18:21 03/06/18 19:00 03/06/18 19:06 Temperature Pulse Rate 70 Respiratory Rate 16 16 16 Blood Pressure 124/58 L Pulse Oximetry 98 03/06/18 20:00 03/07/18 00:00 03/07/18 04:00 Temperature 98.9 F 97.7 F 97.6 F Pulse Rate 62 62 60 Respiratory Rate 20 20 18 Blood Pressure 138/64 174/79 H 148/73 H Pulse Oximetry 93 L 97 97 03/07/18 06:22 03/07/18 08:25 03/07/18 12:36 Temperature 98.2 F Pulse Rate 80 80 Respiratory Rate 16 20 20 Blood Pressure 170/77 H 122/57 L Pulse Oximetry 96 98 Intake & Output 03/06/18 03/07/18 03/07/18 18:59 06:59 18:59 Intake Total 100 / 100 100 / 100 Output Total 300 / 300 Balance -200 / -200 100 / 100 Weight 113.398 kg Intake: IV 100 / 100 100 / 100 Rocephin Inj 1,000 MG In NS Inj 100 / 100 100 / 100 100 ML @ 200 mls/hr IV.SIG Q12H [facility] Rx#:[id number] Output: Urine Amount (Catheter) 300 / 300 Indwelling Urethral Catheter 300 / 300 Other: Bladder Irrigation Fluid - Amount Drained Indwelling Urethral Catheter 600 Narrative: GENERAL: Well-nourished, well-developed adult male in no obvious distress. SKIN: Warm and dry. 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 HEAD: Atraumatic. Normocephalic. CARDIOVASCULAR: Regular rate and rhythm. Pacemaker in left chest wall. RESPIRATORY: No accessory muscle use. Clear to auscultation. Breath sounds diminished. GASTROINTESTINAL: Abdomen soft, non-tender, non-distended. Positive bowel sounds. MUSCULOSKELETAL: Bilateral lower extremities in [place] wrap. mild tenderness through lumbar spine. Normal leg strength and range of motion. NEUROLOGICAL: Awake and alert. No obvious cranial nerve deficits. Motor grossly within normal limits. Normal speech. PSYCHIATRIC: Appropriate mood and affect; insight and judgment good. Results Procedures completed during hospitalization: none Labs on day of discharge: Labs from last 24 hours 03/07/18 03/07/18 03/06/18 06:05 06:05 18:00 WBC 3.6 L 4.4 RBC 3.29 L 3.32 L Hgb 10.6 L 10.6 L Hct 31.3 L 31.8 L MCV 95.1 95.7 MCH 32.1 32.0 MCHC 33.7 33.4 RDW 18.7 H 18.9 H Plt Count 170 170 MPV 9.2 8.5 Neut % (Auto) 85.6 H 70.9 H Lymph % (Auto) 10.8 17.8 [place] % (Auto) 3.3 10.8 H Eos % (Auto) 0.0 0.0 Baso % (Auto) 0.3 0.5 Neut # (Auto) 3.0 3.1 Lymph # (Auto) 0.4 L 0.8 L [place] # (Auto) 0.1 0.5 Eos # (Auto) 0.0 0.0 Baso # (Auto) 0.0 0.0 WBC Differential . . Differential Comment Auto diff final Auto diff final Sodium 138 Potassium 4.3 Chloride 104 Carbon Dioxide 25.8 Anion Gap 8 BUN 18 Creatinine 1.00 Estimated GFR 73 L Random Glucose 135 H Calcium 8.7 Urine Color Urine Clarity Urine pH Ur Specific [place] Urine Protein Urine Glucose (UA) Urine Ketones Urine Occult Blood Urine Nitrate Urine Bilirubin Urine Urobilinogen Ur Leukocyte Esterase Urine RBC Urine WBC Urine WBC Clumps Ur Squamous Epith Cells Urine Bacteria Urine Mucus Micro UA Comment Ur Microscopic Review Urine Culture Comments 03/06/18 03/06/18 18:00 13:50 WBC RBC Hgb Hct MCV MCH MCHC RDW Plt Count MPV Neut % (Auto) Lymph % (Auto) [place] % (Auto) Eos % (Auto) Baso % (Auto) Neut # (Auto) Lymph # (Auto) [place] # (Auto) Eos # (Auto) Baso # (Auto) WBC Differential Differential Comment Sodium 140 Potassium 4.1 Chloride 104 Carbon Dioxide 28.4 Anion Gap 8 BUN 16 Creatinine 1.16 Estimated GFR 61 L Random Glucose 89 Calcium 8.5 Urine Color Yellow Urine Clarity Cloudy H Urine pH 6.0 Ur Specific [place] 1.014 Urine Protein Negative Urine Glucose (UA) Negative Urine Ketones Negative Urine Occult Blood Negative Urine Nitrate Positive H Urine Bilirubin Negative Urine Urobilinogen 2.0 H Ur Leukocyte Esterase Large H Urine RBC 2 Urine WBC 58 H Urine WBC Clumps Few H Ur Squamous Epith Cells <1 Urine Bacteria Few H Urine Mucus Few H Micro UA Comment Culture indicated Ur Microscopic Review Not Reportable Urine Culture Comments Culture indicated Preliminary micro results at discharge 03/06/18 13:50 Urine Culture - Preliminary Clean Catch Urine gram negative rods - Impressions ITS Impressions Chest X-Ray 03/06/18 00:00 CONCLUSION: 1. Mild interstitial changes at both bases and mild pulmonary fibrosis is not excludable. 2. Mild, left greater than right basilar airspace disease as well. Lumbar Spine CT 03/06/18 13:31 CONCLUSION: 1. Moderate to severe central spinal stenosis at L4-5 secondary to degenerative anterolisthesis and hypertrophic facet arthropathy. 2. Superior endplate depression of L5 characteristic of mild compression fracture however age is uncertain. 3. Moderate bilateral foraminal encroachment at L4-5 4. No evidence of significant disc herniation. Discharge Plan - Discharge Disposition Patient Disposition: 03 Discharge to SNF - Discharge Condition Condition: Stable - Discharge Order Discharge Orders: Discharge Order (Routine); Ordered 03/07/18 Ordered By: Eliz Stockton - Physicians Team Primary Care Provider: Sarath Bob Attending Provider: Triston Phelps Other Providers: Shantanu Russell MD ; [facility],[place]
[2018-03-07 15:38] VITALS: BP 140/60; PULSE 61; RESP 18; TEMP 98.4; O2SAT 97
== END 2018-03-07 19:07 ==
LOC: NEDA 12:40 → NEPD 12:40 → NEDA 19:07 → NEPGCP 19:20
PROVIDERS: ADMIT Hospitalist; ATTEND Hospitalist